=== PATIENT | male | born 1930 | race Caucasian/White ===

== ENCOUNTER 2016-10-02 02:34 | Inpatient (IN) | payer MEDICARE, MEDICAID ==
[2016-10-02] MEDS ORDERED: IPRATROPIUM/ALBUTEROL 0.5-2.5 MG/3 ML AMPUL NEB ONE ×2 (03:10→03:12)
[2016-10-02] MEDS ORDERED: ONDANSETRON HCL INJ/PF 4 MG/2 ML SDV IV ONE (03:10)
--- NOTE | 2016-10-02 03:17 | ER Document Report ---
ED General - General Chief Complaint: Shortness Of Breath Stated Complaint: ABDOMINAL PAIN Time seen by provider: 03:13 Notes: Patient is an 86-year-old male that comes by EMS from [facility] for chief complaint of shortness of breath and coughing up sputum with blood in it. Patient reports that he "threw up" 4 times and had "globs with some red blood in it" but [facility] report states the patient coughed up sputum and the blood. Patient received an initial DuoNeb from EMS after he was found to be 78% on 2 L nasal cannula on arrival, patient does state he is improved, patient states has been coughing for several days, no fever reported. Past medical history of COPD, CAD, hypertension, type II diabetes, DVT, on aspirin. TRAVEL OUTSIDE OF THE [place] IN LAST 30 DAYS: No - Related Data Allergies/Adverse Reactions: cortisone [Cortisone] Allergy (Intermediate, Verified 09/29/15 11:53) Abnormal behavior Past Medical History - General Information source: Patient, Emergency Med Personnel - Social History Smoking Status: Former Smoker Frequency of alcohol use: None Drug Abuse: None Lives with: Custodial Family History: Reviewed & Not Pertinent - Past Medical History Cardiac Medical History: Reports: Hx Hypercholesterolemia, Hx Hypertension Pulmonary Medical History: Reports: Hx Asthma, Hx Bronchitis, Hx COPD, Hx Pneumonia Denies: Hx Tuberculosis Endocrine Medical History: Reports: Hx Diabetes Mellitus Type 1, Hx Diabetes Mellitus Type 2 Renal/ Medical History: Reports: Hx Kidney Stones Musculoskeltal Medical History: Reports Hx Arthritis Skin Medical History: Reports Hx MRSA Psychiatric Medical History: Reports: Hx Anxiety, Hx Depression Past Surgical History: Reports: Hx Tonsillectomy, Hx Urinary Tract Surgery - Immunizations Hx Diphtheria, Pertussis, Tetanus Vaccination: No Hx Pneumococcal Vaccination: 09/22/12 Review of Systems - Review of Systems Constitutional: No symptoms reported EENT: No symptoms reported Cardiovascular: See HPI Respiratory: See HPI Gastrointestinal: No symptoms reported Genitourinary: No symptoms reported Male Genitourinary: No symptoms reported Musculoskeletal: No symptoms reported Skin: No symptoms reported Hematologic/Lymphatic: No symptoms reported Neurological/Psychological: No symptoms reported Physical Exam - Vital signs Vitals: Resp Pulse Ox 16 97 10/02/16 02:46 10/02/16 02:46 Interpretation: Normal - General General appearance: Anxious In distress: Mild - HEENT Head: Normocephalic, Atraumatic Eyes: Normal Pupils: PERRL - Respiratory Respiratory status: Tachypnea Chest status: Nontender Breath sounds: Decreased air movement, Rhonchi, Wheezing Chest palpation: Normal - Cardiovascular Rhythm: Regular, Tachycardia Heart sounds: Normal auscultation, S1 appreciated, S2 appreciated Murmur: No - Abdominal Inspection: Normal Distension: No distension Bowel sounds: Normal Tenderness: Nontender Organomegaly: No organomegaly - Back Back: Normal, Nontender - Extremities General upper extremity: Normal inspection, Nontender, Normal color, Normal ROM , Normal temperature General lower extremity: Normal inspection, Nontender, Normal color, Normal ROM , Normal temperature, Normal weight bearing. No: Navdeep's sign - Neurological Neuro grossly intact: Yes Cognition: Normal Orientation: AAOx4 [place] Coma Scale Eye Opening: Spontaneous [place] Coma Scale Verbal: Oriented [place] Coma Scale Motor: Obeys Commands [place] Coma Scale Total: 15 Speech: Normal Motor strength normal: LUE, RUE, LLE, RLE Sensory: Normal - Psychological Associated symptoms: Normal affect, Normal mood - Skin Skin Temperature: Warm Skin Moisture: Dry Skin Color: Normal Course - Re-evaluation Re-evalutation: Initially stool tested for blood because patient states he vomited blood, this was negative, additional history shows the patient coughed up blood and did not vomit. Patient initially with wheezing, rhonchi, tachypnea, mild distress, will monitor closely, improving already on DuoNeb treatments. Patient is not hypoxic. Leukocytosis at 17.8 with elevated neutrophils. Suspect patient has pneumonia with COPD exacerbation. After treatment with DuoNeb's, magnesium, patient's tachypnea resolved, lungs significantly improved, patient smiling and states he feels much better. Tachycardia almost resolved. Patient becomes hypotensive when he sleeps, patient given IV fluid bolus and this improved, again noted to be somewhat hypotensive, will give additional fluids. CT of the chest shows new area of aneurysm in the descending aspect of the aorta , already present in the ascending aspect, no bleeding vessel noted, no malignancy noted, bronchiectasis with likely pneumonia noted. Patient already treated with Levaquin and cefepime. Discussed with Dr. Bull. Patient discussed with hospitalist Dr. Bond, patient will be admitted to [facility]. 10/02/16 07:46 Troponin repeated and significantly elevated from 0.02 to 0.385. Patient denies any chest pain, denies ever having any chest pain. Patient was not given aspirin because of reported coughing up blood and lack of chest pain. Discussed with patient that he has lab suggesting is having a heart attack, discussed transfer to tertiary care facility for intervention and treatment of this, patient states he does not want to be transferred, patient also states that he does not want in the event of a code to be placed on a vent or to have chest compressions/resuscitation. Patient currently does not have DNR/DNI paperwork. Discussed again with Dr. Bond and he states he see the patient for admission. - Vital Signs Vital signs: Temp Pulse Resp BP Pulse Ox 97.5 F 21 H 92/60 L 99 10/02/16 02:59 10/02/16 07:01 10/02/16 07:01 10/02/16 07:01 - Laboratory Result Diagrams: 10/02/16 02:51 10/02/16 02:51 Laboratory results interpreted by me: 10/02/16 10/02/16 10/02/16 02:51 02:51 02:51 WBC 17.8 H Hgb 11.9 L Hct 36.3 L MCH 26.3 L RDW 17.4 H Seg Neutrophils % 80.8 H Lymphocytes % 10.9 L Absolute Neutrophils 14.4 H VBG pH 7.29 L Sodium 132.4 L Potassium 5.1 H Chloride 96 L BUN 22 H Est GFR (Non-Af Amer) 56 L Glucose 228 H ALT 19 L Creatine Kinase 23 L Albumin 3.1 L Discharge - Discharge Clinical Impression: Shortness of breath, COPD exacerbation Bronchiectasis Qualifiers: Bronchiectasis type: with acute exacerbation Qualified Code(s): J47.1 - Bronchiectasis with (acute) exacerbation Pneumonia Qualifiers: Pneumonia type: due to unspecified organism Laterality: unspecified laterality Lung location: unspecified part of lung Qualified Code(s): J18.9 - Pneumonia, unspecified organism Condition: Serious Disposition: ADMITTED INPATIENT Admitting Provider: Hospitalist - Dr. Bond Unit Admitted: [facility]
[2016-10-02 03:18] LABS: VENOUS BLOOD BASE EXCESS -0.9 mmol/L; VENOUS BLOOD HCO3 26.9 mmol/L (20-32); VENOUS BLOOD PCO2 57.5 mmHg (35-63); VENOUS BLOOD PH 7.29 (7.30-7.42)
[2016-10-02] MEDS ORDERED: NORMAL SALINE 1000 ML 1,000 ML IV ONE (03:19)
[2016-10-02 03:20] LABS: ABSOLUTE BASOPHILS # (AUTO) 0.1 10^3/uL (0.0-0.2); ABSOLUTE EOSINOPHILS # (AUTO) 0.3 10^3/uL (0.0-0.6); ABSOLUTE LYMPHOCYTES (AUTO) 1.9 10^3/uL (0.5-4.7); ABSOLUTE MONOCYTES (AUTO) 1.1 10^3/uL (0.1-1.4); ABSOLUTE NEUT (AUTO) 14.4 10^3/uL (1.7-8.2); BASOPHILS % (AUTO) 0.4 % (0-2); EOSINOPHILS % (AUTO) 1.6 % (0-6); HEMATOCRIT 36.3 % (37.9-51.0); HEMOGLOBIN 11.9 g/dL (13.5-17.0); HGB HCT DIFFERENCE -0.6; LYMPHOCYTES % (AUTO) 10.9 % (13-45); MEAN CORPUSCULAR HEMOGLOBIN 26.3 pg (27.0-33.4); MEAN CORPUSCULAR HGB CONC 32.7 g/dL (32.0-36.0); MEAN CORPUSCULAR VOLUME 81 fl (80-97); MONOCYTES % (AUTO) 6.3 % (3-13); RED BLOOD COUNT 4.51 10^6/uL (4.35-5.55); RED CELL DISTRIBUTION WIDTH 17.4 % (11.5-14.0); SEGMENTED NEUTROPHILS % (AUTO) 80.8 % (42-78); WHITE BLOOD COUNT 17.8 10^3/uL (4.0-10.5)
[2016-10-02 03:23] LABS: PROTHROMBIN TIME 13.2 SEC (11.4-15.4)
[2016-10-02 03:24] LABS: PARTIAL THROMBOPLASTIN TIME 35.5 SEC (23.5-35.8)
[2016-10-02 03:25] LABS: ALANINE AMINOTRANSFERASE 19 U/L (21-72); ALBUMIN 3.1 g/dL (3.5-5.0); ALKALINE PHOSPHATASE 105 U/L (38-126); ANION GAP 8 (5-19); ASPARTATE AMINO TRANSFERASE 30 U/L (17-59); BILIRUBIN,TOTAL 0.4 mg/dL (0.2-1.3); BLOOD UREA NITROGEN 22 mg/dL (7-20); CARBON DIOXIDE 28 mmol/L (22-30); CHLORIDE 96 mmol/L (98-107); CREATINE KINASE 23 U/L (55-170); CREATININE RESULT 1.23 mg/dL (0.52-1.25); GLUCOSE 228 mg/dL (75-110); POTASSIUM 5.1 mmol/L (3.6-5.0); SODIUM 132.4 mmol/L (137-145); TOTAL PROTEIN 7.4 g/dL (6.3-8.2)
[2016-10-02 03:37] LABS: CREATINE KINASE MB 1.25 ng/mL (<4.55); TROPONIN I 0.021 ng/mL
[2016-10-02] MEDS: MAGNESIUM SULFATE/D5W 100 ML IV SCH (03:40)
[2016-10-02] MEDS ORDERED: LEVOFLOXACIN 750 MG/D5W RTU 150 ML IV ONE (04:32)
[2016-10-02] MEDS ORDERED: CEFEPIME 2 GM/D5W RTU 50 ML IV ONE (05:12)
[2016-10-02] MEDS ORDERED: NORMAL SALINE 1000 ML 500 ML IV ONE (06:47)
[2016-10-02] MEDS ORDERED: CEFEPIME 2 GM/D5W RTU 2 GM/50 ML RTUPB IV ONE ×2 (07:03→22:09)
[2016-10-02] MEDS ORDERED: ACETAMINOPHEN 325 MG TABLET PO PRN (08:37)
--- NOTE | 2016-10-02 08:49 | EKG REPORT ---
SEVERITY:- ABNORMAL ECG - SINUS TACHYCARDIA RBBB AND LAFB : Confirmed by: Pedrito Jefferson MD 02-Oct-2016 08:48:14
[2016-10-02] MEDS ORDERED: DEXTROSE 40% GEL 15 GM TUBE PO PRN ×2 (08:55)
[2016-10-02] MEDS ORDERED: DEXTROSE 50%-WATER 25 GM/50 ML DISP.SYRIN IV PRN ×2 (08:55)
[2016-10-02] MEDS ORDERED: GLUCAGON,HUMAN RECOMB 1 MG INJ IM PRN (08:55)
--- NOTE | 2016-10-02 09:23 | PDOC H&P ---
History of Present Illness Admission Date/PCP: 10/02/16 08:20 Patient complains of: Shortness of breath and hemoptysis History of Present Illness: ZEFERINO URBINA is a 86 year old male, with history of chronic hypoxemic respiratory failure, COPD, bronchiectasis presents to the hospital because of shortness of breath with associated hemoptysis and cough of about 1 day duration. The patient has chronic sinus congestion intermittently. No sore throat or chills or fever associated. The patient started to develop coughing last night with hemoptysis. This was followed by shortness of breath and wheezing. Denies any chest pain at all. No palpitation or dizziness. No nausea or vomiting associated. Because of the hemoptysis the patient was sent to the emergency room for evaluation. CT of the chest revealed possible infiltrate or infection and right upper lobe. Patient was given bronchodilators and antibiotic. Patient was continued on his supplemental oxygen. His shortness of breath significantly improved. He was then referred for admission. 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 Past Medical History Past Medical History: Medication reconciliation pending completion and verification from the patient' s pharmacist. Cardiac Medical History: Reports: Hyperlipidema, Hypertension, Other - Thoracic aortic aneurysm Pulmonary Medical History: Reports: Asthma, Bronchitis, Chronic Obstructive Pulmonary Disease (COPD), Pneumonia Denies: Tuberculosis Endocrine Medical History: Reports: Diabetes Mellitus Type 1, Diabetes Mellitus Type 2 Renal/ Medical History: Reports: Other - BPH Musculoskeltal Medical History: Reports: Arthritis Psychiatric Medical History: Reports: Depression Past Surgical History Past Surgical History: Reports: Tonsillectomy Social History Information Source: Patient Lives with: Prison Smoking Status: Former Smoker Frequency of Alcohol Use: None Hx Recreational Drug Use: No Drugs: None Hx Prescription Drug Abuse: No Family History Family History: DM, Malignancy Parental Family History Reviewed: Yes Children Family History Reviewed: Yes Sibling(s) Family History Reviewed.: Yes Medication/Allergy Allergies/Adverse Reactions: cortisone [Cortisone] Allergy (Intermediate, Verified 09/29/15 11:53) Abnormal behavior Review of Systems Constitutional: PRESENT: weakness - Generalized. ABSENT: chills, fever(s), headache(s), weight gain, weight loss Eyes: ABSENT: visual disturbances Ears: ABSENT: hearing changes Nose, Mouth, and Throat: ABSENT: mouth pain, sore throat Cardiovascular: PRESENT: dyspnea on exertion - Chronic. ABSENT: chest pain, edema, orthropnea, palpitations Respiratory: PRESENT: cough, dyspnea, hemoptysis, sputum Gastrointestinal: PRESENT: constipation. ABSENT: abdominal pain, diarrhea, hematemesis, hematochezia, nausea, vomiting Genitourinary: ABSENT: dysuria, hematuria Musculoskeletal: ABSENT: joint swelling Integumentary: ABSENT: rash, wounds Neurological: ABSENT: abnormal gait, abnormal speech, confusion, dizziness, focal weakness, syncope Psychiatric: ABSENT: anxiety, depression, homidical ideation, suicidal ideation Endocrine: ABSENT: cold intolerance, heat intolerance, polydipsia, polyuria Hematologic/Lymphatic: ABSENT: easy bleeding, easy bruising Physical Exam Vital Signs: Temp Pulse Resp BP Pulse Ox 97.5 F 21 H 92/60 L 99 10/02/16 02:59 10/02/16 07:01 10/02/16 07:01 10/02/16 07:01 General appearance: PRESENT: cooperative, mild distress Head exam: PRESENT: atraumatic, normocephalic Eye exam: PRESENT: conjunctiva pink, EOMI, PERRLA - Sluggish. ABSENT: scleral icterus Ear exam: PRESENT: normal external ear exam. ABSENT: drainage Mouth exam: PRESENT: dry mucosa, neck supple, tongue midline Throat exam: ABSENT: post pharyngeal erythema Neck exam: ABSENT: carotid bruit, JVD, lymphadenopathy, thyromegaly Respiratory exam: PRESENT: rales - Crepitant dry rales posteriorly bilateral, rhonchi - Scattered bilateral, wheezes - Minimal bilateral Cardiovascular exam: PRESENT: RRR, +S1, +S2. ABSENT: diastolic murmur, gallop, rubs, systolic murmur Pulses: PRESENT: normal dorsalis pedis pul Vascular exam: PRESENT: normal capillary refill GI/Abdominal exam: PRESENT: distended - Mildly, normal bowel sounds, soft, other - Slightly tympanitic. ABSENT: guarding, mass, organolmegaly, rebound, tenderness Rectal exam: PRESENT: deferred Extremities exam: PRESENT: full ROM. ABSENT: calf tenderness, clubbing, pedal edema Neurological exam: PRESENT: alert, awake, oriented to situation Psychiatric exam: PRESENT: appropriate affect, normal mood. ABSENT: homicidal ideation, suicidal ideation Skin exam: PRESENT: dry, intact, warm. ABSENT: cyanosis, rash Results Impressions: Acute Abdomen Series 10/02/16 03:09 IMPRESSION: NO RADIOGRAPHIC EVIDENCE FOR ACUTE ABDOMINAL DISEASE. MODERATE FECAL RETENTION MOST NOTABLY WITHIN THE RECTAL VAULT. CORRELATE WITH PHYSICAL EXAM FOR EVIDENCE OF FECAL IMPACTION. Chest/Abdomen CTA 10/02/16 05:21 IMPRESSION: 1. No acute pulmonary embolus identified. 2. There is aneurysmal dilatation of the ascending and descending thoracic aorta as above. No dilated bronchial artery is identified to suggest bronchial artery hemorrhage. 3. There is bronchiectatic changes noted throughout the lungs, similar to prior studies most prominent in both lower lobes. There is scarring seen throughout the the lungs most notably in the dependent portions. There is some tree-in- bud and ground-glass opacities seen in the right upper lobe which could represent an area of infection/ inflammation. There is extensive centrilobular emphysematous disease noted throughout. 4. Mediastinal adenopathy with the largest lymph nodes measuring approximate 1.2 cm in AP dimension these could represent reactive adenopathy versus metastatic lymph nodes, reactive adenopathy is favored as there is no evidence of malignancy on this study. Assessment & Plan - Diagnosis (1) Pneumonia Qualifiers: Pneumonia type: due to unspecified organism Laterality: right Lung location: upper lobe of lung Qualified Code(s): J18.1 - Lobar pneumonia, unspecified organism Is this a current diagnosis for this admission?: Yes (2) Chronic hypoxemic respiratory failure Is this a current diagnosis for this admission?: Yes (3) Bronchiectasis Qualifiers: Bronchiectasis type: with acute exacerbation Qualified Code(s): J47.1 - Bronchiectasis with (acute) exacerbation Is this a current diagnosis for this admission?: Yes (4) COPD exacerbation Is this a current diagnosis for this admission?: Yes (5) Hyperkalemia Is this a current diagnosis for this admission?: Yes (6) Hyponatremia Is this a current diagnosis for this admission?: Yes (7) Elevated troponin Is this a current diagnosis for this admission?: Yes (8) Constipation Qualifiers: Constipation type: unspecified constipation type Qualified Code(s): K59.00 - Constipation, unspecified Is this a current diagnosis for this admission?: Yes (9) Thoracic aortic aneurysm Qualifiers: Presence of rupture: without rupture Qualified Code(s): I71.2 - Thoracic aortic aneurysm, without rupture Is this a current diagnosis for this admission?: Yes (10) Hypertension Qualifiers: Hypertension type: essential hypertension Qualified Code(s): I10 - Essential (primary) hypertension Is this a current diagnosis for this admission?: Yes (11) Coronary artery disease Qualifiers: Coronary Disease-Associated Artery/Lesion type: [place] artery [place] vs. transplanted heart: [place] heart Associated angina: without angina Qualified Code(s): I25.10 - Atherosclerotic heart disease of [place] coronary artery without angina pectoris Is this a current diagnosis for this admission?: Yes (12) Type 2 diabetes mellitus with hyperglycemia Qualifiers: Diabetes mellitus penitentiary insulin use: with technician terminal and repeater use Qualified Code(s): E11.65 - Type 2 diabetes mellitus with hyperglycemia; Z79.4 - technician terminal and repeater (current) use of insulin Is this a current diagnosis for this admission?: Yes (13) BPH (benign prostatic hyperplasia) Qualifiers: Prostatic enlargement morphology: unspecified morphology Lower urinary tract symptom presence: presence of symptoms unspecified Qualified Code(s ): N40.0 - Benign prostatic hyperplasia without lower urinary tract symptoms Is this a current diagnosis for this admission?: Yes (14) Chronic back pain Qualifiers: Back pain location: back pain in unspecified location Back pain laterality: unspecified Qualified Code(s): M54.9 - Dorsalgia, unspecified ; G89.29 - Other chronic pain Is this a current diagnosis for this admission?: Yes - Time Time Spent: 50 to 70 Minutes - Inpatient Certification Based on my medical assessment, after consideration of the patient's comorbidities, presenting symptoms, or acuity I expect that the services needed warrant INPATIENT care.: Yes I certify that my determination is in accordance with my understanding of Medicare's requirements for reasonable and necessary INPATIENT services [42 CFR 412.3e].: Yes Medical Necessity: Significant Comorbidiites Make Outpatient Treatment Too Risky , Need For IV Fluids, Need for Nebulizer Therapy and Monitoring of Response, Need for IV Antibiotics, Risk of Complication if Not Cared For in Hospital Post Hospital Care: D/C Assistant Teaching Professor Documentation - Plan Summary Plan Summary: The patient will be admitted to [facility]. The patient does not want to be transferred to a tertiary facility for any aggressive procedures. Patient is aware of the elevated troponin. Patient does not want to be resuscitated in the event of cardiorespiratory arrest as well. Patient will be made DO NOT RESUSCITATE then. In the meantime I will put the patient on broad-spectrum antibiotic with Levaquin and cefepime. We will give bronchodilators. Xopenex and Atrovent. I will continue the patient's Advair. We will culture blood and sputum. DVT prophylaxis with Lovenox will be placed. Patient will be on aspirin and Plavix. I will hold full anticoagulation due to hemoptysis. We will monitor electrolytes. Hopefully with hydration the patient's sodium will improve and potassium likewise normalized. I will hold the patient's Cozaar. We will give stool softeners and MiraLAX for constipation. We will serially obtain cardiac enzymes and consult cardiology service for further input. I will obtain an echocardiogram. A follow-up EKG will be done in the morning. He will be on sliding scale insulin. I will increase his basal insulin. Further testing depends on the initial evaluation as outlined above.
[2016-10-02] MEDS: CLOPIDOGREL BISULFATE 75 MG TABLET PO SCH (10:13)
[2016-10-02] MEDS: ASPIRIN 81 MG TABLET, CHEWABLE PO SCH (10:13)
[2016-10-02] MEDS: FLUOXETINE HCL 20 MG CAPSULE PO SCH (10:13)
[2016-10-02] MEDS: DOCUSATE SODIUM 100 MG CAPSULE PO SCH ×2 (10:13→17:59)
[2016-10-02] MEDS: FINASTERIDE 5 MG TABLET PO SCH (10:13)
[2016-10-02] MEDS: NORMAL SALINE 1000 ML 1,000 ML IV PRN ×2 (10:14→20:02)
[2016-10-02] MEDS: INSULIN REG, HUMAN 100 UNIT/ML 3 ML VIAL (PYX) SUBCUT PRN (10:14)
[2016-10-02] MEDS ORDERED: LANSOPRAZOLE 30 MG TAB.RAP.DR PO ONE (11:00)
[2016-10-02] MEDS ORDERED: POLYETHYLENE GLYCOL 3350 POWDER 17 GM/1 PACKET PO ONE (11:30)
[2016-10-02] MEDS ORDERED: ENOXAPARIN SODIUM INJ 40 MG/0.4 ML DISP.SYRIN SUBCUT ONE (11:30)
[2016-10-02 12:44] LABS: CREATINE KINASE MB 3.63 ng/mL (<4.55)
[2016-10-02] MEDS: IPRATROPIUM BROMIDE 0.02% NEB 0.5 MG/2.5 ML AMPUL NEB SCH ×3 (12:51→20:15)
[2016-10-02] MEDS: LEVALBUTEROL HCL NEB 1.25 MG/3 ML AMPUL NEB SCH ×3 (12:51→20:15)
[2016-10-02 12:52] LABS: TROPONIN I 0.443 ng/mL
--- NOTE | 2016-10-02 12:59 | PDOC CONSULTATION ---
Consultation Consult Date: 10/02/16 Attending physician:: JOLIE BOND Consult reason:: Abnormal troponin I elevation History of Present Illness Admission Date/PCP: 10/02/16 08:37 Patient complains of: Shortness of breath History of Present Illness: ZEFERINO URBINA is a 86 year old male, with history of chronic hypoxemic respiratory failure, COPD, bronchiectasis presents to the hospital because of shortness of breath with associated hemoptysis and cough of about 1 day duration. The patient has chronic sinus congestion intermittently. No sore throat or chills or fever associated. The patient started to develop coughing last night with hemoptysis. This was followed by shortness of breath and wheezing. Denies any chest pain at all. No palpitation or dizziness. No nausea or vomiting associated. Because of the hemoptysis the patient was sent to the emergency room for evaluation. CT of the chest revealed possible infiltrate or infection and right upper lobe. Patient was given bronchodilators and antibiotic. Patient was continued on his supplemental oxygen. His shortness of breath significantly improved. He was then referred for admission. 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 On repeated questioning patient denied any chest pain. Patient denied any sustained palpitations, syncope, near syncope. Patient has noted some intermittent pedal edema. Patient claims to have low- grade fever but denied any chills. Past Medical History Cardiac Medical History: Reports: Hyperlipidema, Hypertension, Other - Thoracic aortic aneurysm Pulmonary Medical History: Reports: Asthma, Bronchitis, Chronic Obstructive Pulmonary Disease (COPD), Pneumonia Denies: Tuberculosis Endocrine Medical History: Reports: Diabetes Mellitus Type 1, Diabetes Mellitus Type 2 Renal/ Medical History: Reports: Other - BPH Musculoskeltal Medical History: Reports: Arthritis Psychiatric Medical History: Reports: Depression Past Surgical History Past Surgical History: Reports: Tonsillectomy Social History Information Source: Patient Lives with: [facility] Smoking Status: Former Smoker Frequency of Alcohol Use: None Hx Recreational Drug Use: No Drugs: None Hx Prescription Drug Abuse: No - Advance Directive Resuscitation Status: Do Not Resuscitate Family History Family History: Reviewed & Not Pertinent, DM, Malignancy Parental Family History Reviewed: Yes Children Family History Reviewed: Yes Sibling(s) Family History Reviewed.: Yes - Negative for premature coronary artery disease or sudden cardiac in the family amongst first degree relatives. Medication/Allergy Home Medications: Acetaminophen [Tylenol 325 mg Tablet] 650 mg PO Q6HP PRN 10/02/16 Aspirin [Lo-Dose Aspirin EC] 81 mg PO DAILY 10/02/16 Bisacodyl [Dulcolax 10 mg Supp.rect] 10 mg CA DAILYP PRN 10/02/16 Finasteride [Proscar 5 mg Tablet] 5 mg PO DAILY 10/02/16 Fluoxetine HCl [Prozac 20 mg Capsule] 20 mg PO DAILY 10/02/16 Fluticasone/Salmeterol [Advair 250-50 Diskus 14 Dose/Diskus] 1 puff IH Q12 10/02 Guaifenesin [Mucinex Sr 600 mg Tablet.sa] 600 mg PO BID 10/02/16 Ibuprofen [Motrin 800 mg Tablet] 800 mg PO BIDP PRN 10/02/16 Insulin Aspart [Novolog Insulin (Aspart) 100 unit/mL] See Protocol SQ ACHS 10/02 Insulin Glargine,Hum.rec.anlog [Lantus] 10 units SQ QHS 10/02/16 Ipratropium/Albuterol Sulfate [Iprat-Albut 0.5-3(2.5) mg/3 ml] 3 ml NEB Q6HP PRN 10/02/16 Losartan Potassium [Cozaar 25 mg Tablet] 25 mg PO DAILY 10/02/16 Melatonin 10 mg PO HSP PRN 10/02/16 Metformin HCl [Glucophage] 500 mg PO BIDPCBS 10/02/16 Mirtazapine [Remeron 15 mg Tablet] 7.5 mg PO QHS 10/02/16 Multivitamin [Daily Multiple Vitamin] 1 each PO DAILY 10/02/16 Polyethylene Glycol 3350 [Miralax Powder 17 gm/Packet] 17 gm PO DAILYP PRN 10/02 Umeclidinium [place] [Incruse Ellipta] 1 puff IH DAILY 10/02/16 Allergies/Adverse Reactions: cortisone [Cortisone] Allergy (Intermediate, Verified 09/29/15 11:53) Abnormal behavior Review of Systems Review of Systems: Please see history of present illness and past medical history as wall. Constitutional: Low-grade fever but no chills reported. Head : No recent chronic headaches, recent head injury. Eyes: No recent eye pain, diplopia, redness, discharge, acute visual changes. Ears: No recent chronic ear pain, acute hearing loss, ear discharge. Oral cavity: No recent ulcerations, bleeding, oral cavity discomfort. Neck: No recent acute neck pain reported. Hematologic: No recent easy bruising or bleeding or hematologic malignancy reported. Lymphatic: No recent lymphatic malignancy, chronic lymphadenopathy reported yet Cardiovascular system review: See history of present illness. Respiratory system review: Recent cough with hemoptysis but no blood clots in the lungs reported. Mild Shortness of breath on exertion Gastrointestinal system review: Negative for any recent acute or chronic abdominal pain, hematemesis, melena, recent change in bowel habits. Genitourinary system review: No recent acute or chronic hematuria, flank pain, UTI etc. reported. Skin system review: Negative for any recent abnormal bruising, no rash, no pruritus reported. Neurologic: No prior history of strokes, mini strokes, seizure disorder. Psychologic: No history of major psychosis or depression reported. Musculoskeletal: Minor aches and pains reported. No acute joint swelling reported. Endocrine: No recent polyuria, polydipsia, recent heat or cold intolerance. Physical Exam Vital Signs: Temp Pulse Resp BP Pulse Ox 97.9 F 101 H 22 H 105/66 97 10/02/16 12:45 10/02/16 12:45 10/02/16 12:45 10/02/16 12:45 10/02/16 12:45 Intake & Output 10/01/16 10/02/16 10/03/16 06:59 06:59 06:59 Weight 61.8 kg Exam: GENERAL: well-nourished and in no acute distress. Alert and oriented x3 HEAD: Atraumatic, normocephalic. EYES: Pupils equal round and reactive to light, extraocular movements intact, sclera anicteric, conjunctiva are normal. ENT: TMs normal, nares patent, oropharynx clear without exudates. Moist mucous membranes. No oral ulcerations or bleeding gums noted NECK: supple without lymphadenopathy. Trachea is central. No cervical or axillary lymphadenopathy noted. Carotids are 2+, JVD WNL LUNGS: Respiration seems mildly, no significant accessory muscle action noted. Bilateral mild crackles as well as wheezes rales or rhonchi noted. No significant dullness noted on percussion. CHEST: Palpation of the chest wall shows no significant chest wall tenderness or abnormalities. HEART: [place] GAS TENDER, No PSH, 1/6 [place] aortic area, 1/6 [place] systolic murmur mitral area, no rubs, no gallops. ABDOMEN: Soft, no significant tenderness appreciated, normoactive bowel sounds. No guarding, no rebound. No rigidity noted . No masses appreciated. EXTREMITIES: Pedal pulses are 1-2+, no calf tenderness noted. No clubbing or cyanosis.trace to 1+ pedal edema noted NEUROLOGICAL: Focused neurological exam showed no significant neurologic deficit. Normal speech, no focal weakness appreciated. PSYCH: Normal mood, normal affect. Judgment and insight within normal limits. SKIN: No significant ecchymosis, rash, ulcerations or signs of pruritus noted. MUSCULOSKELETAL EXAM: No significant joint swelling noted. Results Laboratory Results: 10/02/16 11:59 Creatine Kinase 30 L EKG Comments: Sinus tachycardia with right bundle branch block changes. No acute ST-T wave changes noted Impressions: Acute Abdomen Series 10/02/16 03:09 IMPRESSION: NO RADIOGRAPHIC EVIDENCE FOR ACUTE ABDOMINAL DISEASE. MODERATE FECAL RETENTION MOST NOTABLY WITHIN THE RECTAL VAULT. CORRELATE WITH PHYSICAL EXAM FOR EVIDENCE OF FECAL IMPACTION. Chest/Abdomen CTA 10/02/16 05:21 IMPRESSION: 1. No acute pulmonary embolus identified. 2. There is aneurysmal dilatation of the ascending and descending thoracic aorta as above. No dilated bronchial artery is identified to suggest bronchial artery hemorrhage. 3. There is bronchiectatic changes noted throughout the lungs, similar to prior studies most prominent in both lower lobes. There is scarring seen throughout the the lungs most notably in the dependent portions. There is some tree-in- bud and ground-glass opacities seen in the right upper lobe which could represent an area of infection/ inflammation. There is extensive centrilobular emphysematous disease noted throughout. 4. Mediastinal adenopathy with the largest lymph nodes measuring approximate 1.2 cm in AP dimension these could represent reactive adenopathy versus metastatic lymph nodes, reactive adenopathy is favored as there is no evidence of malignancy on this study. Assessment & Plan - Diagnosis (1) Elevated troponin Is this a current diagnosis for this admission?: Yes (2) Bronchiectasis Qualifiers: Bronchiectasis type: with acute lower respiratory infection Qualified Code(s): J47.0 - Bronchiectasis with acute lower respiratory infection Is this a current diagnosis for this admission?: Yes (3) COPD exacerbation Is this a current diagnosis for this admission?: Yes (4) Thoracic aortic aneurysm Qualifiers: Presence of rupture: without rupture Qualified Code(s): I71.2 - Thoracic aortic aneurysm, without rupture Is this a current diagnosis for this admission?: Yes (5) Pneumonia Qualifiers: Laterality: right Lung location: upper lobe of lung Is this a current diagnosis for this admission?: Yes (6) Non-STEMI (non-ST elevated myocardial infarction) Is this a current diagnosis for this admission?: Yes (7) Respiratory failure Qualifiers: Chronicity: acute on chronic Respiratory failure complication: hypoxia Qualified Code(s): J96.21 - Acute and chronic respiratory failure with hypoxia Is this a current diagnosis for this admission?: Yes - Notes Notes: Elevated troponin I: Patient has been noted to have elevated troponin I. This is felt to be in the significant range. Most likely related to type II myocardial infarction and non-STEMI related to supply demand mismatch. This could be from hypoxemia, possible sepsis, tachycardia related etc. at this point would recommend 2-D echocardiogram which has already been ordered. We'll recommend aspirin therapy, statin therapy, if EF WNL then would recommend starting Cardizem. If EF is low would recommend selective beta-1 blockers. Do not feel full dose anticoagulation is indicated in view of recent hemoptysis. Non-STEMI: Related to supply demand mismatch. Cannot rule out acute coronary syndrome in an elderly patient. Will repeat an EKG. Will add Ranexa. Bronchiectasis: Continue with antibiotic therapy. COPD exacerbation: Maintain oxygenation and ventilation. Currently patient just in mild respiratory distress. Continue bronchodilator therapy. Respiratory failure: Acute on chronic predominantly hypoxemic but cannot rule out both hypoxemic and hypercapnic. The ABG was ordered to evaluate this further. Thoracic artery aneurysm: Currently is small in size. Observe. Recommend good control of blood pressure. Pneumonia: Right upper lobe noted on CT scan. Continue antibiotic therapy. - Time Time Spent: 50 to 70 Minutes - CODE STATUS : was discussed, patient remains DO NOT RESUSCITATE. Surrogate decision-maker patient's children. Multiple medical problems were addressed.More than 50% of the time spent coordinating care, discussing management plans with involved caregivers. Management plans discussed with involved personnels. Medical decision making was of high complexity. Discussed with Dr. Dr. Bond. 2-D echo was reviewed which shows depressed LVEF. Twelve-lead EKG reviewed showed nonspecific T-wave inversion which are noted to be new. BNP level became back elevated.
--- NOTE | 2016-10-02 13:59 | XCELERA REPORT ---
[address] [address] Transthoracic Echocardiogram Report Name: ZEFERINO URBINA Age: 86 yrs Gender: Male : 1930 Patient Status: Inpatient Patient Location: [id number] Study Date: 10/02/2016 12:39 PM Height: 72 in Weight: 160 lb BSA: 1.9 m2 Procedure: A complete two-dimensional transthoracic echocardiogram was performed (2D, M-mode, spectral and color flow Doppler). The study was technically difficult with many images being suboptimal in quality. Reason For Study: abnormal troponin Ordering Physician: JOLIE EMMANUEL Performed By: Donya Montanez Interpretation Summary The study was technically difficult with many images being suboptimal in quality. The Ejection Fraction estimate is 35-40% Left ventricular systolic function is moderately reduced. There is normal left ventricular wall thickness. The left ventricle is grossly normal size. Doppler measurements suggest pseudonormalized left ventricular relaxation, which is associated with grade II/IV or mild to moderate diastolic dysfunction There is moderate global hypokinesis of the left ventricle. The right ventricle is mild to moderately dilated. The right ventricle appears to be hypertrophied The right ventricular systolic function is mildly reduced. The right atrium is mildly dilated. The left atrial size is normal. There is no mitral valve stenosis. There is no aortic valve stenosis There is a trace amount of aortic regurgitation There is a trace to mild amount of tricuspid regurgitation There is mild to moderate pulmonary hypertension by echo Right ventricular systolic pressure is estimated to be elevated at 40- 50mmHg. There is no pericardial effusion. MMode/2D Measurements \T\ Calculations RVDd: 2.6 cm LVIDd: 4.5 cm FS: 18.2 % Ao root diam: 4.4 cm IVSd: 0.84 cm LVIDs: 3.7 cm EDV(Teich): 93.7 ml LVPWd: 0.77 cm ESV(Teich): 58.2 ml Ao root area: 15.0 cm2 EF(Teich): 37.9 % LA dimension: 2.6 cm Doppler Measurements \T\ Calculations MV E max art: MV P1/2t max art: Ao V2 max: LV V1 max P.1 cm/sec 73.5 cm/sec 67.1 cm/sec 1.5 mmHg MV A max art: MV P1/2t: 43.6 msec Ao max PG: LV V1 max: 108.6 cm/sec 1.8 mmHg 61.7 cm/sec MV E/A: 0.67 MVA(P1/2t): 5.0 cm2 MV dec slope: 494.0 cm/sec2 MV dec time: 0.15 sec PA V2 max: TR max art: 61.7 cm/sec 294.8 cm/sec PA max P.5 mmHg TR max P.8 mmHg Left Ventricle The left ventricle is grossly normal size. There is normal left ventricular wall thickness. The Ejection Fraction estimate is 35-40%. Left ventricular systolic function is moderately reduced. Doppler measurements suggest pseudonormalized left ventricular relaxation, which is associated with grade II/IV or mild to moderate diastolic dysfunction. There is moderate global hypokinesis of the left ventricle. Right Ventricle The right ventricle is mild to moderately dilated. The right ventricle appears to be hypertrophied. The right ventricular systolic function is mildly reduced. Atria The right atrium is mildly dilated. The left atrial size is normal. Interarterial septum not well visualized and not well dopplered. Cannot comment on ASD/PFO presence. Mitral Valve There is mild mitral leaflet calcification. There is mild mitral annular calcification. There is no mitral valve stenosis. There is a trace amount of mitral regurgitation. Aortic Valve The aortic valve is mildly calcified. There is no aortic valve stenosis. There is a trace amount of aortic regurgitation. Tricuspid Valve The tricuspid valve is not well visualized secondary to technical limitations. There is no tricuspid stenosis. There is a trace to mild amount of tricuspid regurgitation. There is mild to moderate pulmonary hypertension by echo. Right ventricular systolic pressure is estimated to be elevated at 40-50mmHg. Pulmonic Valve The pulmonic valve is not well visualized. Great Vessels The aortic root is not well visualized. The inferior vena cava appeared normal and decreased > 50% with respiration (RAP 5-10 mmHg). Effusions There is no pericardial effusion. : JOLIE EMMANUEL > Archana Mathew
[2016-10-02 15:14] LABS: ARTERIAL BLOOD BASE EXCESS -5.3 mmol/L; ARTERIAL BLOOD O2 SATURATION 96.4 % (94-98)
[2016-10-02 17:19] LABS: CREATINE KINASE MB 3.41 ng/mL (<4.55); TROPONIN I 0.369 ng/mL
[2016-10-02] MEDS: FLUTICASONE/SALMETEROL DISKUS 250-50 MCG/DOSE IH SCH (17:58)
--- NOTE | 2016-10-02 19:39 | EKG REPORT ---
SEVERITY:- ABNORMAL ECG - SINUS RHYTHM ATRIAL PREMATURE COMPLEX RIGHT BUNDLE BRANCH BLOCK AND LAFB : Confirmed by: Pedrito Jefferson MD 02-Oct-2016 19:39:05
[2016-10-02] MEDS ORDERED: NORMAL SALINE 1000 ML 250 ML IV ONE (19:54)
[2016-10-02 21:00] LABS: CREATINE KINASE MB 3.25 ng/mL (<4.55); TROPONIN I 0.302 ng/mL
[2016-10-02] MEDS ORDERED: CEFEPIME 2 GM/D5W RTU 2 GM/50 ML RTUPB IV SCH (22:00)
[2016-10-02] MEDS: RANOLAZINE 500 MG TAB.SR.12H PO SCH (22:16)
[2016-10-02] MEDS: MIRTAZAPINE 15 MG TABLET PO SCH (22:17)
[2016-10-02] MEDS: INSULIN GLARGINE,HUM.REC.ANLOG 300 UNIT/3 ML INSULN.PEN SUBCUT SCH (22:18)
[2016-10-03] MEDS: IPRATROPIUM BROMIDE 0.02% NEB 0.5 MG/2.5 ML AMPUL NEB SCH ×6 (00:15→20:43)
[2016-10-03] MEDS: LEVALBUTEROL HCL NEB 1.25 MG/3 ML AMPUL NEB SCH ×6 (00:15→20:43)
[2016-10-03 02:43] LABS: ABSOLUTE BASOPHILS # (AUTO) 0.1 10^3/uL (0.0-0.2); ABSOLUTE EOSINOPHILS # (AUTO) 0.1 10^3/uL (0.0-0.6); ABSOLUTE LYMPHOCYTES (AUTO) 0.9 10^3/uL (0.5-4.7); ABSOLUTE MONOCYTES (AUTO) 0.8 10^3/uL (0.1-1.4); BASOPHILS % (AUTO) 0.6 % (0-2); EOSINOPHILS % (AUTO) 1.4 % (0-6); HEMATOCRIT 32.6 % (37.9-51.0); HEMOGLOBIN 10.2 g/dL (13.5-17.0); LYMPHOCYTES % (AUTO) 10.4 % (13-45); MEAN CORPUSCULAR HEMOGLOBIN 25.2 pg (27.0-33.4); MEAN CORPUSCULAR HGB CONC 31.2 g/dL (32.0-36.0); MEAN CORPUSCULAR VOLUME 81 fl (80-97); MONOCYTES % (AUTO) 8.7 % (3-13); RED BLOOD COUNT 4.04 10^6/uL (4.35-5.55); RED CELL DISTRIBUTION WIDTH 17.4 % (11.5-14.0); SEGMENTED NEUTROPHILS % (AUTO) 78.9 % (42-78); WHITE BLOOD COUNT 8.9 10^3/uL (4.0-10.5)
[2016-10-03 03:06] LABS: ANION GAP 8 (5-19); BLOOD UREA NITROGEN 21 mg/dL (7-20); CALCIUM 8.2 mg/dL (8.4-10.2); CARBON DIOXIDE 23 mmol/L (22-30); CHLORIDE 103 mmol/L (98-107); CREATININE RESULT 1.25 mg/dL (0.52-1.25); GLUCOSE 132 mg/dL (75-110); POTASSIUM 4.8 mmol/L (3.6-5.0)
[2016-10-03] MEDS: FLUTICASONE/SALMETEROL DISKUS 250-50 MCG/DOSE IH SCH ×2 (05:55→18:23)
[2016-10-03] MEDS: LANSOPRAZOLE 30 MG TAB.RAP.DR PO SCH (05:55)
[2016-10-03] MEDS ORDERED: ENOXAPARIN SODIUM INJ 40 MG/0.4 ML DISP.SYRIN SUBCUT SCH (08:00)
[2016-10-03] MEDS: POLYETHYLENE GLYCOL 3350 POWDER 17 GM/1 PACKET PO SCH (09:00)
--- NOTE | 2016-10-03 09:00 | PDOC PROGRESS REPORT ---
Subjective Progress Note for:: 10/03/16 Subjective:: Patient is feeling a lot better. Coughing is less. No hemoptysis. Wheezing much better. No paroxysmal nocturnal dyspnea nor orthopnea. No increasing edema. No chest pain at all. Physical Exam Vital Signs: Temp Pulse Resp BP Pulse Ox 97.6 F 92 18 92/53 L 98 10/03/16 07:23 10/03/16 07:23 10/03/16 07:23 10/03/16 07:23 10/03/16 07:23 Intake & Output 10/02/16 10/03/16 10/04/16 06:59 06:59 06:59 Intake Total 2030 Balance 2030 Weight 68.5 kg General appearance: PRESENT: no acute distress, cooperative, thin Head exam: PRESENT: normocephalic Eye exam: PRESENT: EOMI Mouth exam: PRESENT: moist, neck supple Neck exam: ABSENT: JVD Respiratory exam: PRESENT: decreased breath sounds - Bilateral, rhonchi - Minimal bilateral, unlabored Cardiovascular exam: PRESENT: RRR. ABSENT: gallop GI/Abdominal exam: PRESENT: normal bowel sounds, soft. ABSENT: distended, tenderness Extremities exam: ABSENT: pedal edema Neurological exam: PRESENT: alert, awake, oriented to situation Skin exam: PRESENT: dry, warm. ABSENT: cyanosis Results Laboratory Results: 10/03/16 02:18 10/03/16 02:18 10/02/16 10/03/16 10/03/16 14:35 02:18 02:18 WBC 8.9 RBC 4.04 L Hgb 10.2 L Hct 32.6 L MCV 81 MCH 25.2 L MCHC 31.2 L RDW 17.4 H Plt Count 330 Seg Neutrophils % 78.9 H Lymphocytes % 10.4 L Monocytes % 8.7 Eosinophils % 1.4 Basophils % 0.6 Absolute Neutrophils 7.0 Absolute Lymphocytes 0.9 Absolute Monocytes 0.8 Absolute Eosinophils 0.1 Absolute Basophils 0.1 Carbonic Acid 1.06 HCO3/H2CO3 Ratio 18:1 ABG pH 7.36 ABG pCO2 35.1 ABG pO2 86.9 ABG HCO3 19.4 L ABG O2 Saturation 96.4 ABG Base Excess -5.3 FiO2 2L Sodium 134.0 L Potassium 4.8 Chloride 103 Carbon Dioxide 23 Anion Gap 8 BUN 21 H Creatinine 1.25 Est GFR ( Amer) > 60 Est GFR (Non-Af Amer) 55 L Glucose 132 H Calcium 8.2 L 10/02/16 10/02/16 10/02/16 11:59 11:59 11:59 Creatine Kinase 30 L CK-MB (CK-2) 3.63 Troponin I 0.443 NT-Pro-B Natriuret Pep 2280 H 10/02/16 10/02/16 10/02/16 16:41 16:41 20:25 Creatine Kinase 38 L 34 L CK-MB (CK-2) 3.41 Troponin I 0.369 NT-Pro-B Natriuret Pep 10/02/16 10/03/16 20:25 02:18 Creatine Kinase CK-MB (CK-2) 3.25 Troponin I 0.302 0.261 NT-Pro-B Natriuret Pep Impressions: Acute Abdomen Series 10/02/16 03:09 IMPRESSION: NO RADIOGRAPHIC EVIDENCE FOR ACUTE ABDOMINAL DISEASE. MODERATE FECAL RETENTION MOST NOTABLY WITHIN THE RECTAL VAULT. CORRELATE WITH PHYSICAL EXAM FOR EVIDENCE OF FECAL IMPACTION. Chest/Abdomen CTA 10/02/16 05:21 IMPRESSION: 1. No acute pulmonary embolus identified. 2. There is aneurysmal dilatation of the ascending and descending thoracic aorta as above. No dilated bronchial artery is identified to suggest bronchial artery hemorrhage. 3. There is bronchiectatic changes noted throughout the lungs, similar to prior studies most prominent in both lower lobes. There is scarring seen throughout the the lungs most notably in the dependent portions. There is some tree-in- bud and ground-glass opacities seen in the right upper lobe which could represent an area of infection/ inflammation. There is extensive centrilobular emphysematous disease noted throughout. 4. Mediastinal adenopathy with the largest lymph nodes measuring approximate 1.2 cm in AP dimension these could represent reactive adenopathy versus metastatic lymph nodes, reactive adenopathy is favored as there is no evidence of malignancy on this study. Assessment & Plan - Diagnosis (1) Pneumonia Qualifiers: Pneumonia type: due to unspecified organism Laterality: right Lung location: upper lobe of lung Qualified Code(s): J18.1 - Lobar pneumonia, unspecified organism Is this a current diagnosis for this admission?: Yes (2) Chronic hypoxemic respiratory failure Is this a current diagnosis for this admission?: Yes (3) Bronchiectasis Qualifiers: Bronchiectasis type: with acute lower respiratory infection Qualified Code(s): J47.0 - Bronchiectasis with acute lower respiratory infection Is this a current diagnosis for this admission?: Yes (4) COPD exacerbation Is this a current diagnosis for this admission?: Yes (5) Hyperkalemia Is this a current diagnosis for this admission?: Yes (6) Hyponatremia Is this a current diagnosis for this admission?: Yes (7) Elevated troponin Is this a current diagnosis for this admission?: Yes (8) Constipation Qualifiers: Constipation type: unspecified constipation type Qualified Code(s): K59.00 - Constipation, unspecified Is this a current diagnosis for this admission?: Yes (9) Thoracic aortic aneurysm Qualifiers: Presence of rupture: without rupture Qualified Code(s): I71.2 - Thoracic aortic aneurysm, without rupture Is this a current diagnosis for this admission?: Yes (10) Hypertension Qualifiers: Hypertension type: essential hypertension Qualified Code(s): I10 - Essential (primary) hypertension Is this a current diagnosis for this admission?: Yes (11) Coronary artery disease Qualifiers: Coronary Disease-Associated Artery/Lesion type: [place] artery [place] vs. transplanted heart: [place] heart Associated angina: without angina Qualified Code(s): I25.10 - Atherosclerotic heart disease of [place] coronary artery without angina pectoris Is this a current diagnosis for this admission?: Yes (12) Type 2 diabetes mellitus with hyperglycemia Qualifiers: Diabetes mellitus mule spinner insulin use: with intermediate use Qualified Code(s): E11.65 - Type 2 diabetes mellitus with hyperglycemia Is this a current diagnosis for this admission?: Yes (13) BPH (benign prostatic hyperplasia) Qualifiers: Prostatic enlargement morphology: unspecified morphology Lower urinary tract symptom presence: presence of symptoms unspecified Qualified Code(s ): N40.0 - Benign prostatic hyperplasia without lower urinary tract symptoms Is this a current diagnosis for this admission?: Yes (14) Chronic back pain Qualifiers: Back pain location: back pain in unspecified location Back pain laterality: unspecified Qualified Code(s): M54.9 - Dorsalgia, unspecified ; G89.29 - Other chronic pain Is this a current diagnosis for this admission?: Yes - Time Time Spent with patient: 25-34 minutes - Plan Summary Plan Summary: Patient had an episode of hypotension last night. Normal saline bolus was given. Blood pressure has improved. We will increase intravenous fluid. Continue to monitor for congestion. Continue other medications at this time. Continue antibiotics and follow cultures. Troponin is trending down. Continue supportive care.
[2016-10-03] MEDS ORDERED: NORMAL SALINE 1000 ML 1,000 ML IV PRN ×2 (09:01→17:13)
[2016-10-03] MEDS: FLUOXETINE HCL 20 MG CAPSULE PO SCH (09:02)
[2016-10-03] MEDS: DOCUSATE SODIUM 100 MG CAPSULE PO SCH ×2 (09:02→18:23)
[2016-10-03] MEDS: FINASTERIDE 5 MG TABLET PO SCH (09:02)
[2016-10-03] MEDS: ASPIRIN 81 MG TABLET, CHEWABLE PO SCH (09:02)
[2016-10-03] MEDS: RANOLAZINE 500 MG TAB.SR.12H PO SCH (09:02)
[2016-10-03] MEDS: CLOPIDOGREL BISULFATE 75 MG TABLET PO SCH (09:02)
[2016-10-03] MEDS: LEVOFLOXACIN 750 MG/D5W RTU 750 MG/150 ML RTUPB IV SCH (09:03)
[2016-10-03] MEDS: CEFEPIME HCL 2 GM in DEXTROSE 5%-WATER 50 ML IV SCH ×2 (10:35→22:47)
--- NOTE | 2016-10-03 11:14 | EKG REPORT ---
SEVERITY:- ABNORMAL ECG - SINUS RHYTHM IVCD RIGHT BUNDLE BRANCH BLOCK DIFFUSE NONSPECIFIC ST-T CHANGES. LOW VOLTAGE EKG : Confirmed by: Pedrito Jefferson MD 03-Oct-2016 11:13:24
--- NOTE | 2016-10-03 15:25 | PDOC PROGRESS REPORT ---
Subjective Progress Note for:: 10/03/16 Subjective:: Patient seems to be doing better with marked improvement. Pt is denying any chest arm or neck discomfort. Patient denying any PND, orthopnea. Patient denied any sustained palpitations, dizziness, syncope, near syncope. Patient denying any fever chills. Patient denying any other significant discomfort. Patient is maintaining sinus rhythm. Review of systems: Rest review of systems negative. Medications: Medications have been reviewed. Physical Exam Vital Signs: Temp Pulse Resp BP Pulse Ox 97.2 F 88 16 90/59 L 95 10/03/16 11:36 10/03/16 11:58 10/03/16 11:58 10/03/16 11:36 10/03/16 11:58 Intake & Output 10/02/16 10/03/16 10/04/16 06:59 06:59 06:59 Intake Total 2030 Balance 2030 Weight 68.5 kg Exam: GENERAL: well-nourished and in no acute distress. Alert and oriented x3 HEAD: Atraumatic, normocephalic. EYES: Pupils equal round and reactive to light, extraocular movements intact, sclera anicteric, conjunctiva are normal. ENT: TMs normal, nares patent, oropharynx clear without exudates. Moist mucous membranes. No oral ulcerations or bleeding gums noted NECK: supple without lymphadenopathy. Trachea is central. No cervical or axillary lymphadenopathy noted. Carotids are 2+, JVD WNL LUNGS: Respiration seems nonlabored, no significant accessory muscle action noted. Bilateral basal fine crackles and few bibasal wheezes rales or rhonchi noted. No significant dullness noted on percussion. CHEST: Palpation of the chest wall shows no significant chest wall tenderness. No other significant abnormalities noted. 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 ABDOMEN: Soft, no significant tenderness appreciated, normoactive bowel sounds. No guarding, no rebound. No rigidity noted . No masses appreciated. EXTREMITIES: Pedal pulses are 1-2+, no calf tenderness noted. No clubbing or cyanosis.trace to 1+ pedal edema noted NEUROLOGICAL: Focused neurological exam showed no significant neurologic deficit. Normal speech, no focal weakness appreciated. PSYCH: Normal mood, normal affect. Judgment and insight within normal limits. SKIN: No significant ecchymosis, rash, ulcerations or signs of pruritus noted. MUSCULOSKELETAL EXAM: No significant joint swelling noted. Results Laboratory Results: 10/03/16 02:18 10/03/16 02:18 10/03/16 10/03/16 02:18 02:18 WBC 8.9 RBC 4.04 L Hgb 10.2 L Hct 32.6 L MCV 81 MCH 25.2 L MCHC 31.2 L RDW 17.4 H Plt Count 330 Seg Neutrophils % 78.9 H Lymphocytes % 10.4 L Monocytes % 8.7 Eosinophils % 1.4 Basophils % 0.6 Absolute Neutrophils 7.0 Absolute Lymphocytes 0.9 Absolute Monocytes 0.8 Absolute Eosinophils 0.1 Absolute Basophils 0.1 Sodium 134.0 L Potassium 4.8 Chloride 103 Carbon Dioxide 23 Anion Gap 8 BUN 21 H Creatinine 1.25 Est GFR ( Amer) > 60 Est GFR (Non-Af Amer) 55 L Glucose 132 H Calcium 8.2 L 10/02/16 10/02/16 10/02/16 11:59 11:59 11:59 Creatine Kinase 30 L CK-MB (CK-2) 3.63 Troponin I 0.443 NT-Pro-B Natriuret Pep 2280 H 10/02/16 10/02/16 10/02/16 16:41 16:41 20:25 Creatine Kinase 38 L 34 L CK-MB (CK-2) 3.41 Troponin I 0.369 NT-Pro-B Natriuret Pep 10/02/16 10/03/16 20:25 02:18 Creatine Kinase CK-MB (CK-2) 3.25 Troponin I 0.302 0.261 NT-Pro-B Natriuret Pep EKG Comments: Sinus rhythm with APCs, right bundle branch block pattern Impressions: Acute Abdomen Series 10/02/16 03:09 IMPRESSION: NO RADIOGRAPHIC EVIDENCE FOR ACUTE ABDOMINAL DISEASE. MODERATE FECAL RETENTION MOST NOTABLY WITHIN THE RECTAL VAULT. CORRELATE WITH PHYSICAL EXAM FOR EVIDENCE OF FECAL IMPACTION. Chest/Abdomen CTA 10/02/16 05:21 IMPRESSION: 1. No acute pulmonary embolus identified. 2. There is aneurysmal dilatation of the ascending and descending thoracic aorta as above. No dilated bronchial artery is identified to suggest bronchial artery hemorrhage. 3. There is bronchiectatic changes noted throughout the lungs, similar to prior studies most prominent in both lower lobes. There is scarring seen throughout the the lungs most notably in the dependent portions. There is some tree-in- bud and ground-glass opacities seen in the right upper lobe which could represent an area of infection/ inflammation. There is extensive centrilobular emphysematous disease noted throughout. 4. Mediastinal adenopathy with the largest lymph nodes measuring approximate 1.2 cm in AP dimension these could represent reactive adenopathy versus metastatic lymph nodes, reactive adenopathy is favored as there is no evidence of malignancy on this study. Assessment & Plan - Diagnosis (1) Elevated troponin Is this a current diagnosis for this admission?: Yes (2) Bronchiectasis Qualifiers: Bronchiectasis type: with acute lower respiratory infection Qualified Code(s): J47.0 - Bronchiectasis with acute lower respiratory infection Is this a current diagnosis for this admission?: Yes (3) COPD exacerbation Is this a current diagnosis for this admission?: Yes (4) Thoracic aortic aneurysm Qualifiers: Presence of rupture: without rupture Qualified Code(s): I71.2 - Thoracic aortic aneurysm, without rupture Is this a current diagnosis for this admission?: Yes (5) Pneumonia Qualifiers: Laterality: right Lung location: upper lobe of lung Is this a current diagnosis for this admission?: Yes (6) Non-STEMI (non-ST elevated myocardial infarction) Is this a current diagnosis for this admission?: Yes (7) Respiratory failure Qualifiers: Chronicity: acute on chronic Respiratory failure complication: hypoxia Qualified Code(s): J96.21 - Acute and chronic respiratory failure with hypoxia Is this a current diagnosis for this admission?: Yes - Notes Notes: Elevated troponin I: Patient has been noted to have elevated troponin I. This is felt to be in the significant range. Most likely related to type II myocardial infarction and non-STEMI related to supply demand mismatch. This could be from hypoxemia, possible sepsis, tachycardia related etc. 2-D echo shows depressed LVEF. Will add very tiny doses of beta cedric, Toprol-XL may be preferred in view of COPD. This will be done once blood pressure is more stable. Non-STEMI: Related to supply demand mismatch. Cannot rule out acute coronary syndrome in an elderly patient. Will repeat an EKG in a.m. Added Ranexa, which patient seems to tolerate well. Bronchiectasis: Continue with antibiotic therapy. COPD exacerbation: Maintain oxygenation and ventilation. Currently patient just in mild respiratory distress. Continue bronchodilator therapy. Respiratory failure: Acute on chronic predominantly hypoxemic but cannot rule out both hypoxemic and hypercapnic. Currently on oxygen therapy continue with it. Thoracic artery aneurysm: Currently is small in size. Observe. Recommend good control of blood pressure. Pneumonia: Right upper lobe noted on CT scan. Continue antibiotic therapy. - Time Time with patient: Greater than 35 minutes - CODE STATUS : was discussed, patient remains DO NOT RESUSCITATE. Surrogate decision-maker unchanged. Multiple medical problems were addressed.More than 50% of the time spent coordinating care, discussing management plans with involved caregivers. Management plans discussed with involved personnels. Medical decision making was of moderate to high complexity.
[2016-10-03] MEDS ORDERED: FUROSEMIDE INJ/PF 20 MG/2 ML SDV IV ONE (17:13)
[2016-10-03] MEDS ORDERED: FUROSEMIDE INJ/PF 40 MG/4 ML SDV ONE (17:55)
[2016-10-03 18:11] LABS: ARTERIAL BLOOD BASE EXCESS -9.4 mmol/L; ARTERIAL BLOOD O2 SATURATION 86.8 % (94-98)
[2016-10-03] MEDS ORDERED: FUROSEMIDE INJ/PF 40 MG/4 ML SDV IV ONE (18:15)
[2016-10-03] MEDS ORDERED: HYDROCODONE BIT/HOMATROPINE SYRUP 5 ML UDCUP PO SCH (22:00)
[2016-10-03] MEDS: INSULIN GLARGINE,HUM.REC.ANLOG 300 UNIT/3 ML INSULN.PEN SUBCUT SCH (22:48)
[2016-10-04] MEDS: IPRATROPIUM BROMIDE 0.02% NEB 0.5 MG/2.5 ML AMPUL NEB SCH ×7 (00:43→23:39)
[2016-10-04] MEDS: LEVALBUTEROL HCL NEB 1.25 MG/3 ML AMPUL NEB SCH ×7 (00:44→23:39)
[2016-10-04] MEDS: MIRTAZAPINE 15 MG TABLET PO SCH ×2 (01:37→21:38)
[2016-10-04] MEDS: RANOLAZINE 500 MG TAB.SR.12H PO SCH ×3 (01:37→21:38)
[2016-10-04 05:01] LABS: HEMATOCRIT 30.4 % (37.9-51.0); HEMOGLOBIN 9.6 g/dL (13.5-17.0); HGB HCT DIFFERENCE -1.6; MEAN CORPUSCULAR HEMOGLOBIN 25.5 pg (27.0-33.4); MEAN CORPUSCULAR HGB CONC 31.5 g/dL (32.0-36.0); MEAN CORPUSCULAR VOLUME 81 fl (80-97); RED BLOOD COUNT 3.75 10^6/uL (4.35-5.55); RED CELL DISTRIBUTION WIDTH 17.2 % (11.5-14.0); WHITE BLOOD COUNT 15.9 10^3/uL (4.0-10.5)
[2016-10-04] MEDS: LANSOPRAZOLE 30 MG TAB.RAP.DR PO SCH (06:27)
[2016-10-04] MEDS: FLUTICASONE/SALMETEROL DISKUS 250-50 MCG/DOSE IH SCH ×2 (06:27→17:32)
--- NOTE | 2016-10-04 08:30 | EKG REPORT ---
SEVERITY:- ABNORMAL ECG - SINUS TACHYCARDIA RIGHT BUNDLE BRANCH BLOCK APCs : Confirmed by: Archana Mathew 04-Oct-2016 08:29:25
--- NOTE | 2016-10-04 09:12 | PDOC PROGRESS REPORT ---
Subjective Progress Note for:: 10/04/16 Subjective:: The patient had significant episode of hemoptysis yesterday. His DVT prophylaxis with Lovenox was discontinued and has to change to SCDs and BEATRIS hose. His oxygen saturation is been good on nasal cannula oxygen however he developed alteration in mental status where ABG showed hypercarbia. He was placed on BiPAP. He is more awake and alert today. No more hemoptysis. Denies any chills or fever. Patient states he feels better in breathes better with the BiPAP. No diarrhea, nausea or vomiting. Physical Exam Vital Signs: Temp Pulse Resp BP Pulse Ox 97.5 F 87 20 91/57 L 100 10/04/16 07:39 10/04/16 07:56 10/04/16 07:56 10/04/16 07:39 10/04/16 07:56 Intake & Output 10/03/16 10/04/16 10/05/16 06:59 06:59 06:59 Intake Total 2030 1940 Balance 2030 1940 Weight 68.5 kg 71.3 kg General appearance: PRESENT: no acute distress, cooperative, other - On BiPAP Head exam: PRESENT: normocephalic Eye exam: PRESENT: EOMI Mouth exam: PRESENT: moist, neck supple Neck exam: ABSENT: JVD Respiratory exam: PRESENT: decreased breath sounds, rhonchi - Minimal bilateral. ABSENT: wheezes Cardiovascular exam: PRESENT: RRR. ABSENT: gallop GI/Abdominal exam: PRESENT: soft. ABSENT: distended, tenderness Extremities exam: ABSENT: pedal edema Neurological exam: PRESENT: alert, awake Skin exam: PRESENT: dry, warm. ABSENT: cyanosis Results Laboratory Results: 10/04/16 04:04 10/03/16 02:18 10/03/16 10/04/16 17:55 04:04 WBC 15.9 H RBC 3.75 L Hgb 9.6 L Hct 30.4 L MCV 81 MCH 25.5 L MCHC 31.5 L RDW 17.2 H Plt Count 358 Carbonic Acid 2.70 H HCO3/H2CO3 Ratio 8:1 ABG pH 7.02 L* ABG pCO2 89.7 H* ABG pO2 76.9 L ABG HCO3 22.6 ABG O2 Saturation 86.8 L ABG Base Excess -9.4 FiO2 4L 10/02/16 15:10 Nasophary (Mrsa Only) MRSA Surveillance Culture - Final NO MRSA RECOVERED 10/02/16 10/02/16 10/02/16 11:59 11:59 11:59 Creatine Kinase 30 L CK-MB (CK-2) 3.63 Troponin I 0.443 NT-Pro-B Natriuret Pep 2280 H 10/02/16 10/02/16 10/02/16 16:41 16:41 20:25 Creatine Kinase 38 L 34 L CK-MB (CK-2) 3.41 Troponin I 0.369 NT-Pro-B Natriuret Pep 10/02/16 10/03/16 20:25 02:18 Creatine Kinase CK-MB (CK-2) 3.25 Troponin I 0.302 0.261 NT-Pro-B Natriuret Pep Impressions: Acute Abdomen Series 10/02/16 03:09 IMPRESSION: NO RADIOGRAPHIC EVIDENCE FOR ACUTE ABDOMINAL DISEASE. MODERATE FECAL RETENTION MOST NOTABLY WITHIN THE RECTAL VAULT. CORRELATE WITH PHYSICAL EXAM FOR EVIDENCE OF FECAL IMPACTION. Chest/Abdomen CTA 10/02/16 05:21 IMPRESSION: 1. No acute pulmonary embolus identified. 2. There is aneurysmal dilatation of the ascending and descending thoracic aorta as above. No dilated bronchial artery is identified to suggest bronchial artery hemorrhage. 3. There is bronchiectatic changes noted throughout the lungs, similar to prior studies most prominent in both lower lobes. There is scarring seen throughout the the lungs most notably in the dependent portions. There is some tree-in- bud and ground-glass opacities seen in the right upper lobe which could represent an area of infection/ inflammation. There is extensive centrilobular emphysematous disease noted throughout. 4. Mediastinal adenopathy with the largest lymph nodes measuring approximate 1.2 cm in AP dimension these could represent reactive adenopathy versus metastatic lymph nodes, reactive adenopathy is favored as there is no evidence of malignancy on this study. Chest X-Ray 10/03/16 00:00 IMPRESSION: Findings suggestive of COPD with chronic interstitial changes, similar to prior studies. There is a new opacity noted in the left retrocardiac region likely representing atelectasis, edema, infiltrate, or aspiration. Atelectasis, edema, or aspiration are more favored given the rapid development of this area compared to prior CT from 10/02/2016. Previously noted opacity in the right lung apex comm well seen on today's study and may have resolved. Assessment & Plan - Diagnosis (2) Pneumonia Qualifiers: Pneumonia type: due to unspecified organism Laterality: right Lung location: upper lobe of lung Qualified Code(s): J18.1 - Lobar pneumonia, unspecified organism Is this a current diagnosis for this admission?: Yes (3) Bronchiectasis Qualifiers: Bronchiectasis type: with acute lower respiratory infection Qualified Code(s): J47.0 - Bronchiectasis with acute lower respiratory infection Is this a current diagnosis for this admission?: Yes (4) COPD exacerbation Is this a current diagnosis for this admission?: Yes (5) Hyponatremia Is this a current diagnosis for this admission?: Yes (6) Hyperkalemia Is this a current diagnosis for this admission?: Yes (7) Elevated troponin Is this a current diagnosis for this admission?: Yes (8) Constipation Qualifiers: Constipation type: unspecified constipation type Qualified Code(s): K59.00 - Constipation, unspecified Is this a current diagnosis for this admission?: Yes (9) Thoracic aortic aneurysm Qualifiers: Presence of rupture: without rupture Qualified Code(s): I71.2 - Thoracic aortic aneurysm, without rupture Is this a current diagnosis for this admission?: Yes (10) Hypertension Qualifiers: Hypertension type: essential hypertension Qualified Code(s): I10 - Essential (primary) hypertension Is this a current diagnosis for this admission?: Yes (11) Coronary artery disease Qualifiers: Coronary Disease-Associated Artery/Lesion type: [place] artery [place] vs. transplanted heart: [place] heart Associated angina: without angina Qualified Code(s): I25.10 - Atherosclerotic heart disease of [place] coronary artery without angina pectoris Is this a current diagnosis for this admission?: Yes (12) Type 2 diabetes mellitus with hyperglycemia Qualifiers: Diabetes mellitus skilled nursing insulin use: with skilled nursing use Qualified Code(s): E11.65 - Type 2 diabetes mellitus with hyperglycemia Is this a current diagnosis for this admission?: Yes (13) BPH (benign prostatic hyperplasia) Qualifiers: Prostatic enlargement morphology: unspecified morphology Lower urinary tract symptom presence: presence of symptoms unspecified Qualified Code(s ): N40.0 - Benign prostatic hyperplasia without lower urinary tract symptoms Is this a current diagnosis for this admission?: Yes (14) Chronic back pain Qualifiers: Back pain location: back pain in unspecified location Back pain laterality: unspecified Qualified Code(s): M54.9 - Dorsalgia, unspecified ; G89.29 - Other chronic pain Is this a current diagnosis for this admission?: Yes - Time Time Spent with patient: 25-34 minutes - Plan Summary Plan Summary: Continue BiPAP for respiratory support. Continue to monitor hematocrit. We will add clindamycin to treatment regimen. Continue steroids and nebulizers. Follow cultures. The patient's result on blood culture likely a contaminant. Continue supportive care.
[2016-10-04] MEDS: POLYETHYLENE GLYCOL 3350 POWDER 17 GM/1 PACKET PO SCH (09:22)
[2016-10-04] MEDS: FLUOXETINE HCL 20 MG CAPSULE PO SCH (09:22)
[2016-10-04] MEDS: LEVOFLOXACIN 750 MG/D5W RTU 750 MG/150 ML RTUPB IV SCH (09:23)
[2016-10-04] MEDS: DOCUSATE SODIUM 100 MG CAPSULE PO SCH ×2 (09:23→17:31)
[2016-10-04] MEDS: FINASTERIDE 5 MG TABLET PO SCH (09:23)
[2016-10-04] MEDS: CEFEPIME HCL 2 GM in DEXTROSE 5%-WATER 50 ML IV SCH ×2 (09:24→21:39)
[2016-10-04] MEDS ORDERED: HYDROCODONE BIT/HOMATROPINE 5-1.5 MG TABLET PO ONE (11:15)
[2016-10-04] MEDS: CLINDAMYCIN 600 MG/D5W RTU 50 ML IV SCH ×2 (13:25→22:35)
[2016-10-04] MEDS: INSULIN REG, HUMAN 100 UNIT/ML 3 ML VIAL (PYX) SUBCUT PRN (17:36)
--- NOTE | 2016-10-04 18:56 | PDOC PROGRESS REPORT ---
Subjective Progress Note for:: 10/04/16 Subjective:: Patient seems to be doing overall better but had a setback last night with hemoptysis. Patient was on bilevel therapy last night and this morning. Pt is denying any chest arm or neck discomfort. Patient denying any PND, orthopnea. Patient denied any sustained palpitations, dizziness, syncope, near syncope. Patient denying any fever chills. Patient denying any other significant discomfort. Patient is maintaining sinus rhythm. Review of systems: Rest review of systems negative. Medications: Medications have been reviewed. Physical Exam Vital Signs: Temp Pulse Resp BP Pulse Ox 97.2 F 63 18 91/56 L 100 10/04/16 15:18 10/04/16 15:56 10/04/16 15:56 10/04/16 15:18 10/04/16 15:56 Intake & Output 10/03/16 10/04/16 10/05/16 06:59 06:59 06:59 Intake Total 2030 1940 1243 Output Total 400 Balance 2030 1940 843 Weight 68.5 kg 71.3 kg Exam: GENERAL: well-nourished and in no acute distress. Alert and oriented x3 HEAD: Atraumatic, normocephalic. EYES: Pupils equal round and reactive to light, extraocular movements intact, sclera anicteric, conjunctiva are normal. ENT: TMs normal, nares patent, oropharynx clear without exudates. Moist mucous membranes. No oral ulcerations or bleeding gums noted NECK: supple without lymphadenopathy. Trachea is central. No cervical or axillary lymphadenopathy noted. Carotids are 2+, JVD WNL LUNGS: Respiration seems nonlabored, no significant accessory muscle action noted. Bilateral coarse crackles noted both bases with few bilateral wheezing. No dullness noted CHEST: Palpation of the chest wall shows no significant chest wall tenderness. No other significant abnormalities noted. 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 ABDOMEN: Soft, no significant tenderness appreciated, normoactive bowel sounds. No guarding, no rebound. No rigidity noted . No masses appreciated. EXTREMITIES: Pedal pulses are 1-2+, no calf tenderness noted. No clubbing or cyanosis.trace to 1+ pedal edema noted NEUROLOGICAL: Focused neurological exam showed no significant neurologic deficit. Normal speech, no focal weakness appreciated. PSYCH: Normal mood, normal affect. Judgment and insight within normal limits. SKIN: No significant ecchymosis, rash, ulcerations or signs of pruritus noted. MUSCULOSKELETAL EXAM: No significant joint swelling noted. Results Laboratory Results: 10/04/16 04:04 10/03/16 02:18 10/04/16 04:04 WBC 15.9 H RBC 3.75 L Hgb 9.6 L Hct 30.4 L MCV 81 MCH 25.5 L MCHC 31.5 L RDW 17.2 H Plt Count 358 10/02/16 15:10 Nasophary (Mrsa Only) MRSA Surveillance Culture - Final NO MRSA RECOVERED 10/02/16 10/02/16 10/02/16 11:59 11:59 11:59 Creatine Kinase 30 L CK-MB (CK-2) 3.63 Troponin I 0.443 NT-Pro-B Natriuret Pep 2280 H 10/02/16 10/02/16 10/02/16 16:41 16:41 20:25 Creatine Kinase 38 L 34 L CK-MB (CK-2) 3.41 Troponin I 0.369 NT-Pro-B Natriuret Pep 10/02/16 10/03/16 20:25 02:18 Creatine Kinase CK-MB (CK-2) 3.25 Troponin I 0.302 0.261 NT-Pro-B Natriuret Pep Impressions: Acute Abdomen Series 10/02/16 03:09 IMPRESSION: NO RADIOGRAPHIC EVIDENCE FOR ACUTE ABDOMINAL DISEASE. MODERATE FECAL RETENTION MOST NOTABLY WITHIN THE RECTAL VAULT. CORRELATE WITH PHYSICAL EXAM FOR EVIDENCE OF FECAL IMPACTION. Chest/Abdomen CTA 10/02/16 05:21 IMPRESSION: 1. No acute pulmonary embolus identified. 2. There is aneurysmal dilatation of the ascending and descending thoracic aorta as above. No dilated bronchial artery is identified to suggest bronchial artery hemorrhage. 3. There is bronchiectatic changes noted throughout the lungs, similar to prior studies most prominent in both lower lobes. There is scarring seen throughout the the lungs most notably in the dependent portions. There is some tree-in- bud and ground-glass opacities seen in the right upper lobe which could represent an area of infection/ inflammation. There is extensive centrilobular emphysematous disease noted throughout. 4. Mediastinal adenopathy with the largest lymph nodes measuring approximate 1.2 cm in AP dimension these could represent reactive adenopathy versus metastatic lymph nodes, reactive adenopathy is favored as there is no evidence of malignancy on this study. Chest X-Ray 10/03/16 00:00 IMPRESSION: Findings suggestive of COPD with chronic interstitial changes, similar to prior studies. There is a new opacity noted in the left retrocardiac region likely representing atelectasis, edema, infiltrate, or aspiration. Atelectasis, edema, or aspiration are more favored given the rapid development of this area compared to prior CT from 10/02/2016. Previously noted opacity in the right lung apex comm well seen on today's study and may have resolved. Assessment & Plan - Diagnosis (1) Elevated troponin Is this a current diagnosis for this admission?: Yes (2) Bronchiectasis Qualifiers: Bronchiectasis type: with acute lower respiratory infection Qualified Code(s): J47.0 - Bronchiectasis with acute lower respiratory infection Is this a current diagnosis for this admission?: Yes (3) COPD exacerbation Is this a current diagnosis for this admission?: Yes (4) Thoracic aortic aneurysm Qualifiers: Presence of rupture: without rupture Qualified Code(s): I71.2 - Thoracic aortic aneurysm, without rupture Is this a current diagnosis for this admission?: Yes (5) Pneumonia Qualifiers: Laterality: right Lung location: upper lobe of lung Is this a current diagnosis for this admission?: Yes (6) Non-STEMI (non-ST elevated myocardial infarction) Is this a current diagnosis for this admission?: Yes (7) Respiratory failure Qualifiers: Chronicity: acute on chronic Respiratory failure complication: hypoxia Qualified Code(s): J96.21 - Acute and chronic respiratory failure with hypoxia Is this a current diagnosis for this admission?: Yes - Notes Notes: Elevated troponin I: Patient has been noted to have elevated troponin I. This is felt to be in the significant range. Most likely related to type II myocardial infarction and non-STEMI related to supply demand mismatch. This could be from hypoxemia, possible sepsis, tachycardia related etc. 2-D echo shows depressed LVEF. Will add very tiny doses of beta cedric, Toprol-XL may be preferred in view of COPD. This will be done once blood pressure is more stable. Non-STEMI: Related to supply demand mismatch. Cannot rule out acute coronary syndrome in an elderly patient. Will repeat an EKG in a.m. Added Ranexa, which patient seems to tolerate well. We'll repeat an EKG in the morning to look for any evolving changes. Bronchiectasis: Continue with antibiotic therapy. COPD exacerbation: Maintain oxygenation and ventilation. Currently patient no respiratory distress. Continue bronchodilator therapy. Respiratory failure: Acute on chronic predominantly hypoxemic but cannot rule out both hypoxemic and hypercapnic. Currently on oxygen therapy continue with it. Thoracic artery aneurysm: Currently is small in size. Observe. Recommend good control of blood pressure. Pneumonia: Right upper lobe noted on CT scan. Continue antibiotic therapy. Hemoptysis: Most likely related to pneumonia and or bronchiectasis. - Time Time with patient: 15-25 minutes - CODE STATUS : was discussed, patient remains DO NOT RESUSCITATE. Surrogate decision-maker unchanged. Multiple medical problems were addressed.More than 50% of the time spent coordinating care, discussing management plans with involved caregivers. Management plans discussed with involved personnels. Medical decision making was of moderate complexity.
[2016-10-04] MEDS: HYDROCODONE BIT/HOMATROPINE 5-1.5 MG TABLET PO SCH (21:38)
[2016-10-04] MEDS: INSULIN GLARGINE,HUM.REC.ANLOG 300 UNIT/3 ML INSULN.PEN SUBCUT SCH (21:40)
[2016-10-05] MEDS: LEVALBUTEROL HCL NEB 1.25 MG/3 ML AMPUL NEB SCH ×6 (04:37→23:34)
[2016-10-05] MEDS: IPRATROPIUM BROMIDE 0.02% NEB 0.5 MG/2.5 ML AMPUL NEB SCH ×6 (04:37→23:35)
[2016-10-05] MEDS: LANSOPRAZOLE 30 MG TAB.RAP.DR PO SCH (06:01)
[2016-10-05] MEDS: CLINDAMYCIN 600 MG/D5W RTU 50 ML IV SCH ×3 (06:01→23:38)
[2016-10-05] MEDS: FLUTICASONE/SALMETEROL DISKUS 250-50 MCG/DOSE IH SCH ×2 (06:01→17:12)
--- NOTE | 2016-10-05 09:07 | PDOC PROGRESS REPORT ---
Subjective Progress Note for:: 10/05/16 Subjective:: More awake and alert today. Off the BiPAP. Patient engaging in conversation. States he feels a lot better this morning. There is no nausea or vomiting. Denies any diarrhea. He developed hypoglycemia however. No temperature spikes reported. No more hemoptysis. Physical Exam Vital Signs: Temp Pulse Resp BP Pulse Ox 97.2 F 87 18 90/56 L 100 10/05/16 07:20 10/05/16 08:21 10/05/16 08:21 10/05/16 07:20 10/05/16 08:21 Intake & Output 10/04/16 10/05/16 10/06/16 06:59 06:59 06:59 Intake Total 1940 1982 Output Total 775 Balance 1940 1208 Weight 71.3 kg 72.3 kg General appearance: PRESENT: no acute distress, cooperative, thin, other - On nasal cannula oxygen Head exam: PRESENT: normocephalic Eye exam: PRESENT: EOMI Mouth exam: PRESENT: moist, neck supple Neck exam: ABSENT: JVD Respiratory exam: PRESENT: decreased breath sounds. ABSENT: rhonchi, wheezes Cardiovascular exam: PRESENT: RRR. ABSENT: gallop GI/Abdominal exam: PRESENT: normal bowel sounds, soft. ABSENT: distended, tenderness Extremities exam: ABSENT: pedal edema Neurological exam: PRESENT: alert, awake, oriented to situation Skin exam: PRESENT: dry, warm. ABSENT: cyanosis Results Laboratory Results: 10/04/16 04:04 10/03/16 02:18 10/02/16 15:10 Nasophary ([facility] Only) MRSA Surveillance Culture - Final NO MRSA RECOVERED 10/02/16 10/02/16 10/02/16 11:59 11:59 11:59 Creatine Kinase 30 L CK-MB (CK-2) 3.63 Troponin I 0.443 NT-Pro-B Natriuret Pep 2280 H 10/02/16 10/02/16 10/02/16 16:41 16:41 20:25 Creatine Kinase 38 L 34 L CK-MB (CK-2) 3.41 Troponin I 0.369 NT-Pro-B Natriuret Pep 10/02/16 10/03/16 20:25 02:18 Creatine Kinase CK-MB (CK-2) 3.25 Troponin I 0.302 0.261 NT-Pro-B Natriuret Pep Impressions: Acute Abdomen Series 10/02/16 03:09 IMPRESSION: NO RADIOGRAPHIC EVIDENCE FOR ACUTE ABDOMINAL DISEASE. MODERATE FECAL RETENTION MOST NOTABLY WITHIN THE RECTAL VAULT. CORRELATE WITH PHYSICAL EXAM FOR EVIDENCE OF FECAL IMPACTION. Chest/Abdomen CTA 10/02/16 05:21 IMPRESSION: 1. No acute pulmonary embolus identified. 2. There is aneurysmal dilatation of the ascending and descending thoracic aorta as above. No dilated bronchial artery is identified to suggest bronchial artery hemorrhage. 3. There is bronchiectatic changes noted throughout the lungs, similar to prior studies most prominent in both lower lobes. There is scarring seen throughout the the lungs most notably in the dependent portions. There is some tree-in- bud and ground-glass opacities seen in the right upper lobe which could represent an area of infection/ inflammation. There is extensive centrilobular emphysematous disease noted throughout. 4. Mediastinal adenopathy with the largest lymph nodes measuring approximate 1.2 cm in AP dimension these could represent reactive adenopathy versus metastatic lymph nodes, reactive adenopathy is favored as there is no evidence of malignancy on this study. Chest X-Ray 10/03/16 00:00 IMPRESSION: Findings suggestive of COPD with chronic interstitial changes, similar to prior studies. There is a new opacity noted in the left retrocardiac region likely representing atelectasis, edema, infiltrate, or aspiration. Atelectasis, edema, or aspiration are more favored given the rapid development of this area compared to prior CT from 10/02/2016. Previously noted opacity in the right lung apex comm well seen on today's study and may have resolved. Assessment & Plan - Diagnosis (2) Pneumonia Qualifiers: Pneumonia type: due to unspecified organism Laterality: right Lung location: upper lobe of lung Qualified Code(s): J18.1 - Lobar pneumonia, unspecified organism Is this a current diagnosis for this admission?: Yes (3) Bronchiectasis Qualifiers: Bronchiectasis type: with acute lower respiratory infection Qualified Code(s): J47.0 - Bronchiectasis with acute lower respiratory infection Is this a current diagnosis for this admission?: Yes (4) Aspiration into airway Qualifiers: Encounter type: initial encounter Qualified Code(s): T17.908A - Unspecified foreign body in respiratory tract, part unspecified causing other injury, initial encounter Is this a current diagnosis for this admission?: Yes (5) COPD exacerbation Is this a current diagnosis for this admission?: Yes (6) Hyponatremia Is this a current diagnosis for this admission?: Yes (7) Hyperkalemia Is this a current diagnosis for this admission?: Yes (8) Elevated troponin Is this a current diagnosis for this admission?: Yes (9) Constipation Qualifiers: Constipation type: unspecified constipation type Qualified Code(s): K59.00 - Constipation, unspecified Is this a current diagnosis for this admission?: Yes (10) Thoracic aortic aneurysm Qualifiers: Presence of rupture: without rupture Qualified Code(s): I71.2 - Thoracic aortic aneurysm, without rupture Is this a current diagnosis for this admission?: Yes (11) Hypertension Qualifiers: Hypertension type: essential hypertension Qualified Code(s): I10 - Essential (primary) hypertension Is this a current diagnosis for this admission?: Yes (12) Coronary artery disease Qualifiers: Coronary Disease-Associated Artery/Lesion type: [place] artery [place] vs. transplanted heart: [place] heart Associated angina: without angina Qualified Code(s): I25.10 - Atherosclerotic heart disease of [place] coronary artery without angina pectoris Is this a current diagnosis for this admission?: Yes (13) Type 2 diabetes mellitus with hyperglycemia Qualifiers: Diabetes mellitus superintendent container terminal insulin use: with superintendent container terminal use Qualified Code(s): E11.65 - Type 2 diabetes mellitus with hyperglycemia Is this a current diagnosis for this admission?: Yes (14) BPH (benign prostatic hyperplasia) Qualifiers: Prostatic enlargement morphology: unspecified morphology Lower urinary tract symptom presence: presence of symptoms unspecified Qualified Code(s ): N40.0 - Benign prostatic hyperplasia without lower urinary tract symptoms Is this a current diagnosis for this admission?: Yes (15) Chronic back pain Qualifiers: Back pain location: back pain in unspecified location Back pain laterality: unspecified Qualified Code(s): M54.9 - Dorsalgia, unspecified ; G89.29 - Other chronic pain Is this a current diagnosis for this admission?: Yes - Time Time Spent with patient: 25-34 minutes - Plan Summary Plan Summary: Continue steroids and current antibiotics for now. Follow cultures. Discontinue the patient's insulin and just put him on sliding scale. Continue supportive care for now. Monitor WBC, hematocrit, and creatinine.
[2016-10-05] MEDS: POLYETHYLENE GLYCOL 3350 POWDER 17 GM/1 PACKET PO SCH (10:10)
[2016-10-05] MEDS: CEFEPIME HCL 2 GM in DEXTROSE 5%-WATER 50 ML IV SCH ×2 (10:10→22:21)
[2016-10-05] MEDS: LEVOFLOXACIN 750 MG/D5W RTU 750 MG/150 ML RTUPB IV SCH (10:11)
[2016-10-05] MEDS: DOCUSATE SODIUM 100 MG CAPSULE PO SCH ×2 (10:12→17:12)
[2016-10-05] MEDS: FLUOXETINE HCL 20 MG CAPSULE PO SCH (10:12)
[2016-10-05] MEDS: FINASTERIDE 5 MG TABLET PO SCH (10:12)
[2016-10-05] MEDS: HYDROCODONE BIT/HOMATROPINE 5-1.5 MG TABLET PO SCH ×2 (10:12→22:21)
[2016-10-05] MEDS: RANOLAZINE 500 MG TAB.SR.12H PO SCH ×2 (10:13→22:21)
[2016-10-05] MEDS: MIRTAZAPINE 15 MG TABLET PO SCH (22:21)
--- NOTE | 2016-10-05 22:29 | PDOC PROGRESS REPORT ---
Subjective Progress Note for:: 10/05/16 Subjective:: Patient seems to be doing overall better but had a setback last night with hemoptysis. Patient was on bilevel therapy last night and this morning. Pt is denying any chest arm or neck discomfort. Patient denying any PND, orthopnea. Patient denied any sustained palpitations, dizziness, syncope, near syncope. Patient denying any fever chills. Patient denying any other significant discomfort. Patient is maintaining sinus rhythm. Twelve-lead EKG shows sinus rhythm with right bundle branch block pattern and APCs. Review of systems: Rest review of systems negative. Medications: Medications have been reviewed. Physical Exam Vital Signs: Temp Pulse Resp BP Pulse Ox 97.4 F 94 20 98/61 L 100 10/05/16 16:49 10/05/16 16:49 10/05/16 16:49 10/05/16 16:49 10/05/16 16:49 Intake & Output 10/04/16 10/05/16 10/06/16 06:59 06:59 06:59 Intake Total 1940 1983 1176 Output Total 775 600 Balance 1940 1208 576 Weight 71.3 kg 72.3 kg Exam: GENERAL: well-nourished and in no acute distress. Alert and oriented x3 HEAD: Atraumatic, normocephalic. EYES: Pupils equal round and reactive to light, extraocular movements intact, sclera anicteric, conjunctiva are normal. ENT: TMs normal, nares patent, oropharynx clear without exudates. Moist mucous membranes. No oral ulcerations or bleeding gums noted NECK: supple without lymphadenopathy. Trachea is central. No cervical or axillary lymphadenopathy noted. Carotids are 2+, JVD WNL LUNGS: Respiration seems nonlabored, no significant accessory muscle action noted. Breath sounds clear to auscultation bilaterally and equal noted. No wheezes rales or rhonchi noted. No significant dullness noted on percussion. CHEST: Palpation of the chest wall shows no significant chest wall tenderness. No other significant abnormalities noted. HEART: [place] SUPERVISOR MULTIFOCAL LENS, No PSH, 1/6 [place] aortic area, 1/6 [place] systolic murmur mitral area, no rubs, no gallops. ABDOMEN: Soft, no significant tenderness appreciated, normoactive bowel sounds. No guarding, no rebound. No rigidity noted . No masses appreciated. EXTREMITIES: Pedal pulses are 1-2+, no calf tenderness noted. No clubbing or cyanosis.trace to 1+ pedal edema noted NEUROLOGICAL: Focused neurological exam showed no significant neurologic deficit. Normal speech, no focal weakness appreciated. PSYCH: Normal mood, normal affect. Judgment and insight within normal limits. SKIN: No significant ecchymosis, rash, ulcerations or signs of pruritus noted. MUSCULOSKELETAL EXAM: No significant joint swelling noted. Results Laboratory Results: 10/04/16 04:04 10/03/16 02:18 10/03/16 15:20 Sputum Gram Stain - Final 10/03/16 15:20 Sputum Sputum Culture - Final C.albicans/C.dubliniensis Normal Dottie Absent 10/02/16 10/02/16 10/02/16 11:59 11:59 11:59 Creatine Kinase 30 L CK-MB (CK-2) 3.63 Troponin I 0.443 NT-Pro-B Natriuret Pep 2280 H 10/02/16 10/02/16 10/02/16 16:41 16:41 20:25 Creatine Kinase 38 L 34 L CK-MB (CK-2) 3.41 Troponin I 0.369 NT-Pro-B Natriuret Pep 10/02/16 10/03/16 20:25 02:18 Creatine Kinase CK-MB (CK-2) 3.25 Troponin I 0.302 0.261 NT-Pro-B Natriuret Pep Impressions: Acute Abdomen Series 10/02/16 03:09 IMPRESSION: NO RADIOGRAPHIC EVIDENCE FOR ACUTE ABDOMINAL DISEASE. MODERATE FECAL RETENTION MOST NOTABLY WITHIN THE RECTAL VAULT. CORRELATE WITH PHYSICAL EXAM FOR EVIDENCE OF FECAL IMPACTION. Chest/Abdomen CTA 10/02/16 05:21 IMPRESSION: 1. No acute pulmonary embolus identified. 2. There is aneurysmal dilatation of the ascending and descending thoracic aorta as above. No dilated bronchial artery is identified to suggest bronchial artery hemorrhage. 3. There is bronchiectatic changes noted throughout the lungs, similar to prior studies most prominent in both lower lobes. There is scarring seen throughout the the lungs most notably in the dependent portions. There is some tree-in- bud and ground-glass opacities seen in the right upper lobe which could represent an area of infection/ inflammation. There is extensive centrilobular emphysematous disease noted throughout. 4. Mediastinal adenopathy with the largest lymph nodes measuring approximate 1.2 cm in AP dimension these could represent reactive adenopathy versus metastatic lymph nodes, reactive adenopathy is favored as there is no evidence of malignancy on this study. Chest X-Ray 10/03/16 00:00 IMPRESSION: Findings suggestive of COPD with chronic interstitial changes, similar to prior studies. There is a new opacity noted in the left retrocardiac region likely representing atelectasis, edema, infiltrate, or aspiration. Atelectasis, edema, or aspiration are more favored given the rapid development of this area compared to prior CT from 10/02/2016. Previously noted opacity in the right lung apex comm well seen on today's study and may have resolved. Assessment & Plan - Diagnosis (1) Elevated troponin Is this a current diagnosis for this admission?: Yes (2) Bronchiectasis Qualifiers: Bronchiectasis type: with acute lower respiratory infection Qualified Code(s): J47.0 - Bronchiectasis with acute lower respiratory infection Is this a current diagnosis for this admission?: Yes (3) COPD exacerbation Is this a current diagnosis for this admission?: Yes (4) Thoracic aortic aneurysm Qualifiers: Presence of rupture: without rupture Qualified Code(s): I71.2 - Thoracic aortic aneurysm, without rupture Is this a current diagnosis for this admission?: Yes (5) Pneumonia Qualifiers: Laterality: right Lung location: upper lobe of lung Is this a current diagnosis for this admission?: Yes (6) Non-STEMI (non-ST elevated myocardial infarction) Is this a current diagnosis for this admission?: Yes (7) Respiratory failure Qualifiers: Chronicity: acute on chronic Respiratory failure complication: hypoxia Qualified Code(s): J96.21 - Acute and chronic respiratory failure with hypoxia Is this a current diagnosis for this admission?: Yes - Notes Notes: Elevated troponin I: Patient has been noted to have elevated troponin I. This is felt to be in the significant range. Most likely related to type II myocardial infarction and non-STEMI related to supply demand mismatch. Ranexa, which patient seems to tolerate well. Patient generally was stable. No need for ischemia workup as decision has been made for medical management. Patient has been stable from cardiac standpoint on current regimen. Bronchiectasis: Continue with antibiotic therapy. COPD exacerbation: Maintain oxygenation and ventilation. Currently patient no respiratory distress. Continue bronchodilator therapy. Respiratory failure: Acute on chronic predominantly hypoxemic but cannot rule out both hypoxemic and hypercapnic. Currently on oxygen therapy continue with it. Thoracic artery aneurysm: Currently is small in size. Observe. Recommend good control of blood pressure. Pneumonia: Right upper lobe noted on CT scan. Continue antibiotic therapy. Hemoptysis: Most likely related to pneumonia and or bronchiectasis. This was resolved. Continue antibiotic therapy. At this point patient has been stable from cardiac standpoint for last several days. Will therefore sign off. - Time Time with patient: 15-25 minutes - CODE STATUS : was discussed, patient remains DO NOT RESUSCITATE. Surrogate decision-maker unchanged. Multiple medical problems were addressed.More than 50% of the time spent coordinating care, discussing management plans with involved caregivers. Management plans discussed with involved personnels. Medical decision making was of moderate complexity. Medications reviewed and adjusted accordingly: Yes
--- NOTE | 2016-10-06 00:06 | EKG REPORT ---
SEVERITY:- ABNORMAL ECG - SINUS ARRHYTHMIA, RATE [id number] RIGHT BUNDLE BRANCH BLOCK : Confirmed by: Archana Mathew 06-Oct-2016 00:05:25
[2016-10-06] MEDS: LEVALBUTEROL HCL NEB 1.25 MG/3 ML AMPUL NEB SCH ×5 (04:45→19:52)
[2016-10-06] MEDS: IPRATROPIUM BROMIDE 0.02% NEB 0.5 MG/2.5 ML AMPUL NEB SCH ×5 (04:45→19:51)
[2016-10-06] MEDS: LANSOPRAZOLE 30 MG TAB.RAP.DR PO SCH (05:15)
[2016-10-06] MEDS: CLINDAMYCIN 600 MG/D5W RTU 50 ML IV SCH (05:15)
[2016-10-06] MEDS: FLUTICASONE/SALMETEROL DISKUS 250-50 MCG/DOSE IH SCH ×2 (05:16→18:39)
[2016-10-06 05:20] LABS: HEMATOCRIT 28.1 % (37.9-51.0); HEMOGLOBIN 9.1 g/dL (13.5-17.0); HGB HCT DIFFERENCE -0.8; MEAN CORPUSCULAR HEMOGLOBIN 25.7 pg (27.0-33.4); MEAN CORPUSCULAR HGB CONC 32.3 g/dL (32.0-36.0); MEAN CORPUSCULAR VOLUME 80 fl (80-97); RED BLOOD COUNT 3.53 10^6/uL (4.35-5.55); RED CELL DISTRIBUTION WIDTH 17.4 % (11.5-14.0); WHITE BLOOD COUNT 10.1 10^3/uL (4.0-10.5)
[2016-10-06 05:39] LABS: ANION GAP 9 (5-19); BLOOD UREA NITROGEN 24 mg/dL (7-20); CALCIUM 8.2 mg/dL (8.4-10.2); CARBON DIOXIDE 21 mmol/L (22-30); CHLORIDE 101 mmol/L (98-107); GLUCOSE 179 mg/dL (75-110); SODIUM 131.2 mmol/L (137-145)
--- NOTE | 2016-10-06 09:44 | PDOC PROGRESS REPORT ---
Subjective Progress Note for:: 10/06/16 Subjective:: Patient reports did not sleep well last night. Patient reportedly desaturated and oxygen increased to 4 L. Patient reports hallucinations as well. He also complains of not eating well due to food without a taste. Otherwise, no hemoptysis this time, no increasing shortness of breath, no chills or fever or diarrhea. Patient has not ambulated for years. Physical Exam Vital Signs: Temp Pulse Resp BP Pulse Ox 97.4 F 101 H 18 96/58 L 90 L 10/06/16 07:46 10/06/16 08:10 10/06/16 08:10 10/06/16 07:46 10/06/16 08:10 Intake & Output 10/05/16 10/06/16 10/07/16 06:59 06:59 06:59 Intake Total 1982 2105 Output Total 775 1900 Balance 1208 206 Weight 72.3 kg 77.3 kg General appearance: PRESENT: no acute distress, cooperative, other - Mildly somnolent Head exam: PRESENT: normocephalic Eye exam: PRESENT: EOMI Mouth exam: PRESENT: moist, neck supple Neck exam: ABSENT: JVD Respiratory exam: PRESENT: rhonchi - Scattered bilateral. ABSENT: wheezes Cardiovascular exam: PRESENT: RRR. ABSENT: gallop GI/Abdominal exam: PRESENT: hypoactive bowel sounds, soft, other - Slight tympany to percussion. ABSENT: tenderness Extremities exam: ABSENT: pedal edema Neurological exam: PRESENT: alert, awake Skin exam: PRESENT: dry, warm. ABSENT: cyanosis Results Laboratory Results: 10/06/16 04:09 10/06/16 04:09 10/06/16 10/06/16 04:09 04:09 WBC 10.1 RBC 3.53 L Hgb 9.1 L Hct 28.1 L MCV 80 MCH 25.7 L MCHC 32.3 RDW 17.4 H Plt Count 312 Sodium 131.2 L Potassium 4.0 Chloride 101 Carbon Dioxide 21 L Anion Gap 9 BUN 24 H Creatinine 1.20 Est GFR ( Amer) > 60 Est GFR (Non-Af Amer) 58 L Glucose 179 H Calcium 8.2 L 10/03/16 15:20 Sputum Gram Stain - Final 10/03/16 15:20 Sputum Sputum Culture - Final C.albicans/C.dubliniensis Normal Dottie Absent 10/02/16 10/02/16 10/02/16 11:59 11:59 11:59 Creatine Kinase 30 L CK-MB (CK-2) 3.63 Troponin I 0.443 NT-Pro-B Natriuret Pep 2280 H 10/02/16 10/02/16 10/02/16 16:41 16:41 20:25 Creatine Kinase 38 L 34 L CK-MB (CK-2) 3.41 Troponin I 0.369 NT-Pro-B Natriuret Pep 10/02/16 10/03/16 20:25 02:18 Creatine Kinase CK-MB (CK-2) 3.25 Troponin I 0.302 0.261 NT-Pro-B Natriuret Pep Impressions: Acute Abdomen Series 10/02/16 03:09 IMPRESSION: NO RADIOGRAPHIC EVIDENCE FOR ACUTE ABDOMINAL DISEASE. MODERATE FECAL RETENTION MOST NOTABLY WITHIN THE RECTAL VAULT. CORRELATE WITH PHYSICAL EXAM FOR EVIDENCE OF FECAL IMPACTION. Chest/Abdomen CTA 10/02/16 05:21 IMPRESSION: 1. No acute pulmonary embolus identified. 2. There is aneurysmal dilatation of the ascending and descending thoracic aorta as above. No dilated bronchial artery is identified to suggest bronchial artery hemorrhage. 3. There is bronchiectatic changes noted throughout the lungs, similar to prior studies most prominent in both lower lobes. There is scarring seen throughout the the lungs most notably in the dependent portions. There is some tree-in- bud and ground-glass opacities seen in the right upper lobe which could represent an area of infection/ inflammation. There is extensive centrilobular emphysematous disease noted throughout. 4. Mediastinal adenopathy with the largest lymph nodes measuring approximate 1.2 cm in AP dimension these could represent reactive adenopathy versus metastatic lymph nodes, reactive adenopathy is favored as there is no evidence of malignancy on this study. Chest X-Ray 10/03/16 00:00 IMPRESSION: Findings suggestive of COPD with chronic interstitial changes, similar to prior studies. There is a new opacity noted in the left retrocardiac region likely representing atelectasis, edema, infiltrate, or aspiration. Atelectasis, edema, or aspiration are more favored given the rapid development of this area compared to prior CT from 10/02/2016. Previously noted opacity in the right lung apex comm well seen on today's study and may have resolved. Assessment & Plan - Diagnosis (2) Pneumonia Qualifiers: Pneumonia type: due to unspecified organism Laterality: right Lung location: upper lobe of lung Qualified Code(s): J18.1 - Lobar pneumonia, unspecified organism Is this a current diagnosis for this admission?: Yes (3) Bronchiectasis Qualifiers: Bronchiectasis type: with acute lower respiratory infection Qualified Code(s): J47.0 - Bronchiectasis with acute lower respiratory infection Is this a current diagnosis for this admission?: Yes (4) Aspiration into airway Qualifiers: Encounter type: initial encounter Qualified Code(s): T17.908A - Unspecified foreign body in respiratory tract, part unspecified causing other injury, initial encounter Is this a current diagnosis for this admission?: Yes (5) COPD exacerbation Is this a current diagnosis for this admission?: Yes (6) Hyponatremia Is this a current diagnosis for this admission?: Yes (7) Hyperkalemia Is this a current diagnosis for this admission?: Yes (8) Elevated troponin Is this a current diagnosis for this admission?: Yes (9) Constipation Qualifiers: Constipation type: unspecified constipation type Qualified Code(s): K59.00 - Constipation, unspecified Is this a current diagnosis for this admission?: Yes (10) Thoracic aortic aneurysm Qualifiers: Presence of rupture: without rupture Qualified Code(s): I71.2 - Thoracic aortic aneurysm, without rupture Is this a current diagnosis for this admission?: Yes (11) Hypertension Qualifiers: Hypertension type: essential hypertension Qualified Code(s): I10 - Essential (primary) hypertension Is this a current diagnosis for this admission?: Yes (12) Coronary artery disease Qualifiers: Coronary Disease-Associated Artery/Lesion type: [place] artery [place] vs. 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 insulin use: with nursing home use Qualified Code(s): E11.65 - Type 2 diabetes mellitus with hyperglycemia Is this a current diagnosis for this admission?: Yes (14) BPH (benign prostatic hyperplasia) Qualifiers: Prostatic enlargement morphology: unspecified morphology Lower urinary tract symptom presence: presence of symptoms unspecified Qualified Code(s ): N40.0 - Benign prostatic hyperplasia without lower urinary tract symptoms Is this a current diagnosis for this admission?: Yes (15) Chronic back pain Qualifiers: Back pain location: back pain in unspecified location Back pain laterality: unspecified Qualified Code(s): M54.9 - Dorsalgia, unspecified ; G89.29 - Other chronic pain Is this a current diagnosis for this admission?: Yes - Time Time Spent with patient: 25-34 minutes - Plan Summary Plan Summary: We are going to keep the oxygen at 2 L nasal cannula. No reported distress with an oxygen saturation was low. We will keep it at 2 L due to CO2 retention. The meantime we will discontinue intravenous antibiotics and shifted to oral. Continue bronchodilators. We will change his diet to regular. The patient continues to improve, he may be able to be discharged back to the group home in the next 48 hours. Discontinue Bains catheter. Patient oxygen dependent and on 2 L nasal cannula in the group home.
[2016-10-06] MEDS: CLINDAMYCIN HCL 150 MG CAPSULE PO SCH ×4 (10:11→22:18)
[2016-10-06] MEDS: LEVOFLOXACIN 750 MG TABLET PO SCH (10:11)
[2016-10-06] MEDS: FLUOXETINE HCL 20 MG CAPSULE PO SCH (10:12)
[2016-10-06] MEDS: FINASTERIDE 5 MG TABLET PO SCH (10:12)
[2016-10-06] MEDS: HYDROCODONE BIT/HOMATROPINE 5-1.5 MG TABLET PO SCH ×2 (10:12→22:18)
[2016-10-06] MEDS: ASPIRIN 81 MG TABLET, CHEWABLE PO SCH (10:12)
[2016-10-06] MEDS: POLYETHYLENE GLYCOL 3350 POWDER 17 GM/1 PACKET PO SCH (10:13)
[2016-10-06] MEDS: DOCUSATE SODIUM 100 MG CAPSULE PO SCH ×2 (10:18→18:38)
[2016-10-06] MEDS: RANOLAZINE 500 MG TAB.SR.12H PO SCH ×2 (10:18→22:19)
[2016-10-06] MEDS: INSULIN REG, HUMAN 100 UNIT/ML 3 ML VIAL (PYX) SUBCUT PRN (16:58)
[2016-10-06] MEDS: MIRTAZAPINE 15 MG TABLET PO SCH (22:18)
[2016-10-07] MEDS: LEVALBUTEROL HCL NEB 1.25 MG/3 ML AMPUL NEB SCH ×6 (00:51→19:33)
[2016-10-07] MEDS: IPRATROPIUM BROMIDE 0.02% NEB 0.5 MG/2.5 ML AMPUL NEB SCH ×6 (00:51→19:33)
[2016-10-07] MEDS ORDERED: NORMAL SALINE 1000 ML 500 ML IV ONE (03:30)
[2016-10-07] MEDS: FLUTICASONE/SALMETEROL DISKUS 250-50 MCG/DOSE IH SCH ×2 (05:23→17:54)
[2016-10-07] MEDS: LANSOPRAZOLE 30 MG TAB.RAP.DR PO SCH (05:23)
[2016-10-07] MEDS ORDERED: (PENDING PHARMACY ID) (Melatonin [Melatonin] 10 MG) PO PRN (07:32)
[2016-10-07] MEDS ORDERED: BISACODYL 10 MG SUPP.RECT PR PRN (07:32)
[2016-10-07 08:30] LABS: ABSOLUTE EOSINOPHILS # (AUTO) 0.2 10^3/uL (0.0-0.6); ABSOLUTE LYMPHOCYTES (AUTO) 0.7 10^3/uL (0.5-4.7); ABSOLUTE MONOCYTES (AUTO) 0.9 10^3/uL (0.1-1.4); BASOPHILS % (AUTO) 0.2 % (0-2); EOSINOPHILS % (AUTO) 2.7 % (0-6); HEMATOCRIT 28.2 % (37.9-51.0); HEMOGLOBIN 9.2 g/dL (13.5-17.0); HGB HCT DIFFERENCE -0.6; LYMPHOCYTES % (AUTO) 7.9 % (13-45); MEAN CORPUSCULAR HEMOGLOBIN 25.9 pg (27.0-33.4); MEAN CORPUSCULAR HGB CONC 32.7 g/dL (32.0-36.0); MEAN CORPUSCULAR VOLUME 79 fl (80-97); MONOCYTES % (AUTO) 9.7 % (3-13); RED BLOOD COUNT 3.55 10^6/uL (4.35-5.55); RED CELL DISTRIBUTION WIDTH 17.7 % (11.5-14.0); SEGMENTED NEUTROPHILS % (AUTO) 79.5 % (42-78); WHITE BLOOD COUNT 8.8 10^3/uL (4.0-10.5)
[2016-10-07 08:41] LABS: ANION GAP 8 (5-19); BLOOD UREA NITROGEN 22 mg/dL (7-20); CALCIUM 8.4 mg/dL (8.4-10.2); CARBON DIOXIDE 24 mmol/L (22-30); CHLORIDE 101 mmol/L (98-107); CREATININE RESULT 1.24 mg/dL (0.52-1.25); GLUCOSE 127 mg/dL (75-110); POTASSIUM 4.1 mmol/L (3.6-5.0); SODIUM 133.1 mmol/L (137-145)
[2016-10-07] MEDS ORDERED: (PENDING PHARMACY ID) (Umeclidinium Bromide [Incruse Ellipta] 1 PUFF) IH SCH (10:00)
[2016-10-07] MEDS: HYDROCODONE BIT/HOMATROPINE 5-1.5 MG TABLET PO SCH ×2 (10:34→22:18)
[2016-10-07] MEDS: FINASTERIDE 5 MG TABLET PO SCH (10:35)
[2016-10-07] MEDS: CLINDAMYCIN HCL 150 MG CAPSULE PO SCH ×4 (10:35→22:18)
[2016-10-07] MEDS: FLUOXETINE HCL 20 MG CAPSULE PO SCH (10:35)
[2016-10-07] MEDS: LEVOFLOXACIN 750 MG TABLET PO SCH (10:35)
[2016-10-07] MEDS: DOCUSATE SODIUM 100 MG CAPSULE PO SCH ×2 (10:36→17:56)
[2016-10-07] MEDS: ASPIRIN 81 MG TABLET, CHEWABLE PO SCH (10:36)
[2016-10-07] MEDS: RANOLAZINE 500 MG TAB.SR.12H PO SCH ×2 (10:37→22:20)
[2016-10-07] MEDS: POLYETHYLENE GLYCOL 3350 POWDER 17 GM/1 PACKET PO SCH (10:58)
[2016-10-07] MEDS: INSULIN REG, HUMAN 100 UNIT/ML 3 ML VIAL (PYX) SUBCUT PRN (12:11)
[2016-10-07] MEDS: TAMSULOSIN HCL 0.4 MG CAP.SR.24H PO SCH (17:56)
[2016-10-07] MEDS: MIRTAZAPINE 15 MG TABLET PO SCH (22:17)
[2016-10-08] MEDS: LEVALBUTEROL HCL NEB 1.25 MG/3 ML AMPUL NEB SCH ×5 (00:02→20:11)
[2016-10-08] MEDS: IPRATROPIUM BROMIDE 0.02% NEB 0.5 MG/2.5 ML AMPUL NEB SCH ×5 (00:02→20:11)
--- NOTE | 2016-10-08 00:08 | PDOC PROGRESS REPORT ---
Subjective Progress Note for:: 10/07/16 Subjective:: Patient reports he's feeling significantly better today. Patient did have relief of his constipation. Patient required placement of Bains catheter overnight for urinary retention. Patient continues to have episodes of gross hemoptysis. None more than 1 cup. Patient denies chest pain,abdominal pain, nausea, vomiting, fevers, chills, diarrhea, constipation, headache, new onset weakness. Physical Exam Vital Signs: Temp Pulse Resp BP Pulse Ox 97.8 F 94 13 144/96 H 97 10/07/16 04:50 10/07/16 04:50 10/07/16 04:50 10/07/16 04:50 10/07/16 04:50 Intake & Output 10/06/16 10/07/16 10/08/16 06:59 06:59 06:59 Intake Total 2106 2308 Output Total 1900 1300 Balance 206 1008 Weight 77.3 kg 77.3 kg Exam: General: Awake alert and orientedx3, no acute respiratory distress HEENT: AT/NC, PERRL, EOMI, oropharynx is moist, pink, no scleral icterus, no conjunctival injection Neck: No JVD, trachea midline Chest: Occasional scattered rhonchi, prolonged expiratory phase CV: Regular rate and rhythm, normal S1 and S2, no rub, or gallop Abdomen: Soft, nontender to palpation, nondistended, active bowel sounds; no rebound, rigidity, or guarding Extremities: No cyanosis, clubbing or edema Neuro: Cranial nerves II through XII are grossly intact without focal deficits; awake alert and oriented x3 Psych: Normal mood and affect Results Laboratory Results: 10/06/16 04:09 10/06/16 04:09 10/02/16 10/02/16 10/02/16 11:59 11:59 11:59 Creatine Kinase 30 L CK-MB (CK-2) 3.63 Troponin I 0.443 NT-Pro-B Natriuret Pep 2280 H 10/02/16 10/02/16 10/02/16 16:41 16:41 20:25 Creatine Kinase 38 L 34 L CK-MB (CK-2) 3.41 Troponin I 0.369 NT-Pro-B Natriuret Pep 10/02/16 10/03/16 20:25 02:18 Creatine Kinase CK-MB (CK-2) 3.25 Troponin I 0.302 0.261 NT-Pro-B Natriuret Pep Impressions: Acute Abdomen Series 10/02/16 03:09 IMPRESSION: NO RADIOGRAPHIC EVIDENCE FOR ACUTE ABDOMINAL DISEASE. MODERATE FECAL RETENTION MOST NOTABLY WITHIN THE RECTAL VAULT. CORRELATE WITH PHYSICAL EXAM FOR EVIDENCE OF FECAL IMPACTION. Chest/Abdomen CTA 10/02/16 05:21 IMPRESSION: 1. No acute pulmonary embolus identified. 2. There is aneurysmal dilatation of the ascending and descending thoracic aorta as above. No dilated bronchial artery is identified to suggest bronchial artery hemorrhage. 3. There is bronchiectatic changes noted throughout the lungs, similar to prior studies most prominent in both lower lobes. There is scarring seen throughout the the lungs most notably in the dependent portions. There is some tree-in- bud and ground-glass opacities seen in the right upper lobe which could represent an area of infection/ inflammation. There is extensive centrilobular emphysematous disease noted throughout. 4. Mediastinal adenopathy with the largest lymph nodes measuring approximate 1.2 cm in AP dimension these could represent reactive adenopathy versus metastatic lymph nodes, reactive adenopathy is favored as there is no evidence of malignancy on this study. Chest X-Ray 10/03/16 00:00 IMPRESSION: Findings suggestive of COPD with chronic interstitial changes, similar to prior studies. There is a new opacity noted in the left retrocardiac region likely representing atelectasis, edema, infiltrate, or aspiration. Atelectasis, edema, or aspiration are more favored given the rapid development of this area compared to prior CT from 10/02/2016. Previously noted opacity in the right lung apex comm well seen on today's study and may have resolved. Assessment & Plan - Diagnosis (1) Acute hypercapnic respiratory failure Is this a current diagnosis for this admission?: YesPlan: Patient appears to improve significantly on BiPAP. Continue to use this at night. (2) Aspiration into airway Qualifiers: Encounter type: initial encounter Qualified Code(s): T17.908A - Unspecified foreign body in respiratory tract, part unspecified causing other injury, initial encounter Is this a current diagnosis for this admission?: YesPlan: Patient reports some aspiration. Concerned that patient's thoracic aortic aneurysm is causing recurrent laryngeal nerve dysfunction. Have consulted speech therapy. (3) BPH (benign prostatic hyperplasia) Qualifiers: Prostatic enlargement morphology: unspecified morphology Lower urinary tract symptom presence: presence of symptoms unspecified Qualified Code(s ): N40.0 - Benign prostatic hyperplasia without lower urinary tract symptoms Is this a current diagnosis for this admission?: YesPlan: Have also place patient on Flomax. Continue finasteride. Will give this 24 hours and attempt to remove Bains again in a.m. Patient may require in and out catheterization. (4) Bronchiectasis Qualifiers: Bronchiectasis type: with acute lower respiratory infection Qualified Code(s): J47.0 - Bronchiectasis with acute lower respiratory infection Is this a current diagnosis for this admission?: YesPlan: Patient has significant COPD and bronchiectasis. Concern for abnormal pathogens. This also is likely the source of patient's hemoptysis. Will repeat chest x-ray in a.m. (5) COPD exacerbation Is this a current diagnosis for this admission?: YesPlan: At this time, patient reports an allergy to cortisone and reports that steroids make him crazy. Patient is having no bronchospastic component at this time, and will continue with antibiotic therapy for his aspiration pneumonia with clindamycin and Levaquin. (6) Chronic back pain Qualifiers: Back pain location: back pain in unspecified location Back pain laterality: unspecified Qualified Code(s): M54.9 - Dorsalgia, unspecified ; G89.29 - Other chronic pain Is this a current diagnosis for this admission?: YesPlan: Consider addition of tramadol for pain. (7) Constipation Qualifiers: Constipation type: unspecified constipation type Qualified Code(s): K59.00 - Constipation, unspecified Is this a current diagnosis for this admission?: YesPlan: Has resolved. Continue cathartics (8) Coronary artery disease Qualifiers: Coronary Disease-Associated Artery/Lesion type: [place] artery [place] vs. transplanted heart: [place] heart Associated angina: without angina Qualified Code(s): I25.10 - Atherosclerotic heart disease of [place] coronary artery without angina pectoris Is this a current diagnosis for this admission?: Yes (9) Elevated troponin Is this a current diagnosis for this admission?: Yes (10) Hyponatremia Is this a current diagnosis for this admission?: Yes (11) Non-STEMI (non-ST elevated myocardial infarction) Is this a current diagnosis for this admission?: YesPlan: Patient with type II non-STEMI likely secondary to sepsis and renal failure. Appreciate cardiology input. Continue Ranexa. Patient currently on aspirin, and Ranexa. No Sher/ARB at this time due to presenting renal failure. Very hesitant to add a beta cedric to this patient given his severe COPD. Will judiciously add this. (12) Pneumonia Qualifiers: Pneumonia type: due to unspecified organism Laterality: right Lung location: upper lobe of lung Qualified Code(s): J18.1 - Lobar pneumonia, unspecified organism Is this a current diagnosis for this admission?: YesPlan: Continue Levaquin and clindamycin. Continue nebulized treatments. (13) Thoracic aortic aneurysm Qualifiers: Presence of rupture: without rupture Qualified Code(s): I71.2 - Thoracic aortic aneurysm, without rupture Is this a current diagnosis for this admission?: Yes (14) Type 2 diabetes mellitus with hyperglycemia Qualifiers: Diabetes mellitus superintendent terminal insulin use: with superintendent terminal use Qualified Code(s): E11.65 - Type 2 diabetes mellitus with hyperglycemia Is this a current diagnosis for this admission?: YesPlan: Patient has a hemoglobin A1c of 6.1. He is very tightly controlled. Concern for hypoglycemia in the elderly. Continue sliding scale insulin. Her blood sugars are within acceptable range. - Time Time Spent with patient: 35 or more minutes Medications reviewed and adjusted accordingly: Yes
[2016-10-08] MEDS: FLUTICASONE/SALMETEROL DISKUS 250-50 MCG/DOSE IH SCH ×2 (06:32→17:37)
[2016-10-08] MEDS: LANSOPRAZOLE 30 MG TAB.RAP.DR PO SCH (06:32)
[2016-10-08 07:01] LABS: ABSOLUTE EOSINOPHILS # (AUTO) 0.2 10^3/uL (0.0-0.6); ABSOLUTE LYMPHOCYTES (AUTO) 0.7 10^3/uL (0.5-4.7); ABSOLUTE MONOCYTES (AUTO) 0.8 10^3/uL (0.1-1.4); BASOPHILS % (AUTO) 0.3 % (0-2); EOSINOPHILS % (AUTO) 2.3 % (0-6); HEMATOCRIT 28.4 % (37.9-51.0); HEMOGLOBIN 9.2 g/dL (13.5-17.0); HGB HCT DIFFERENCE -0.8; LYMPHOCYTES % (AUTO) 7.6 % (13-45); MEAN CORPUSCULAR HEMOGLOBIN 25.9 pg (27.0-33.4); MEAN CORPUSCULAR HGB CONC 32.5 g/dL (32.0-36.0); MEAN CORPUSCULAR VOLUME 80 fl (80-97); MONOCYTES % (AUTO) 9.6 % (3-13); RED BLOOD COUNT 3.57 10^6/uL (4.35-5.55); RED CELL DISTRIBUTION WIDTH 17.9 % (11.5-14.0); SEGMENTED NEUTROPHILS % (AUTO) 80.2 % (42-78); WHITE BLOOD COUNT 8.7 10^3/uL (4.0-10.5)
[2016-10-08 07:03] LABS: PROTHROMBIN TIME 14.7 SEC (11.4-15.4)
[2016-10-08 07:04] LABS: PARTIAL THROMBOPLASTIN TIME 45.6 SEC (23.5-35.8)
[2016-10-08 07:18] LABS: ALANINE AMINOTRANSFERASE 26 U/L (21-72); ALKALINE PHOSPHATASE 68 U/L (38-126); ANION GAP 11 (5-19); ASPARTATE AMINO TRANSFERASE 16 U/L (17-59); BILIRUBIN,TOTAL 0.5 mg/dL (0.2-1.3); BLOOD UREA NITROGEN 20 mg/dL (7-20); CALCIUM 8.7 mg/dL (8.4-10.2); CARBON DIOXIDE 23 mmol/L (22-30); CHLORIDE 101 mmol/L (98-107); CREATININE RESULT 1.33 mg/dL (0.52-1.25); GLUCOSE 111 mg/dL (75-110); MAGNESIUM 1.9 mg/dL (1.6-2.3); SODIUM 134.6 mmol/L (137-145); TOTAL PROTEIN 6.3 g/dL (6.3-8.2)
[2016-10-08 07:26] LABS: PREALBUMIN 8.9 mg/dL (17.6-36.0)
[2016-10-08] MEDS: CLINDAMYCIN HCL 150 MG CAPSULE PO SCH ×2 (10:29→14:34)
[2016-10-08] MEDS: DOCUSATE SODIUM 100 MG CAPSULE PO SCH ×2 (10:29→17:36)
[2016-10-08] MEDS: FINASTERIDE 5 MG TABLET PO SCH (10:29)
[2016-10-08] MEDS: FLUOXETINE HCL 20 MG CAPSULE PO SCH (10:29)
[2016-10-08] MEDS: LEVOFLOXACIN 750 MG TABLET PO SCH (10:29)
[2016-10-08] MEDS: ASPIRIN 81 MG TABLET, CHEWABLE PO SCH (10:29)
[2016-10-08] MEDS: POLYETHYLENE GLYCOL 3350 POWDER 17 GM/1 PACKET PO SCH (10:30)
[2016-10-08] MEDS: RANOLAZINE 500 MG TAB.SR.12H PO SCH ×2 (10:30→21:42)
[2016-10-08] MEDS: HYDROCODONE BIT/HOMATROPINE 5-1.5 MG TABLET PO SCH ×2 (10:30→21:38)
[2016-10-08] MEDS ORDERED: SIMETHICONE 80 MG TAB.CHEW PO PRN (10:34)
--- NOTE | 2016-10-08 16:50 | PDOC PROGRESS REPORT ---
Subjective Progress Note for:: 10/08/16 Subjective:: Patient again had episode of hemoptysis overnight. Patient reports that his abdomen is slightly tender after taking cathartics. Patient reports being shaky and feeling unable to eat after having breathing treatments. Patient denies chest pain, shortness of breath, nausea, vomiting, fevers, chills , diarrhea, constipation, headache, new onset weakness. Physical Exam Vital Signs: Temp Pulse Resp BP Pulse Ox 97.3 F 93 18 105/64 94 10/08/16 04:12 10/08/16 04:15 10/08/16 04:15 10/08/16 04:12 10/08/16 04:15 Intake & Output 10/07/16 10/08/16 10/09/16 06:59 06:59 06:59 Intake Total 2308 1108 Output Total 1300 1525 Balance 1008 -417 Weight 77.3 kg 75.5 kg Exam: General: Awake alert and orientedx3, no acute respiratory distress HEENT: AT/NC, PERRL, EOMI, oropharynx is moist, pink, no scleral icterus, no conjunctival injection Neck: No JVD, trachea midline Chest: Clear to auscultation bilaterally, prolonged expiratory phase CV: Regular rate and rhythm, normal S1 and S2, no rub, or gallop Abdomen: Soft, nontender to palpation, nondistended, active bowel sounds; no rebound, rigidity, or guarding Extremities: No cyanosis, clubbing or edema Neuro: Cranial nerves II through XII are grossly intact without focal deficits; awake alert and oriented x3 Psych: Normal mood and affect Results Laboratory Results: 10/08/16 06:07 10/08/16 06:07 10/07/16 10/07/16 10/08/16 07:52 07:52 06:07 WBC 8.8 8.7 RBC 3.55 L 3.57 L Hgb 9.2 L 9.2 L Hct 28.2 L 28.4 L MCV 79 L 80 MCH 25.9 L 25.9 L MCHC 32.7 32.5 RDW 17.7 H 17.9 H Plt Count 333 365 Seg Neutrophils % 79.5 H 80.2 H Lymphocytes % 7.9 L 7.6 L Monocytes % 9.7 9.6 Eosinophils % 2.7 2.3 Basophils % 0.2 0.3 Absolute Neutrophils 7.0 7.0 Absolute Lymphocytes 0.7 0.7 Absolute Monocytes 0.9 0.8 Absolute Eosinophils 0.2 0.2 Absolute Basophils 0.0 0.0 Sodium 133.1 L Potassium 4.1 Chloride 101 Carbon Dioxide 24 Anion Gap 8 BUN 22 H Creatinine 1.24 Est GFR ( Amer) > 60 Est GFR (Non-Af Amer) 55 L Glucose 127 H Calcium 8.4 Magnesium Total Bilirubin AST ALT Alkaline Phosphatase Total Protein Albumin Prealbumin 10/08/16 06:07 WBC RBC Hgb Hct MCV MCH MCHC RDW Plt Count Seg Neutrophils % Lymphocytes % Monocytes % Eosinophils % Basophils % Absolute Neutrophils Absolute Lymphocytes Absolute Monocytes Absolute Eosinophils Absolute Basophils Sodium 134.6 L Potassium 4.0 Chloride 101 Carbon Dioxide 23 Anion Gap 11 BUN 20 Creatinine 1.33 H Est GFR ( Amer) > 60 Est GFR (Non-Af Amer) 51 L Glucose 111 H Calcium 8.7 Magnesium 1.9 Total Bilirubin 0.5 AST 16 L ALT 26 Alkaline Phosphatase 68 Total Protein 6.3 Albumin 3.0 L Prealbumin 8.9 L 10/02/16 10/02/16 10/02/16 11:59 11:59 11:59 Creatine Kinase 30 L CK-MB (CK-2) 3.63 Troponin I 0.443 NT-Pro-B Natriuret Pep 2280 H 10/02/16 10/02/16 10/02/16 16:41 16:41 20:25 Creatine Kinase 38 L 34 L CK-MB (CK-2) 3.41 Troponin I 0.369 NT-Pro-B Natriuret Pep 10/02/16 10/03/16 20:25 02:18 Creatine Kinase CK-MB (CK-2) 3.25 Troponin I 0.302 0.261 NT-Pro-B Natriuret Pep Impressions: Acute Abdomen Series 10/02/16 03:09 IMPRESSION: NO RADIOGRAPHIC EVIDENCE FOR ACUTE ABDOMINAL DISEASE. MODERATE FECAL RETENTION MOST NOTABLY WITHIN THE RECTAL VAULT. CORRELATE WITH PHYSICAL EXAM FOR EVIDENCE OF FECAL IMPACTION. Chest/Abdomen CTA 10/02/16 05:21 IMPRESSION: 1. No acute pulmonary embolus identified. 2. There is aneurysmal dilatation of the ascending and descending thoracic aorta as above. No dilated bronchial artery is identified to suggest bronchial artery hemorrhage. 3. There is bronchiectatic changes noted throughout the lungs, similar to prior studies most prominent in both lower lobes. There is scarring seen throughout the the lungs most notably in the dependent portions. There is some tree-in- bud and ground-glass opacities seen in the right upper lobe which could represent an area of infection/ inflammation. There is extensive centrilobular emphysematous disease noted throughout. 4. Mediastinal adenopathy with the largest lymph nodes measuring approximate 1.2 cm in AP dimension these could represent reactive adenopathy versus metastatic lymph nodes, reactive adenopathy is favored as there is no evidence of malignancy on this study. Chest X-Ray 10/03/16 00:00 IMPRESSION: Findings suggestive of COPD with chronic interstitial changes, similar to prior studies. There is a new opacity noted in the left retrocardiac region likely representing atelectasis, edema, infiltrate, or aspiration. Atelectasis, edema, or aspiration are more favored given the rapid development of this area compared to prior CT from 10/02/2016. Previously noted opacity in the right lung apex comm well seen on today's study and may have resolved. Assessment & Plan - Diagnosis (1) Acute hypercapnic respiratory failure Is this a current diagnosis for this admission?: YesPlan: Patient appears to improve significantly on BiPAP. Continue to use this at night. (2) Aspiration into airway Qualifiers: Encounter type: initial encounter Qualified Code(s): T17.908A - Unspecified foreign body in respiratory tract, part unspecified causing other injury, initial encounter Is this a current diagnosis for this admission?: YesPlan: Patient reports some aspiration. Concerned that patient's thoracic aortic aneurysm is causing recurrent laryngeal nerve dysfunction. Have consulted speech therapy. Patient given speech therapy notes and modified diet. (3) BPH (benign prostatic hyperplasia) Qualifiers: Prostatic enlargement morphology: unspecified morphology Lower urinary tract symptom presence: presence of symptoms unspecified Qualified Code(s ): N40.0 - Benign prostatic hyperplasia without lower urinary tract symptoms Is this a current diagnosis for this admission?: YesPlan: Have also place patient on Flomax. Continue finasteride. Will attempt to remove Bains again. Patient may require in and out catheterization. (4) Bronchiectasis Qualifiers: Bronchiectasis type: with acute lower respiratory infection Qualified Code(s): J47.0 - Bronchiectasis with acute lower respiratory infection Is this a current diagnosis for this admission?: YesPlan: Patient has significant COPD and bronchiectasis. Concern for abnormal pathogens. This also is likely the source of patient's hemoptysis. (5) COPD exacerbation Is this a current diagnosis for this admission?: Yes (6) Chronic back pain Qualifiers: Back pain location: back pain in unspecified location Back pain laterality: unspecified Qualified Code(s): M54.9 - Dorsalgia, unspecified ; G89.29 - Other chronic pain Is this a current diagnosis for this admission?: Yes (7) Constipation Qualifiers: Constipation type: unspecified constipation type Qualified Code(s): K59.00 - Constipation, unspecified Is this a current diagnosis for this admission?: YesPlan: Has resolved. (8) Coronary artery disease Qualifiers: Coronary Disease-Associated Artery/Lesion type: [place] artery [place] vs. transplanted heart: [place] heart Associated angina: without angina Qualified Code(s): I25.10 - Atherosclerotic heart disease of [place] coronary artery without angina pectoris Is this a current diagnosis for this admission?: Yes (9) Elevated troponin Is this a current diagnosis for this admission?: Yes (10) Hyponatremia Is this a current diagnosis for this admission?: Yes (11) Non-STEMI (non-ST elevated myocardial infarction) Is this a current diagnosis for this admission?: YesPlan: Patient with type II non-STEMI likely secondary to sepsis and renal failure. Appreciate cardiology input. Continue Ranexa. Patient currently on aspirin, and Ranexa. No Sher/ARB at this time due to presenting renal failure. Very hesitant to add a beta cedric to this patient given his severe COPD. Will judiciously add this. (12) Pneumonia Qualifiers: Pneumonia type: due to unspecified organism Laterality: right Lung location: upper lobe of lung Qualified Code(s): J18.1 - Lobar pneumonia, unspecified organism Is this a current diagnosis for this admission?: YesPlan: Continue Levaquin and discontinue clindamycin. Continue nebulized treatments. (13) Thoracic aortic aneurysm Qualifiers: Presence of rupture: without rupture Qualified Code(s): I71.2 - Thoracic aortic aneurysm, without rupture Is this a current diagnosis for this admission?: Yes (14) Type 2 diabetes mellitus with hyperglycemia Qualifiers: Diabetes mellitus assistant terminal manager insulin use: with correction use Qualified Code(s): E11.65 - Type 2 diabetes mellitus with hyperglycemia Is this a current diagnosis for this admission?: YesPlan: Patient has a hemoglobin A1c of 6.1. He is very tightly controlled. Concern for hypoglycemia in the elderly. Continue sliding scale insulin. Her blood sugars are within acceptable range. - Time Time Spent with patient: 25-34 minutes Medications reviewed and adjusted accordingly: Yes Within: when bed available - Return to residential on Tuesday.
[2016-10-08] MEDS: TAMSULOSIN HCL 0.4 MG CAP.SR.24H PO SCH (17:36)
[2016-10-08] MEDS: MIRTAZAPINE 15 MG TABLET PO SCH (21:38)
[2016-10-09] MEDS: LEVALBUTEROL HCL NEB 1.25 MG/3 ML AMPUL NEB PRN (00:05)
[2016-10-09] MEDS: FLUTICASONE/SALMETEROL DISKUS 250-50 MCG/DOSE IH SCH ×2 (06:15→17:40)
[2016-10-09] MEDS: LANSOPRAZOLE 30 MG TAB.RAP.DR PO SCH (06:15)
[2016-10-09] MEDS: LEVALBUTEROL HCL NEB 1.25 MG/3 ML AMPUL NEB SCH ×3 (07:54→20:01)
[2016-10-09] MEDS: IPRATROPIUM BROMIDE 0.02% NEB 0.5 MG/2.5 ML AMPUL NEB SCH ×3 (07:54→20:01)
[2016-10-09] MEDS: INSULIN REG, HUMAN 100 UNIT/ML 3 ML VIAL (PYX) SUBCUT PRN ×2 (08:21→17:41)
[2016-10-09 09:42] LABS: ANION GAP 9 (5-19); BLOOD UREA NITROGEN 19 mg/dL (7-20); CALCIUM 8.4 mg/dL (8.4-10.2); CARBON DIOXIDE 23 mmol/L (22-30); CHLORIDE 102 mmol/L (98-107); CREATININE RESULT 1.17 mg/dL (0.52-1.25); GLUCOSE 138 mg/dL (75-110); SODIUM 133.6 mmol/L (137-145)
[2016-10-09] MEDS ORDERED: MULTIVITAMIN ORAL LIQUID 60 ML PO SCH (10:00)
[2016-10-09] MEDS: LEVOFLOXACIN 750 MG TABLET PO SCH (10:34)
[2016-10-09] MEDS: HYDROCODONE BIT/HOMATROPINE 5-1.5 MG TABLET PO SCH (10:35)
[2016-10-09] MEDS: ASPIRIN 81 MG TABLET, CHEWABLE PO SCH (10:35)
[2016-10-09] MEDS: FLUOXETINE HCL 20 MG CAPSULE PO SCH (10:36)
[2016-10-09] MEDS: DOCUSATE SODIUM 100 MG CAPSULE PO SCH ×2 (10:36→17:39)
[2016-10-09] MEDS: FINASTERIDE 5 MG TABLET PO SCH (10:36)
[2016-10-09] MEDS: MULTIVITS W-MIN/IRON SOLN 60 ML PO SCH (10:37)
[2016-10-09] MEDS: RANOLAZINE 500 MG TAB.SR.12H PO SCH (10:38)
--- NOTE | 2016-10-09 16:32 | PDOC PROGRESS REPORT ---
Subjective Progress Note for:: 10/09/16 Subjective:: Patient reports that he is tired today. He apparently reported to nursing that he had some hallucinations yesterday but not today.Patient denies chest pain, abdominal pain, nausea, vomiting, fevers, chills, diarrhea, constipation, headache, new onset weakness. Physical Exam Vital Signs: Temp Pulse Resp BP Pulse Ox 97.9 F 97 16 95/56 L 97 10/09/16 11:28 10/09/16 13:10 10/09/16 13:10 10/09/16 11:28 10/09/16 13:10 Intake & Output 10/08/16 10/09/16 10/10/16 06:59 06:59 06:59 Intake Total 1108 332 474 Output Total 1525 775 50 Balance -417 -443 424 Weight 75.5 kg 72.6 kg Exam: General: Awake alert and orientedx3, no acute respiratory distress HEENT: AT/NC, PERRL, EOMI, oropharynx is moist, pink, no scleral icterus, no conjunctival injection Neck: No JVD, trachea midline Chest: Rhonchi bilaterally, prolonged expiratory phase CV: Regular rate and rhythm, normal S1 and S2, no rub, or gallop Abdomen: Soft, nontender to palpation, nondistended, active bowel sounds; no rebound, rigidity, or guarding Extremities: No cyanosis, clubbing or edema Neuro: Cranial nerves II through XII are grossly intact without focal deficits; awake alert and oriented x3 Psych: Normal mood and affect Results Laboratory Results: 10/08/16 06:07 10/09/16 08:31 10/09/16 08:31 Sodium 133.6 L Potassium 4.0 Chloride 102 Carbon Dioxide 23 Anion Gap 9 BUN 19 Creatinine 1.17 Est GFR ( Amer) > 60 Est GFR (Non-Af Amer) 59 L Glucose 138 H Calcium 8.4 10/02/16 10/02/16 10/02/16 11:59 11:59 11:59 Creatine Kinase 30 L CK-MB (CK-2) 3.63 Troponin I 0.443 NT-Pro-B Natriuret Pep 2280 H 10/02/16 10/02/16 10/02/16 16:41 16:41 20:25 Creatine Kinase 38 L 34 L CK-MB (CK-2) 3.41 Troponin I 0.369 NT-Pro-B Natriuret Pep 10/02/16 10/03/16 20:25 02:18 Creatine Kinase CK-MB (CK-2) 3.25 Troponin I 0.302 0.261 NT-Pro-B Natriuret Pep Impressions: Acute Abdomen Series 10/02/16 03:09 IMPRESSION: NO RADIOGRAPHIC EVIDENCE FOR ACUTE ABDOMINAL DISEASE. MODERATE FECAL RETENTION MOST NOTABLY WITHIN THE RECTAL VAULT. CORRELATE WITH PHYSICAL EXAM FOR EVIDENCE OF FECAL IMPACTION. Chest/Abdomen CTA 10/02/16 05:21 IMPRESSION: 1. No acute pulmonary embolus identified. 2. There is aneurysmal dilatation of the ascending and descending thoracic aorta as above. No dilated bronchial artery is identified to suggest bronchial artery hemorrhage. 3. There is bronchiectatic changes noted throughout the lungs, similar to prior studies most prominent in both lower lobes. There is scarring seen throughout the the lungs most notably in the dependent portions. There is some tree-in- bud and ground-glass opacities seen in the right upper lobe which could represent an area of infection/ inflammation. There is extensive centrilobular emphysematous disease noted throughout. 4. Mediastinal adenopathy with the largest lymph nodes measuring approximate 1.2 cm in AP dimension these could represent reactive adenopathy versus metastatic lymph nodes, reactive adenopathy is favored as there is no evidence of malignancy on this study. Chest X-Ray 10/08/16 06:00 IMPRESSION: COPD. Small left pleural effusion Assessment & Plan - Diagnosis (1) Acute hypercapnic respiratory failure Is this a current diagnosis for this admission?: YesPlan: We'll replace patient on BiPAP at this time. Patient has had inconsistent usage at night. Continue to use this at night. (2) Aspiration into airway Qualifiers: Encounter type: initial encounter Qualified Code(s): T17.908A - Unspecified foreign body in respiratory tract, part unspecified causing other injury, initial encounter Is this a current diagnosis for this admission?: YesPlan: Patient reports some aspiration. Concerned that patient's thoracic aortic aneurysm is causing recurrent laryngeal nerve dysfunction. Have consulted speech therapy. Patient given speech therapy notes and modified diet. (3) BPH (benign prostatic hyperplasia) Qualifiers: Prostatic enlargement morphology: unspecified morphology Lower urinary tract symptom presence: presence of symptoms unspecified Qualified Code(s ): N40.0 - Benign prostatic hyperplasia without lower urinary tract symptoms Is this a current diagnosis for this admission?: YesPlan: Have also place patient on Flomax. Continue finasteride. Patient was able to tolerate Bains removal. He will likely need to be discharged with this and follow-up with urology as an outpatient. (4) Bronchiectasis Qualifiers: Bronchiectasis type: with acute lower respiratory infection Qualified Code(s): J47.0 - Bronchiectasis with acute lower respiratory infection Is this a current diagnosis for this admission?: Yes (5) COPD exacerbation Is this a current diagnosis for this admission?: Yes (6) Chronic back pain Qualifiers: Back pain location: back pain in unspecified location Back pain laterality: unspecified Qualified Code(s): M54.9 - Dorsalgia, unspecified ; G89.29 - Other chronic pain Is this a current diagnosis for this admission?: Yes (7) Constipation Qualifiers: Constipation type: unspecified constipation type Qualified Code(s): K59.00 - Constipation, unspecified Is this a current diagnosis for this admission?: YesPlan: Has resolved. (8) Coronary artery disease Qualifiers: Coronary Disease-Associated Artery/Lesion type: [place] artery [place] vs. transplanted heart: [place] heart Associated angina: without angina Qualified Code(s): I25.10 - Atherosclerotic heart disease of [place] coronary artery without angina pectoris Is this a current diagnosis for this admission?: Yes (9) Elevated troponin Is this a current diagnosis for this admission?: Yes (10) Hyponatremia Is this a current diagnosis for this admission?: Yes (11) Non-STEMI (non-ST elevated myocardial infarction) Is this a current diagnosis for this admission?: YesPlan: Patient with type II non-STEMI likely secondary to sepsis and renal failure. Appreciate cardiology input. Continue Ranexa. Patient currently on aspirin, and Ranexa. No Sher/ARB at this time due to presenting renal failure. Very hesitant to add a beta cedric to this patient given his severe COPD. Will judiciously add this. (12) Pneumonia Qualifiers: Pneumonia type: due to unspecified organism Laterality: right Lung location: upper lobe of lung Qualified Code(s): J18.1 - Lobar pneumonia, unspecified organism Is this a current diagnosis for this admission?: YesPlan: Continue Levaquin. Continue nebulized treatments. (13) Thoracic aortic aneurysm Qualifiers: Presence of rupture: without rupture Qualified Code(s): I71.2 - Thoracic aortic aneurysm, without rupture Is this a current diagnosis for this admission?: Yes (14) Type 2 diabetes mellitus with hyperglycemia Qualifiers: Diabetes mellitus shelter insulin use: with termite renewal inspector use Qualified Code(s): E11.65 - Type 2 diabetes mellitus with hyperglycemia Is this a current diagnosis for this admission?: Yes - Time Time Spent with patient: 25-34 minutes Medications reviewed and adjusted accordingly: Yes
[2016-10-09] MEDS ORDERED: FUROSEMIDE INJ/PF 20 MG/2 ML SDV IV ONE (17:30)
[2016-10-09] MEDS: TAMSULOSIN HCL 0.4 MG CAP.SR.24H PO SCH (17:39)
[2016-10-10] MEDS: LEVALBUTEROL HCL NEB 1.25 MG/3 ML AMPUL NEB PRN (02:01)
[2016-10-10] MEDS: RANOLAZINE 500 MG TAB.SR.12H PO SCH ×3 (05:03→21:13)
[2016-10-10] MEDS: LANSOPRAZOLE 30 MG TAB.RAP.DR PO SCH (05:39)
[2016-10-10] MEDS: FLUTICASONE/SALMETEROL DISKUS 250-50 MCG/DOSE IH SCH ×2 (05:39→17:30)
[2016-10-10] MEDS: BENZONATATE 100 MG CAPSULE PO PRN ×2 (05:41→15:08)
[2016-10-10] MEDS: IPRATROPIUM BROMIDE 0.02% NEB 0.5 MG/2.5 ML AMPUL NEB SCH ×3 (08:11→19:40)
[2016-10-10] MEDS: LEVALBUTEROL HCL NEB 1.25 MG/3 ML AMPUL NEB SCH ×3 (08:11→19:40)
[2016-10-10 08:30] LABS: ABSOLUTE EOSINOPHILS # (AUTO) 0.2 10^3/uL (0.0-0.6); ABSOLUTE LYMPHOCYTES (AUTO) 0.7 10^3/uL (0.5-4.7); ABSOLUTE NEUT (AUTO) 9.4 10^3/uL (1.7-8.2); BASOPHILS % (AUTO) 0.2 % (0-2); EOSINOPHILS % (AUTO) 1.4 % (0-6); HEMATOCRIT 27.6 % (37.9-51.0); HEMOGLOBIN 8.8 g/dL (13.5-17.0); HGB HCT DIFFERENCE -1.2; LYMPHOCYTES % (AUTO) 6.4 % (13-45); MEAN CORPUSCULAR HEMOGLOBIN 25.3 pg (27.0-33.4); MEAN CORPUSCULAR HGB CONC 31.7 g/dL (32.0-36.0); MEAN CORPUSCULAR VOLUME 80 fl (80-97); MONOCYTES % (AUTO) 8.6 % (3-13); RED BLOOD COUNT 3.46 10^6/uL (4.35-5.55); RED CELL DISTRIBUTION WIDTH 18.5 % (11.5-14.0); SEGMENTED NEUTROPHILS % (AUTO) 83.4 % (42-78); WHITE BLOOD COUNT 11.2 10^3/uL (4.0-10.5)
[2016-10-10 08:49] LABS: ANION GAP 9 (5-19); BLOOD UREA NITROGEN 23 mg/dL (7-20); CALCIUM 8.8 mg/dL (8.4-10.2); CARBON DIOXIDE 26 mmol/L (22-30); CHLORIDE 99 mmol/L (98-107); CREATININE RESULT 1.24 mg/dL (0.52-1.25); GLUCOSE 267 mg/dL (75-110); POTASSIUM 3.9 mmol/L (3.6-5.0); SODIUM 134.2 mmol/L (137-145)
[2016-10-10] MEDS: FLUOXETINE HCL 20 MG CAPSULE PO SCH (09:42)
[2016-10-10] MEDS: DOCUSATE SODIUM 100 MG CAPSULE PO SCH ×2 (09:42→17:29)
[2016-10-10] MEDS: ASPIRIN 81 MG TABLET, CHEWABLE PO SCH (09:42)
[2016-10-10] MEDS: LEVOFLOXACIN 750 MG TABLET PO SCH (09:42)
[2016-10-10] MEDS: FINASTERIDE 5 MG TABLET PO SCH (09:43)
[2016-10-10] MEDS: MULTIVITS W-MIN/IRON SOLN 60 ML PO SCH (09:44)
--- NOTE | 2016-10-10 16:21 | PDOC PROGRESS REPORT ---
Subjective Progress Note for:: 10/10/16 Subjective:: Patient reports he's breathing and feeling much better. Patient denies chest pain, shortness of breath, abdominal pain, nausea, vomiting , fevers, chills, diarrhea, constipation, headache, new onset weakness. Physical Exam Vital Signs: Temp Pulse Resp BP Pulse Ox 97.5 F 104 H 20 104/58 L 96 10/10/16 03:41 10/10/16 03:41 10/10/16 03:41 10/10/16 03:41 10/10/16 03:41 Intake & Output 10/09/16 10/10/16 10/11/16 06:59 06:59 06:59 Intake Total 332 1189 Output Total 775 900 Balance -443 289 Weight 72.6 kg 74.9 kg Exam: General: Awake alert and orientedx3, no acute respiratory distress HEENT: AT/NC, PERRL, EOMI, oropharynx is moist, pink, no scleral icterus, no conjunctival injection Neck: No JVD, trachea midline Chest: Clear to auscultation bilaterally, prolonged expiratory phase CV: Regular rate and rhythm, normal S1 and S2, no rub, or gallop Abdomen: Soft, nontender to palpation, nondistended, active bowel sounds; no rebound, rigidity, or guarding Extremities: No cyanosis, clubbing or edema Neuro: Cranial nerves II through XII are grossly intact without focal deficits; awake alert and oriented x3 Psych: Normal mood and affect Results Laboratory Results: 10/08/16 06:07 10/09/16 08:31 10/09/16 08:31 Sodium 133.6 L Potassium 4.0 Chloride 102 Carbon Dioxide 23 Anion Gap 9 BUN 19 Creatinine 1.17 Est GFR ( Amer) > 60 Est GFR (Non-Af Amer) 59 L Glucose 138 H Calcium 8.4 10/02/16 10/02/16 10/02/16 11:59 11:59 11:59 Creatine Kinase 30 L CK-MB (CK-2) 3.63 Troponin I 0.443 NT-Pro-B Natriuret Pep 2280 H 10/02/16 10/02/16 10/02/16 16:41 16:41 20:25 Creatine Kinase 38 L 34 L CK-MB (CK-2) 3.41 Troponin I 0.369 NT-Pro-B Natriuret Pep 10/02/16 10/03/16 20:25 02:18 Creatine Kinase CK-MB (CK-2) 3.25 Troponin I 0.302 0.261 NT-Pro-B Natriuret Pep Impressions: Acute Abdomen Series 10/02/16 03:09 IMPRESSION: NO RADIOGRAPHIC EVIDENCE FOR ACUTE ABDOMINAL DISEASE. MODERATE FECAL RETENTION MOST NOTABLY WITHIN THE RECTAL VAULT. CORRELATE WITH PHYSICAL EXAM FOR EVIDENCE OF FECAL IMPACTION. Chest/Abdomen CTA 10/02/16 05:21 IMPRESSION: 1. No acute pulmonary embolus identified. 2. There is aneurysmal dilatation of the ascending and descending thoracic aorta as above. No dilated bronchial artery is identified to suggest bronchial artery hemorrhage. 3. There is bronchiectatic changes noted throughout the lungs, similar to prior studies most prominent in both lower lobes. There is scarring seen throughout the the lungs most notably in the dependent portions. There is some tree-in- bud and ground-glass opacities seen in the right upper lobe which could represent an area of infection/ inflammation. There is extensive centrilobular emphysematous disease noted throughout. 4. Mediastinal adenopathy with the largest lymph nodes measuring approximate 1.2 cm in AP dimension these could represent reactive adenopathy versus metastatic lymph nodes, reactive adenopathy is favored as there is no evidence of malignancy on this study. Chest X-Ray 10/08/16 06:00 IMPRESSION: COPD. Small left pleural effusion Assessment & Plan - Diagnosis (1) Acute hypercapnic respiratory failure Is this a current diagnosis for this admission?: YesPlan: We'll replace patient on BiPAP at this time. Patient has had inconsistent usage at night. Continue to use this at night. (2) Aspiration into airway Qualifiers: Encounter type: initial encounter Qualified Code(s): T17.908A - Unspecified foreign body in respiratory tract, part unspecified causing other injury, initial encounter Is this a current diagnosis for this admission?: YesPlan: Patient reports some aspiration. Concerned that patient's thoracic aortic aneurysm is causing recurrent laryngeal nerve dysfunction. Have consulted speech therapy. Patient given speech therapy notes and modified diet. (3) BPH (benign prostatic hyperplasia) Qualifiers: Prostatic enlargement morphology: unspecified morphology Lower urinary tract symptom presence: presence of symptoms unspecified Qualified Code(s ): N40.0 - Benign prostatic hyperplasia without lower urinary tract symptoms Is this a current diagnosis for this admission?: YesPlan: Have also place patient on Flomax. Continue finasteride. Patient was unable to tolerate Bains removal. Patient will need to have Bains in for 14 days. He will likely need to be discharged with this and follow-up with urology as an outpatient. (4) Bronchiectasis Qualifiers: Bronchiectasis type: with acute lower respiratory infection Qualified Code(s): J47.0 - Bronchiectasis with acute lower respiratory infection Is this a current diagnosis for this admission?: Yes (5) COPD exacerbation Is this a current diagnosis for this admission?: Yes (6) Chronic back pain Qualifiers: Back pain location: back pain in unspecified location Back pain laterality: unspecified Qualified Code(s): M54.9 - Dorsalgia, unspecified ; G89.29 - Other chronic pain Is this a current diagnosis for this admission?: Yes (7) Constipation Qualifiers: Constipation type: unspecified constipation type Qualified Code(s): K59.00 - Constipation, unspecified Is this a current diagnosis for this admission?: Yes (8) Coronary artery disease Qualifiers: Coronary Disease-Associated Artery/Lesion type: [place] artery [place] vs. transplanted heart: [place] heart Associated angina: without angina Qualified Code(s): I25.10 - Atherosclerotic heart disease of [place] coronary artery without angina pectoris Is this a current diagnosis for this admission?: Yes (9) Elevated troponin Is this a current diagnosis for this admission?: Yes (10) Hyponatremia Is this a current diagnosis for this admission?: Yes (11) Non-STEMI (non-ST elevated myocardial infarction) Is this a current diagnosis for this admission?: YesPlan: Patient with type II non-STEMI likely secondary to sepsis and renal failure. Appreciate cardiology input. Continue Ranexa. Patient currently on aspirin, and Ranexa. No Sher/ARB at this time due to presenting renal failure. Very hesitant to add a beta cedric to this patient given his severe COPD. Will judiciously add this. (12) Pneumonia Qualifiers: Pneumonia type: due to unspecified organism Laterality: right Lung location: upper lobe of lung Qualified Code(s): J18.1 - Lobar pneumonia, unspecified organism Is this a current diagnosis for this admission?: YesPlan: Continue Levaquin. Continue nebulized treatments. (13) Thoracic aortic aneurysm Qualifiers: Presence of rupture: without rupture Qualified Code(s): I71.2 - Thoracic aortic aneurysm, without rupture Is this a current diagnosis for this admission?: Yes (14) Type 2 diabetes mellitus with hyperglycemia Qualifiers: Diabetes mellitus nursing home insulin use: with nursing home use Qualified Code(s): E11.65 - Type 2 diabetes mellitus with hyperglycemia Is this a current diagnosis for this admission?: YesPlan: Patient has a hemoglobin A1c of 6.1. He is very tightly controlled. Concern for hypoglycemia in the elderly. Continue sliding scale insulin. Her blood sugars are within acceptable range. - Time Time Spent with patient: 25-34 minutes Medications reviewed and adjusted accordingly: Yes
[2016-10-10] MEDS: INSULIN REG, HUMAN 100 UNIT/ML 3 ML VIAL (PYX) SUBCUT PRN (17:29)
[2016-10-10] MEDS: TAMSULOSIN HCL 0.4 MG CAP.SR.24H PO SCH (17:29)
[2016-10-11] MEDS: LANSOPRAZOLE 30 MG TAB.RAP.DR PO SCH (05:29)
[2016-10-11] MEDS ORDERED: FLUTICASONE/SALMETEROL DISKUS 250-50 MCG/DOSE IH ONE (05:31)
[2016-10-11] MEDS: FLUTICASONE/SALMETEROL DISKUS 250-50 MCG/DOSE IH SCH ×2 (06:21→18:04)
[2016-10-11] MEDS: LEVALBUTEROL HCL NEB 1.25 MG/3 ML AMPUL NEB SCH ×3 (07:45→19:35)
[2016-10-11] MEDS: IPRATROPIUM BROMIDE 0.02% NEB 0.5 MG/2.5 ML AMPUL NEB SCH ×3 (07:45→19:35)
[2016-10-11] MEDS: DOCUSATE SODIUM 100 MG CAPSULE PO SCH ×2 (09:26→18:00)
[2016-10-11] MEDS: FINASTERIDE 5 MG TABLET PO SCH (09:26)
[2016-10-11] MEDS: FLUOXETINE HCL 20 MG CAPSULE PO SCH (09:26)
[2016-10-11] MEDS: MULTIVITS W-MIN/IRON SOLN 60 ML PO SCH (09:27)
[2016-10-11] MEDS: LEVOFLOXACIN 750 MG TABLET PO SCH (09:27)
[2016-10-11] MEDS: RANOLAZINE 500 MG TAB.SR.12H PO SCH ×2 (09:27→21:01)
[2016-10-11] MEDS: ASPIRIN 81 MG TABLET, CHEWABLE PO SCH (09:27)
[2016-10-11] MEDS: INSULIN REG, HUMAN 100 UNIT/ML 3 ML VIAL (PYX) SUBCUT PRN ×2 (18:00→23:37)
[2016-10-11] MEDS: TAMSULOSIN HCL 0.4 MG CAP.SR.24H PO SCH (18:03)
--- NOTE | 2016-10-11 21:13 | PDOC TRANSFER SUMMARY ---
General - Admit/Disc Date/PCP Admission Date/Primary Care Provider: 10/02/16 08:37 Discharge Date: 10/11/16 - Discharge Diagnosis (1) Acute hypercapnic respiratory failure Is this a current diagnosis for this admission?: Yes (2) Aspiration into airway Is this a current diagnosis for this admission?: Yes (3) Acute on chronic combined systolic (congestive) and diastolic (congestive) heart failure Is this a current diagnosis for this admission?: Yes (4) Non-STEMI (non-ST elevated myocardial infarction) Is this a current diagnosis for this admission?: Yes (5) BPH (benign prostatic hyperplasia) Is this a current diagnosis for this admission?: Yes (6) Bronchiectasis Is this a current diagnosis for this admission?: Yes (7) COPD exacerbation Is this a current diagnosis for this admission?: Yes (8) Chronic back pain Is this a current diagnosis for this admission?: Yes (9) Constipation Is this a current diagnosis for this admission?: Yes (10) Coronary artery disease Is this a current diagnosis for this admission?: Yes (11) Elevated troponin Is this a current diagnosis for this admission?: Yes (12) Hyponatremia Is this a current diagnosis for this admission?: Yes (13) Pneumonia Is this a current diagnosis for this admission?: Yes (14) Thoracic aortic aneurysm Is this a current diagnosis for this admission?: Yes (15) Type 2 diabetes mellitus with hyperglycemia Is this a current diagnosis for this admission?: Yes (16) Chronic respiratory failure with hypoxia Is this a current diagnosis for this admission?: Yes - Additional Information Resuscitation Status: Do Not Resuscitate Discharge Diet: Regular, Other (Comments) - mechanical ground, thin liquids, strict aspiration precautions Discharge Activity: Activity As Tolerated Home Medications: Acetaminophen [Tylenol 325 mg Tablet] 650 mg PO Q6HP PRN 10/02/16 Aspirin [Lo-Dose Aspirin EC] 81 mg PO DAILY 10/02/16 Bisacodyl [Dulcolax 10 mg Supp.rect] 10 mg RI DAILYP PRN 10/02/16 Finasteride [Proscar 5 mg Tablet] 5 mg PO DAILY 10/02/16 Fluoxetine HCl [Prozac 20 mg Capsule] 20 mg PO DAILY 10/02/16 Fluticasone/Salmeterol [Advair 250-50 Diskus 14 Dose/Diskus] 1 puff IH Q12 10/02 Guaifenesin [Mucinex Sr 600 mg Tablet.sa] 600 mg PO BID 10/02/16 Insulin Aspart [Novolog Insulin (Aspart) 100 unit/mL] See Protocol SQ ACHS 10/02 Insulin Glargine,Hum.rec.anlog [Lantus] 10 units SQ QHS 10/02/16 Ipratropium/Albuterol Sulfate [Iprat-Albut 0.5-3(2.5) mg/3 ml] 3 ml NEB Q6HP PRN 10/02/16 Melatonin 10 mg PO HSP PRN 10/02/16 Multivitamin [Daily Multiple Vitamin] 1 each PO DAILY 10/02/16 Polyethylene Glycol 3350 [Miralax Powder 17 gm/Packet] 17 gm PO DAILYP PRN 10/02 Umeclidinium [place] [Incruse Ellipta] 1 puff IH DAILY 10/02/16 Docusate Sodium [Colace 100 mg Capsule] 100 mg PO BID capsule 10/11/16 Ipratropium [place] [Atrovent 0.02% Neb 0.5 mg/2.5 ml Ampul] 0.5 mg NEB [id number] vial.neb 10/11/16 Lansoprazole [Prevacid 30 mg Odt Tablet] 30 mg PO Q6AM tab.rap.dr 10/11/16 Levofloxacin [Levaquin 750 mg Tablet] 750 mg PO DAILY #1 tablet 10/11/16 Multivits W-Min/Ferrous Gluc [Certavite Multivit/Minerals/Iron Soln] 5 ml PO DAILY ml 10/11/16 Ranolazine [Ranexa 500 mg Tab.sr] 500 mg PO Q12 tab.sr.12h 10/11/16 Simethicone [Mylicon 80 mg Chewable Tablet] 120 mg PO QIDP PRN tab.chew Tamsulosin HCl [Flomax 0.4 mg Cap.sr] 0.4 mg PO PCSUPPER cap.sr.24h 10/11/16 History of Present Illness Admission Date/PCP: 10/02/16 08:37 History of Present Illness: ZEFERINO URBINA is a 86 year old male, with history of chronic hypoxemic respiratory failure, COPD, bronchiectasis presents to the hospital because of shortness of breath with associated hemoptysis and cough of about 1 day duration. The patient has chronic sinus congestion intermittently. No sore throat or chills or fever associated. The patient started to develop coughing last night with hemoptysis. This was followed by shortness of breath and wheezing. Denies any chest pain at all. No palpitation or dizziness. No nausea or vomiting associated. Because of the hemoptysis the patient was sent to the emergency room for evaluation. CT of the chest revealed possible infiltrate or infection and right upper lobe. Patient was given bronchodilators and antibiotic. Patient was continued on his supplemental oxygen. His shortness of breath significantly improved. He was then referred for admission. 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 Hospital Course Hospital Course: Due to patient's CTA which revealed bronchiectasis, patient was deemed to be at high risk for Pseudomonas and initially started on cefepime and Levaquin. Patient did admit to some choking and was gradually transitioned to Levaquin and clindamycin. Clindamycin was stopped and patient was continued on Levaquin alone. Patient was evaluated by speech therapy and transition to a mechanical ground diet with thin liquids. Patient was also found on CTA to have a thoracic aortic aneurysm with some extension into the pulmonary artery. 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 Patient did have an elevation of his troponin to 0.443 and this was felt to be secondary to a type II non-STEMI due to supply demand mismatch. Ranexa was added by cardiology. Patient was evaluated by cardiology and underwent an echocardiogram on 10/02/2016 which revealed an EF of 35-40% and grade 2 diastolic dysfunction with moderate global hypokinesis of the left ventricle, mild to moderate pulmonary hypertension. Patient was started on Ranexa, aspirin , and metoprolol. Patient was found to have acute on chronic systolic and diastolic congestive heart failure. Patient responded well to Lasix but did not require this often. Patient had several episodes of hemoptysis none greater than 1 cup. These were felt to be secondary to patient's underlying bronchiectasis. 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 Overall patient did quite well, and his course was relatively unremarkable; however, on day of anticipated discharge patient was eating lunch and had small episode of choking and subsequent wheezing. He didn't feel ready for discharge at this time and this was delayed to the following day. Physical Exam Vital Signs: Temp Pulse Resp BP Pulse Ox 97.9 F 109 H 16 111/66 100 10/11/16 19:59 10/11/16 19:59 10/11/16 19:59 10/11/16 19:59 10/11/16 19:59 Intake & Output 10/10/16 10/11/16 10/12/16 06:59 06:59 06:59 Intake Total 1189 256 674 Output Total 1100 950 225 Balance 89 -694 449 Weight 74.9 kg 73.8 kg Exam: General: Awake alert and orientedx3, no acute respiratory distress HEENT: AT/NC, PERRL, EOMI, oropharynx is moist, pink, no scleral icterus, no conjunctival injection Neck: No JVD, trachea midline Chest: Bilateral end expiratory wheezes, prolonged expiratory phase CV: Regular rate and rhythm, normal S1 and S2, no rub, or gallop Abdomen: Soft, nontender to palpation, nondistended, active bowel sounds; no rebound, rigidity, or guarding Extremities: No cyanosis, clubbing or edema Neuro: Cranial nerves II through XII are grossly intact without focal deficits; awake alert and oriented x3 Psych: Normal mood and affect Results Laboratory Results: 10/10/16 08:08 10/10/16 08:08 10/02/16 10/02/16 10/02/16 11:59 11:59 11:59 Creatine Kinase 30 L CK-MB (CK-2) 3.63 Troponin I 0.443 NT-Pro-B Natriuret Pep 2280 H 10/02/16 10/02/16 10/02/16 16:41 16:41 20:25 Creatine Kinase 38 L 34 L CK-MB (CK-2) 3.41 Troponin I 0.369 NT-Pro-B Natriuret Pep 10/02/16 10/03/16 20:25 02:18 Creatine Kinase CK-MB (CK-2) 3.25 Troponin I 0.302 0.261 NT-Pro-B Natriuret Pep Impressions: Acute Abdomen Series 10/02/16 03:09 IMPRESSION: NO RADIOGRAPHIC EVIDENCE FOR ACUTE ABDOMINAL DISEASE. MODERATE FECAL RETENTION MOST NOTABLY WITHIN THE RECTAL VAULT. CORRELATE WITH PHYSICAL EXAM FOR EVIDENCE OF FECAL IMPACTION. Chest/Abdomen CTA 10/02/16 05:21 IMPRESSION: 1. No acute pulmonary embolus identified. 2. There is aneurysmal dilatation of the ascending and descending thoracic aorta as above. No dilated bronchial artery is identified to suggest bronchial artery hemorrhage. 3. There is bronchiectatic changes noted throughout the lungs, similar to prior studies most prominent in both lower lobes. There is scarring seen throughout the the lungs most notably in the dependent portions. There is some tree-in- bud and ground-glass opacities seen in the right upper lobe which could represent an area of infection/ inflammation. There is extensive centrilobular emphysematous disease noted throughout. 4. Mediastinal adenopathy with the largest lymph nodes measuring approximate 1.2 cm in AP dimension these could represent reactive adenopathy versus metastatic lymph nodes, reactive adenopathy is favored as there is no evidence of malignancy on this study. Chest X-Ray 10/08/16 06:00 IMPRESSION: COPD. Small left pleural effusion Status: Imported from PACS Transfer Plan - Time Spent with Patient Time spent with patient: Greater than 30 Minutes Qualifiers PATEINT BEING DISCHARGED WITH ANY OF THE FOLLOWING DIAGNOSIS?: Heart Failure [place] Pt being discharged on Aspirin therapy?: Yes MN Pt being discharged on Statins?: Yes MN Pt discharged ACEI/ARBS?: Yes HF Pt being discharged on ACEI for LVEF less than 40%?: Yes HF Pt being discharged on ARBS for LVEF less than 40%?: No Reason(s) for not prescribing ARBS:: Not indicated - On Sher HF Pt with Afib discharged with Warfarin?: No Reason(s) for not prescribing Warfarin:: Not indicated - No fibular HF Pt discharged on evidence-based Beta Claude?: Yes Plan Time Spent: Greater than 30 Minutes
[2016-10-12 04:38] LABS: ABSOLUTE EOSINOPHILS # (AUTO) 0.2 10^3/uL (0.0-0.6); ABSOLUTE LYMPHOCYTES (AUTO) 0.7 10^3/uL (0.5-4.7); ABSOLUTE NEUT (AUTO) 9.4 10^3/uL (1.7-8.2); BASOPHILS % (AUTO) 0.1 % (0-2); EOSINOPHILS % (AUTO) 1.6 % (0-6); HEMATOCRIT 25.8 % (37.9-51.0); HEMOGLOBIN 8.4 g/dL (13.5-17.0); HGB HCT DIFFERENCE -0.6; MEAN CORPUSCULAR HEMOGLOBIN 25.9 pg (27.0-33.4); MEAN CORPUSCULAR HGB CONC 32.5 g/dL (32.0-36.0); MEAN CORPUSCULAR VOLUME 80 fl (80-97); MONOCYTES % (AUTO) 9.2 % (3-13); RED BLOOD COUNT 3.24 10^6/uL (4.35-5.55); RED CELL DISTRIBUTION WIDTH 18.2 % (11.5-14.0); SEGMENTED NEUTROPHILS % (AUTO) 83.1 % (42-78); WHITE BLOOD COUNT 11.4 10^3/uL (4.0-10.5)
[2016-10-12 05:10] LABS: ANION GAP 6 (5-19); BLOOD UREA NITROGEN 29 mg/dL (7-20); CALCIUM 8.5 mg/dL (8.4-10.2); CARBON DIOXIDE 29 mmol/L (22-30); CHLORIDE 97 mmol/L (98-107); CREATININE RESULT 1.04 mg/dL (0.52-1.25); GLUCOSE 224 mg/dL (75-110); POTASSIUM 4.3 mmol/L (3.6-5.0)
[2016-10-12] MEDS: LANSOPRAZOLE 30 MG TAB.RAP.DR PO SCH (05:25)
[2016-10-12] MEDS: FLUTICASONE/SALMETEROL DISKUS 250-50 MCG/DOSE IH SCH ×2 (05:25→18:50)
[2016-10-12] MEDS: LEVALBUTEROL HCL NEB 1.25 MG/3 ML AMPUL NEB SCH ×3 (08:23→19:45)
[2016-10-12] MEDS: IPRATROPIUM BROMIDE 0.02% NEB 0.5 MG/2.5 ML AMPUL NEB SCH ×3 (08:23→19:45)
[2016-10-12] MEDS: METOPROLOL TARTRATE 25 MG TABLET PO SCH ×3 (08:28→22:08)
[2016-10-12] MEDS: ATORVASTATIN CALCIUM 10 MG TABLET PO SCH ×2 (08:28→22:08)
[2016-10-12] MEDS: INSULIN REG, HUMAN 100 UNIT/ML 3 ML VIAL (PYX) SUBCUT PRN (08:36)
[2016-10-12] MEDS ORDERED: TEMAZEPAM 7.5 MG CAPSULE PO PRN (09:14)
--- NOTE | 2016-10-12 09:21 | PDOC PROGRESS REPORT ---
Subjective Progress Note for:: 10/12/16 Subjective:: Patient complains of continued cough and would like a medication for this. He also complains of insomnia. He has chronic shortness of breath. Patient denies fever, chills, headache, new focal weakness, chest pain, abdominal pain, nausea , vomiting, diarrhea, constipation. Physical Exam Vital Signs: Temp Pulse Resp BP Pulse Ox 97.3 F 102 H 16 109/60 98 10/12/16 07:28 10/12/16 07:28 10/12/16 07:28 10/12/16 07:28 10/12/16 07:28 Intake & Output 10/11/16 10/12/16 10/13/16 06:59 06:59 06:59 Intake Total 256 874 Output Total 950 625 Balance -694 249 Weight 73.8 kg 74.9 kg GENERAL: No acute distress HEENT: Conjunctiva clear, nonicteric, moist mucous membranes, no JVD, midline trachea RESPIRATORY: Bilateral rhonchi CARDIAC: Regular rate and rhythm, no murmurs/gallops/rubs ABDOMEN: Soft, nondistended, nontender, positive bowel sounds, no rebound, no guarding EXTREMETIES: No edema, cyanosis, clubbing NEUROLOGIC: Alert, oriented to person/place/time, CN's grossly intact, no focal deficits SKIN: No rash, wounds PSYCH: Normal mood, normal affect Results Laboratory Results: 10/12/16 03:58 10/12/16 03:58 10/12/16 10/12/16 03:58 03:58 WBC 11.4 H RBC 3.24 L Hgb 8.4 L Hct 25.8 L MCV 80 MCH 25.9 L MCHC 32.5 RDW 18.2 H Plt Count 314 Seg Neutrophils % 83.1 H Lymphocytes % 6.0 L Monocytes % 9.2 Eosinophils % 1.6 Basophils % 0.1 Absolute Neutrophils 9.4 H Absolute Lymphocytes 0.7 Absolute Monocytes 1.0 Absolute Eosinophils 0.2 Absolute Basophils 0.0 Sodium 132.0 L Potassium 4.3 Chloride 97 L Carbon Dioxide 29 Anion Gap 6 BUN 29 H Creatinine 1.04 Est GFR ( Amer) > 60 Est GFR (Non-Af Amer) > 60 Glucose 224 H Calcium 8.5 10/02/16 10/02/16 10/02/16 11:59 11:59 11:59 Creatine Kinase 30 L CK-MB (CK-2) 3.63 Troponin I 0.443 NT-Pro-B Natriuret Pep 2280 H 10/02/16 10/02/16 10/02/16 16:41 16:41 20:25 Creatine Kinase 38 L 34 L CK-MB (CK-2) 3.41 Troponin I 0.369 NT-Pro-B Natriuret Pep 10/02/16 10/03/16 20:25 02:18 Creatine Kinase CK-MB (CK-2) 3.25 Troponin I 0.302 0.261 NT-Pro-B Natriuret Pep Impressions: Acute Abdomen Series 10/02/16 03:09 IMPRESSION: NO RADIOGRAPHIC EVIDENCE FOR ACUTE ABDOMINAL DISEASE. MODERATE FECAL RETENTION MOST NOTABLY WITHIN THE RECTAL VAULT. CORRELATE WITH PHYSICAL EXAM FOR EVIDENCE OF FECAL IMPACTION. Chest/Abdomen CTA 10/02/16 05:21 IMPRESSION: 1. No acute pulmonary embolus identified. 2. There is aneurysmal dilatation of the ascending and descending thoracic aorta as above. No dilated bronchial artery is identified to suggest bronchial artery hemorrhage. 3. There is bronchiectatic changes noted throughout the lungs, similar to prior studies most prominent in both lower lobes. There is scarring seen throughout the the lungs most notably in the dependent portions. There is some tree-in- bud and ground-glass opacities seen in the right upper lobe which could represent an area of infection/ inflammation. There is extensive centrilobular emphysematous disease noted throughout. 4. Mediastinal adenopathy with the largest lymph nodes measuring approximate 1.2 cm in AP dimension these could represent reactive adenopathy versus metastatic lymph nodes, reactive adenopathy is favored as there is no evidence of malignancy on this study. Chest X-Ray 10/12/16 06:00 IMPRESSION: No significant interval change. The previously described small left pleural effusion and associated basilar densities appear essentially unchanged. Other findings as noted above Assessment & Plan - Diagnosis (1) Acute hypercapnic respiratory failure Is this a current diagnosis for this admission?: YesPlan: Patient has chronic oxygen dependent on 2 L nasal cannula. He is currently requiring 3.5 L nasal cannula. (2) Pneumonia Qualifiers: Laterality: right Lung location: upper lobe of lung Is this a current diagnosis for this admission?: YesPlan: Patient has completed IV antibiotic. He is completing course of oral Levaquin. This is likely bacterial. (3) Acute on chronic combined systolic (congestive) and diastolic (congestive) heart failure Is this a current diagnosis for this admission?: YesPlan: Patient sounds clinically volume overloaded at this time. I will give one-time dose of IV Lasix and then start patient on Lasix 20 mg by mouth daily. (4) Aspiration into airway Qualifiers: Encounter type: initial encounter Qualified Code(s): T17.908A - Unspecified foreign body in respiratory tract, part unspecified causing other injury, initial encounter Is this a current diagnosis for this admission?: Yes (5) BPH (benign prostatic hyperplasia) Qualifiers: Prostatic enlargement morphology: unspecified morphology Lower urinary tract symptom presence: presence of symptoms unspecified Qualified Code(s ): N40.0 - Benign prostatic hyperplasia without lower urinary tract symptoms Is this a current diagnosis for this admission?: YesPlan: Continue Flomax (6) Bronchiectasis Qualifiers: Bronchiectasis type: with acute lower respiratory infection Qualified Code(s): J47.0 - Bronchiectasis with acute lower respiratory infection Is this a current diagnosis for this admission?: Yes (7) COPD exacerbation Is this a current diagnosis for this admission?: Yes (8) Chronic back pain Qualifiers: Back pain location: back pain in unspecified location Back pain laterality: unspecified Qualified Code(s): M54.9 - Dorsalgia, unspecified ; G89.29 - Other chronic pain Is this a current diagnosis for this admission?: Yes (9) Coronary artery disease Qualifiers: Coronary Disease-Associated Artery/Lesion type: [place] artery [place] vs. transplanted heart: [place] heart Associated angina: without angina Qualified Code(s): I25.10 - Atherosclerotic heart disease of [place] coronary artery without angina pectoris Is this a current diagnosis for this admission?: Yes (10) Hypertension Qualifiers: Hypertension type: essential hypertension Qualified Code(s): I10 - Essential (primary) hypertension Is this a current diagnosis for this admission?: Yes (11) Non-STEMI (non-ST elevated myocardial infarction) Is this a current diagnosis for this admission?: YesPlan: Continue aspirin, statin (12) Thoracic aortic aneurysm Qualifiers: Presence of rupture: without rupture Qualified Code(s): I71.2 - Thoracic aortic aneurysm, without rupture Is this a current diagnosis for this admission?: Yes (13) Type 2 diabetes mellitus with hyperglycemia Qualifiers: Diabetes mellitus residential insulin use: with intermediate accountant use Qualified Code(s): E11.65 - Type 2 diabetes mellitus with hyperglycemia Is this a current diagnosis for this admission?: YesPlan: Resume Lantus 10 units subcutaneous daily. Discontinue Ensure supplements and start Glucerna (14) Anemia Is this a current diagnosis for this admission?: YesPlan: Check iron studies and Hemoccults stool. I would like to see H&H stabilized [facility] - Time Time Spent with patient: 35 or more minutes Anticipated discharge: SNF Within: within 48 hours
[2016-10-12] MEDS: DOCUSATE SODIUM 100 MG CAPSULE PO SCH ×2 (09:49→18:49)
[2016-10-12] MEDS: FLUOXETINE HCL 20 MG CAPSULE PO SCH (09:50)
[2016-10-12] MEDS: FINASTERIDE 5 MG TABLET PO SCH (09:50)
[2016-10-12] MEDS: GUAIFENESIN 600 MG TABLET.SA PO SCH ×2 (09:51→18:49)
[2016-10-12] MEDS: ASPIRIN 81 MG TABLET, CHEWABLE PO SCH (09:52)
[2016-10-12] MEDS: LEVOFLOXACIN 750 MG TABLET PO SCH (09:53)
[2016-10-12] MEDS: MULTIVITS W-MIN/IRON SOLN 60 ML PO SCH (09:54)
[2016-10-12] MEDS: RANOLAZINE 500 MG TAB.SR.12H PO SCH ×2 (09:54→22:08)
[2016-10-12] MEDS: INSULIN GLARGINE,HUM.REC.ANLOG 300 UNIT/3 ML INSULN.PEN SUBCUT SCH (09:55)
[2016-10-12] MEDS ORDERED: FUROSEMIDE INJ/PF 20 MG/2 ML SDV IV ONE (10:00)
[2016-10-12] MEDS ORDERED: INSULIN GLARGINE,HUM.REC.ANLOG 1,000 UNIT/10 ML UNIT SUBCUT SCH (10:00)
[2016-10-12] MEDS ORDERED: FUROSEMIDE 20 MG TABLET PO SCH (10:00)
[2016-10-12] MEDS ORDERED: LISINOPRIL 5 MG TABLET PO SCH (10:00)
[2016-10-12 11:53] LABS: FOLATE > 20.00 ng/mL (>2.76)
[2016-10-12] MEDS: TAMSULOSIN HCL 0.4 MG CAP.SR.24H PO SCH (18:49)
[2016-10-13 04:29] LABS: ABSOLUTE EOSINOPHILS # (AUTO) 0.2 10^3/uL (0.0-0.6); ABSOLUTE LYMPHOCYTES (AUTO) 0.7 10^3/uL (0.5-4.7); ABSOLUTE NEUT (AUTO) 7.7 10^3/uL (1.7-8.2); BASOPHILS % (AUTO) 0.3 % (0-2); EOSINOPHILS % (AUTO) 2.6 % (0-6); HEMATOCRIT 26.7 % (37.9-51.0); HEMOGLOBIN 8.8 g/dL (13.5-17.0); HGB HCT DIFFERENCE -0.3; LYMPHOCYTES % (AUTO) 7.3 % (13-45); MEAN CORPUSCULAR VOLUME 79 fl (80-97); MONOCYTES % (AUTO) 10.4 % (3-13); RED BLOOD COUNT 3.39 10^6/uL (4.35-5.55); RED CELL DISTRIBUTION WIDTH 18.1 % (11.5-14.0); SEGMENTED NEUTROPHILS % (AUTO) 79.4 % (42-78); WHITE BLOOD COUNT 9.7 10^3/uL (4.0-10.5)
[2016-10-13 04:53] LABS: ANION GAP 7 (5-19); BLOOD UREA NITROGEN 33 mg/dL (7-20); CALCIUM 8.6 mg/dL (8.4-10.2); CARBON DIOXIDE 31 mmol/L (22-30); CHLORIDE 96 mmol/L (98-107); CREATININE RESULT 1.25 mg/dL (0.52-1.25); GLUCOSE 170 mg/dL (75-110); POTASSIUM 4.1 mmol/L (3.6-5.0); SODIUM 133.6 mmol/L (137-145)
[2016-10-13] MEDS: LANSOPRAZOLE 30 MG TAB.RAP.DR PO SCH (05:41)
[2016-10-13] MEDS: FLUTICASONE/SALMETEROL DISKUS 250-50 MCG/DOSE IH SCH (05:42)
[2016-10-13] MEDS: IPRATROPIUM BROMIDE 0.02% NEB 0.5 MG/2.5 ML AMPUL NEB SCH ×2 (08:38→14:04)
[2016-10-13] MEDS: LEVALBUTEROL HCL NEB 1.25 MG/3 ML AMPUL NEB SCH ×2 (08:38→14:04)
--- NOTE | 2016-10-13 09:26 | PDOC DISCHARGE SUMMARY ---
General - Admit/Disc Date/PCP Admission Date/Primary Care Provider: 10/02/16 08:37 Discharge Date: 10/13/16 - Discharge Diagnosis (1) Acute hypercapnic respiratory failure Is this a current diagnosis for this admission?: Yes (2) Pneumonia Is this a current diagnosis for this admission?: Yes (3) Acute on chronic combined systolic (congestive) and diastolic (congestive) heart failure Is this a current diagnosis for this admission?: Yes (4) Aspiration into airway Is this a current diagnosis for this admission?: Yes (5) BPH (benign prostatic hyperplasia) Is this a current diagnosis for this admission?: Yes (6) Bronchiectasis Is this a current diagnosis for this admission?: Yes (7) COPD exacerbation Is this a current diagnosis for this admission?: Yes (8) Chronic back pain Is this a current diagnosis for this admission?: Yes (9) Coronary artery disease Is this a current diagnosis for this admission?: Yes (10) Hypertension Is this a current diagnosis for this admission?: Yes (11) Non-STEMI (non-ST elevated myocardial infarction) Is this a current diagnosis for this admission?: Yes (12) Thoracic aortic aneurysm Is this a current diagnosis for this admission?: Yes (13) Type 2 diabetes mellitus with hyperglycemia Is this a current diagnosis for this admission?: Yes (14) Anemia Is this a current diagnosis for this admission?: Yes (15) Urinary retention Is this a current diagnosis for this admission?: Yes - Additional Information Resuscitation Status: Do Not Resuscitate Discharge Diet: Cardiac, Diabetic, Other (Comments) - mechanical ground, thin liquids, strict aspiration precautions, Glucerna 1 cad twice daily Discharge Activity: Activity As Tolerated Home Medications: Acetaminophen [Tylenol 325 mg Tablet] 650 mg PO Q6HP PRN 10/02/16 Aspirin [Lo-Dose Aspirin EC] 81 mg PO DAILY 10/02/16 Bisacodyl [Dulcolax 10 mg Supp.rect] 10 mg [place] DAILYP PRN 10/02/16 Finasteride [Proscar 5 mg Tablet] 5 mg PO DAILY 10/02/16 Fluoxetine HCl [Prozac 20 mg Capsule] 20 mg PO DAILY 10/02/16 Fluticasone/Salmeterol [Advair 250-50 Diskus 14 Dose/Diskus] 1 puff IH Q12 10/02 Guaifenesin [Mucinex Sr 600 mg Tablet.sa] 600 mg PO BID 10/02/16 Insulin Aspart [Novolog Insulin (Aspart) 100 unit/mL] See Protocol SQ ACHS 10/02 Insulin Glargine,Hum.rec.anlog [Lantus] 10 units SQ QHS 10/02/16 Melatonin 10 mg PO HSP PRN 10/02/16 Multivitamin [Daily Multiple Vitamin] 1 each PO DAILY 10/02/16 Polyethylene Glycol 3350 [Miralax Powder 17 gm/Packet] 17 gm PO DAILYP PRN 10/02 Umeclidinium Toney [Incruse Ellipta] 1 puff IH DAILY 10/02/16 Docusate Sodium [Colace 100 mg Capsule] 100 mg PO BID capsule 10/11/16 Lansoprazole [Prevacid 30 mg Odt Tablet] 30 mg PO Q6AM tab.rap.dr 10/11/16 Ranolazine [Ranexa 500 mg Tab.sr] 500 mg PO Q12 tab.sr.12h 10/11/16 Simethicone [Mylicon 80 mg Chewable Tablet] 120 mg PO QIDP PRN tab.chew Tamsulosin HCl [Flomax 0.4 mg Cap.sr] 0.4 mg PO PCSUPPER cap.sr.24h 10/11/16 Atorvastatin Calcium [Lipitor 10 mg Tablet] 5 mg PO QHS tablet 10/13/16 Carvedilol [Coreg 3.125 mg Tablet] 3.125 mg PO Q12 tablet 10/13/16 Furosemide [Lasix] 10 mg PO DAILY #30 tablet 10/13/16 Levalbuterol HCl [Xopenex Neb 1.25 mg/3 ml Ampul] 1.25 mg NEB RTQ2HP PRN vial.neb 10/13/16 Levalbuterol HCl [Xopenex Neb 1.25 mg/3 ml Ampul] 1.25 mg NEB [id number] vial.neb 10/13/16 Lisinopril [Prinivil 5 mg Tablet] 2.5 mg PO DAILY tablet 10/13/16 Lisinopril [Prinivil 5 mg Tablet] 2.5 mg PO DAILY tablet 10/13/16 Temazepam [Restoril 7.5 mg Capsule] 7.5 mg PO HSP PRN #10 capsule 10/13/16 History of Present Illness Patient complains of: Shortness of breath/hemoptysis History of Present Illness: ZEFERINO URBINA is a 86 year old male, with history of chronic hypoxemic respiratory failure, COPD, bronchiectasis presents to the hospital because of shortness of breath with associated hemoptysis and cough of about 1 day duration. The patient has chronic sinus congestion intermittently. No sore throat or chills or fever associated. The patient started to develop coughing last night with hemoptysis. This was followed by shortness of breath and wheezing. Denies any chest pain at all. No palpitation or dizziness. No nausea or vomiting associated. Because of the hemoptysis the patient was sent to the emergency room for evaluation. CT of the chest revealed possible infiltrate or infection and right upper lobe. Patient was given bronchodilators and antibiotic. Patient was continued on his supplemental oxygen. His shortness of breath significantly improved. He was then referred for admission. 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 Hospital Course Hospital Course: Due to patient's CTA which revealed bronchiectasis, patient was deemed to be at high risk for Pseudomonas and initially started on cefepime and Levaquin. Patient did admit to some choking and was gradually transitioned to Levaquin and clindamycin. Clindamycin was stopped and patient was continued on Levaquin alone. Patient was evaluated by speech therapy and transition to a mechanical ground diet with thin liquids. Patient was also found on CTA to have a thoracic aortic aneurysm with some extension into the pulmonary artery. 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 Patient did have an elevation of his troponin to 0.443 and this was felt to be secondary to a type II non-STEMI due to supply demand mismatch. Ranexa was added by cardiology. Patient was evaluated by cardiology and underwent an echocardiogram on 10/02/2016 which revealed an EF of 35-40% and grade 2 diastolic dysfunction with moderate global hypokinesis of the left ventricle, mild to moderate pulmonary hypertension. Patient was started on Ranexa, aspirin , lisinopril and Coreg. Patient was found to have acute on chronic systolic and diastolic congestive heart failure. Patient responded well to Lasix but did not require this often. He is discharged home on Lasix 10 mg by mouth daily. He is also discharged home on low-dose of Coreg and lisinopril. He will need to follow-up with Dr. Mathew of cardiology. Patient had several episodes of hemoptysis none greater than 1 cup. These were felt to be secondary to patient's underlying bronchiectasis. 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 Overall patient did quite well, and his course was relatively unremarkable; however, on day of anticipated discharge patient was eating lunch and had small episode of choking and subsequent wheezing. He didn't feel ready for discharge at this time and this was delayed to the following day. Patient had urinary retention this admission requiring Bains catheter placement. Anticholinergic medications were discontinued and patient is on Flomax. Bains catheter should be maintained for the next 7 days. If patient continues to have urinary retention after Bains catheter was removed he may require urology evaluation. Physical Exam Vital Signs: Temp Pulse Resp BP Pulse Ox 97.6 F 84 19 112/62 100 10/13/16 07:31 10/13/16 07:31 10/13/16 07:31 10/13/16 09:09 10/13/16 07:31 Intake & Output 10/12/16 10/13/16 10/14/16 06:59 06:59 06:59 Intake Total 874 1196 Output Total 625 2750 Balance 249 -1554 Weight 74.9 kg 74.8 kg GENERAL: No acute distress, frail, elderly HEENT: Conjunctiva clear, nonicteric, moist mucous membranes, no JVD, midline trachea RESPIRATORY: Clear to auscultation bilaterally, no wheezes, no rhonchi CARDIAC: Regular rate and rhythm, no murmurs/gallops/rubs ABDOMEN: Soft, nondistended, nontender, positive bowel sounds, no rebound, no guarding EXTREMETIES: No edema, cyanosis, clubbing NEUROLOGIC: Alert, oriented to person/place/time, CN's grossly intact, no focal deficits SKIN: No rash, wounds PSYCH: Normal mood, normal affect Results Laboratory Results: 10/13/16 04:02 10/13/16 04:02 10/12/16 10/12/16 10/13/16 03:58 03:58 04:02 WBC 9.7 RBC 3.39 L Hgb 8.8 L Hct 26.7 L MCV 79 L MCH 26.0 L MCHC 33.0 RDW 18.1 H Plt Count 309 Seg Neutrophils % 79.4 H Lymphocytes % 7.3 L Monocytes % 10.4 Eosinophils % 2.6 Basophils % 0.3 Absolute Neutrophils 7.7 Absolute Lymphocytes 0.7 Absolute Monocytes 1.0 Absolute Eosinophils 0.2 Absolute Basophils 0.0 Retic Count (auto) 2.84 Absolute Retic 0.095 Sodium Potassium Chloride Carbon Dioxide Anion Gap BUN Creatinine Est GFR ( Amer) Est GFR (Non-Af Amer) Glucose Calcium Iron 25.7 L TIBC 226 L % Saturation 11 Ferritin 80.20 Vitamin B12 571.0 Folate > 20.00 10/13/16 04:02 WBC RBC Hgb Hct MCV MCH MCHC RDW Plt Count Seg Neutrophils % Lymphocytes % Monocytes % Eosinophils % Basophils % Absolute Neutrophils Absolute Lymphocytes Absolute Monocytes Absolute Eosinophils Absolute Basophils Retic Count (auto) Absolute Retic Sodium 133.6 L Potassium 4.1 Chloride 96 L Carbon Dioxide 31 H Anion Gap 7 BUN 33 H Creatinine 1.25 Est GFR ( Amer) > 60 Est GFR (Non-Af Amer) 55 L Glucose 170 H Calcium 8.6 Iron TIBC % Saturation Ferritin Vitamin B12 Folate 10/02/16 10/02/16 10/02/16 11:59 11:59 11:59 Creatine Kinase 30 L CK-MB (CK-2) 3.63 Troponin I 0.443 NT-Pro-B Natriuret Pep 2280 H 10/02/16 10/02/16 10/02/16 16:41 16:41 20:25 Creatine Kinase 38 L 34 L CK-MB (CK-2) 3.41 Troponin I 0.369 NT-Pro-B Natriuret Pep 10/02/16 10/03/16 20:25 02:18 Creatine Kinase CK-MB (CK-2) 3.25 Troponin I 0.302 0.261 NT-Pro-B Natriuret Pep Labs- Last Values WBC 9.7 10^3/uL (4.0-10.5) 10/13/16 04:02 RBC 3.39 10^6/uL (4.35-5.55) L 10/13/16 04:02 Hgb 8.8 g/dL (13.5-17.0) L 10/13/16 04:02 Hct 26.7 % (37.9-51.0) L 10/13/16 04:02 MCV 79 fl (80-97) L 10/13/16 04:02 MCH 26.0 pg (27.0-33.4) L 10/13/16 04:02 MCHC 33.0 g/dL (32.0-36.0) 10/13/16 04:02 RDW 18.1 % (11.5-14.0) H 10/13/16 04:02 Plt Count 309 10^3/uL (150-450) 10/13/16 04:02 Seg Neutrophils % 79.4 % (42-78) H 10/13/16 04:02 Lymphocytes % 7.3 % (13-45) L 10/13/16 04:02 Monocytes % 10.4 % (3-13) 10/13/16 04:02 Eosinophils % 2.6 % (0-6) 10/13/16 04:02 Basophils % 0.3 % (0-2) 10/13/16 04:02 Absolute Neutrophils 7.7 10^3/uL (1.7-8.2) 10/13/16 04:02 Absolute Lymphocytes 0.7 10^3/uL (0.5-4.7) 10/13/16 04:02 Absolute Monocytes 1.0 10^3/uL (0.1-1.4) 10/13/16 04:02 Absolute Eosinophils 0.2 10^3/uL (0.0-0.6) 10/13/16 04:02 Absolute Basophils 0.0 10^3/uL (0.0-0.2) 10/13/16 04:02 Retic Count (auto) 2.84 % (0.66-2.85) 10/12/16 03:58 Absolute Retic 0.095 10^6/uL (0.028-0.122) 10/12/16 03:58 PT 14.7 SEC (11.4-15.4) 10/08/16 06:07 INR 1.11 10/08/16 06:07 APTT 45.6 SEC (23.5-35.8) H 10/08/16 06:07 Carbonic Acid 2.70 mmol/L (1.05-1.35) H 10/03/16 17:55 HCO3/H2CO3 Ratio 8:1 10/03/16 17:55 ABG pH 7.02 (7.35-7.45) L* 10/03/16 17:55 ABG pCO2 89.7 mmHg (35-45) H* 10/03/16 17:55 ABG pO2 76.9 mmHg (80-100) L 10/03/16 17:55 ABG HCO3 22.6 mmol/L (20-26) 10/03/16 17:55 ABG Total CO2 25.4 mmol/L (23-27) 10/03/16 17:55 ABG O2 Saturation 86.8 % (94-98) L 10/03/16 17:55 ABG Base Excess -9.4 mmol/L 10/03/16 17:55 VBG pH 7.29 (7.30-7.42) L 10/02/16 02:51 VBG pCO2 57.5 mmHg (35-63) 10/02/16 02:51 VBG HCO3 26.9 mmol/L (20-32) 10/02/16 02:51 VBG Base Excess -0.9 mmol/L 10/02/16 02:51 FiO2 4L 10/03/16 17:55 Sodium 133.6 mmol/L (137-145) L 10/13/16 04:02 Potassium 4.1 mmol/L (3.6-5.0) 10/13/16 04:02 Chloride 96 mmol/L (98-107) L 10/13/16 04:02 Carbon Dioxide 31 mmol/L (22-30) H 10/13/16 04:02 Anion Gap 7 (5-19) 10/13/16 04:02 BUN 33 mg/dL (7-20) H 10/13/16 04:02 Creatinine 1.25 mg/dL (0.52-1.25) 10/13/16 04:02 Est GFR ( Amer) > 60 (>60) 10/13/16 04:02 Est GFR (Non-Af Amer) 55 (>60) L 10/13/16 04:02 Glucose 170 mg/dL (75-110) H 10/13/16 04:02 POC Glucose 177 mg/dL (70-110) H 10/13/16 05:18 Hemoglobin A1c % 6.1 % (4.7-6.0) H 10/03/16 02:18 Calcium 8.6 mg/dL (8.4-10.2) 10/13/16 04:02 Magnesium 1.9 mg/dL (1.6-2.3) 10/08/16 06:07 Iron 25.7 ug/dL (49-181) L 10/12/16 03:58 TIBC 226 ug/dL (250-450) L 10/12/16 03:58 % Saturation 11 % 10/12/16 03:58 Ferritin 80.20 ng/mL (17.9-464.0) 10/12/16 03:58 Total Bilirubin 0.5 mg/dL (0.2-1.3) 10/08/16 06:07 Direct Bilirubin 0.0 mg/dL (0.0-0.3) 10/08/16 06:07 AST 16 U/L (17-59) L 10/08/16 06:07 ALT 26 U/L (21-72) 10/08/16 06:07 Alkaline Phosphatase 68 U/L (38-126) 10/08/16 06:07 Creatine Kinase 34 U/L (55-170) L 10/02/16 20:25 CK-MB (CK-2) 3.25 ng/mL (<4.55) 10/02/16 20:25 Troponin I 0.261 ng/mL 10/03/16 02:18 NT-Pro-B Natriuret Pep 2280 pg/mL (<450) H 10/02/16 11:59 Total Protein 6.3 g/dL (6.3-8.2) 10/08/16 06:07 Albumin 3.0 g/dL (3.5-5.0) L 10/08/16 06:07 Prealbumin 8.9 mg/dL (17.6-36.0) L 10/08/16 06:07 Vitamin B12 571.0 pg/mL (239-931) 10/12/16 03:58 Folate > 20.00 ng/mL (>2.76) 10/12/16 03:58 Stool Occult Blood NEGATIVE (NEGATIVE) 10/02/16 03:05 Impressions: Acute Abdomen Series 10/02/16 03:09 IMPRESSION: NO RADIOGRAPHIC EVIDENCE FOR ACUTE ABDOMINAL DISEASE. MODERATE FECAL RETENTION MOST NOTABLY WITHIN THE RECTAL VAULT. CORRELATE WITH PHYSICAL EXAM FOR EVIDENCE OF FECAL IMPACTION. Chest/Abdomen CTA 10/02/16 05:21 IMPRESSION: 1. No acute pulmonary embolus identified. 2. There is aneurysmal dilatation of the ascending and descending thoracic aorta as above. No dilated bronchial artery is identified to suggest bronchial artery hemorrhage. 3. There is bronchiectatic changes noted throughout the lungs, similar to prior studies most prominent in both lower lobes. There is scarring seen throughout the the lungs most notably in the dependent portions. There is some tree-in- bud and ground-glass opacities seen in the right upper lobe which could represent an area of infection/ inflammation. There is extensive centrilobular emphysematous disease noted throughout. 4. Mediastinal adenopathy with the largest lymph nodes measuring approximate 1.2 cm in AP dimension these could represent reactive adenopathy versus metastatic lymph nodes, reactive adenopathy is favored as there is no evidence of malignancy on this study. Chest X-Ray 10/12/16 06:00 IMPRESSION: No significant interval change. The previously described small left pleural effusion and associated basilar densities appear essentially unchanged. Other findings as noted above Qualifiers PATEINT BEING DISCHARGED WITH ANY OF THE FOLLOWING DIAGNOSIS?: Heart Failure MD Pt being discharged on Aspirin therapy?: Yes MD Pt being discharged on Statins?: Yes MD Pt discharged ACEI/ARBS?: Yes HF Pt being discharged on ACEI for LVEF less than 40%?: Yes HF Pt being discharged on ARBS for LVEF less than 40%?: No Reason(s) for not prescribing ARBS:: Not indicated - On Sher HF Pt with Afib discharged with Warfarin?: No Reason(s) for not prescribing Warfarin:: Not indicated - No fibular HF Pt discharged on evidence-based Beta Claude?: Yes Plan Time Spent: Greater than 30 Minutes
[2016-10-13] MEDS: FLUOXETINE HCL 20 MG CAPSULE PO SCH (09:52)
[2016-10-13] MEDS: GUAIFENESIN 600 MG TABLET.SA PO SCH (09:52)
[2016-10-13] MEDS: ASPIRIN 81 MG TABLET, CHEWABLE PO SCH (09:53)
[2016-10-13] MEDS: DOCUSATE SODIUM 100 MG CAPSULE PO SCH (09:53)
[2016-10-13] MEDS: FINASTERIDE 5 MG TABLET PO SCH (09:53)
[2016-10-13] MEDS: RANOLAZINE 500 MG TAB.SR.12H PO SCH (09:54)
[2016-10-13] MEDS: MULTIVITS W-MIN/IRON SOLN 60 ML PO SCH (09:54)
[2016-10-13] MEDS: INSULIN GLARGINE,HUM.REC.ANLOG 300 UNIT/3 ML INSULN.PEN SUBCUT SCH (09:54)
[2016-10-13] MEDS ORDERED: CARVEDILOL 3.125 MG TABLET PO SCH (10:00)
[2016-10-13] MEDS ORDERED: METOPROLOL SUCCINATE 25 MG TAB.SR.24H PO SCH (10:00)
[2016-10-13] MEDS ORDERED: FUROSEMIDE 20 MG TABLET PO SCH (10:00)
[2016-10-13] MEDS ORDERED: LISINOPRIL 5 MG TABLET PO SCH (10:00)
[2016-10-13 11:51] VITALS: BP 95/55
[2016-10-13] MEDS: INSULIN REG, HUMAN 100 UNIT/ML 3 ML VIAL (PYX) SUBCUT PRN (13:03)
== END 2016-10-13 15:25 | DRG 190 ==
LOC: ER 02:34 → UNDOADMIN 08:20 → EH 08:20 → 3N 12:44
PROC: 3E0F73Z Introduction of Anti-inflammatory into Respiratory Tract, Via Natural or Artificial Opening (ICD-10-PCS; 2016-10-02)
PROC: 5A09357 Assistance with Respiratory Ventilation, Less than 24 Consecutive Hours, Continuous Positive Airway Pressure (ICD-10-PCS; principal; 2016-10-03)
DX: J44.0 Chronic obstructive pulmonary disease with (acute) lower respiratory infection (principal); J96.02 Acute respiratory failure with hypercapnia; I50.43 Acute on chronic combined systolic (congestive) and diastolic (congestive) heart failure; I21.4 Non-ST elevation (NSTEMI) myocardial infarction; J18.1 Lobar pneumonia, unspecified organism; J96.21 Acute and chronic respiratory failure with hypoxia; E87.1 Hypo-osmolality and hyponatremia; J44.1 Chronic obstructive pulmonary disease with (acute) exacerbation; I11.0 Hypertensive heart disease with heart failure; N40.0 Benign prostatic hyperplasia without lower urinary tract symptoms; G89.29 Other chronic pain; M54.9 Dorsalgia, unspecified; I25.10 Atherosclerotic heart disease of native coronary artery without angina pectoris; I71.2 Thoracic aortic aneurysm, without rupture; E11.65 Type 2 diabetes mellitus with hyperglycemia; D64.9 Anemia, unspecified; R33.9 Retention of urine, unspecified; F19.959 Other psychoactive substance use, unspecified with psychoactive substance-induced psychotic disorder, unspecified; K59.00 Constipation, unspecified; I27.2 Other secondary pulmonary hypertension; J45.909 Unspecified asthma, uncomplicated; E78.5 Hyperlipidemia, unspecified; M19.90 Unspecified osteoarthritis, unspecified site; F32.9 Major depressive disorder, single episode, unspecified; I45.10 Unspecified right bundle-branch block; E87.5 Hyperkalemia; T17.908A Unspecified foreign body in respiratory tract, part unspecified causing other injury, initial encounter; R59.0 Localized enlarged lymph nodes; F41.9 Anxiety disorder, unspecified; E78.00 Pure hypercholesterolemia, unspecified; Z86.14 Personal history of Methicillin resistant Staphylococcus aureus infection; Z66 Do not resuscitate; Z86.718 Personal history of other venous thrombosis and embolism; Z88.8 Allergy status to other drugs, medicaments and biological substances; Z79.82 Long term (current) use of aspirin; Z79.4 Long term (current) use of insulin; Z79.899 Other long term (current) drug therapy; Z87.891 Personal history of nicotine dependence; Z80.9 Family history of malignant neoplasm, unspecified; Z83.3 Family history of diabetes mellitus
CPT/HCPCS: 36415; 71010; 71020; 71275; 74022; 80048; 80053; 82272; 82550; 82553; 82607; 82728; 82746; 82803; 82962; 83036; 83540; 83550; 83735; 83880; 84134; 84484; 85025; 85027; 85045; 85610; 85730; 87040; 87070; 87077; 87205; 93005; 93010; 93306; 94660; 94667; 94799; 99285; G8978-GP; G8979-GP; G8996-GN; G8997-GN; G8998-GN; J0692; J1650; J1815; J1940; J1956; J2405; J3475; J3490; J7030; J7620

== ENCOUNTER 2016-10-28 18:38 | Emergency (ER) | payer MEDICARE, MEDICAID ==
--- NOTE | 2016-10-28 18:55 | ER Document Report ---
ED Blood Sugar Problem - General Stated Complaint: BLOOD SUGAR CONCERNS Time seen by provider: 18:53 Mode of Arrival: Medic Information source: Emergency Med Personnel TRAVEL OUTSIDE OF THE [place] IN LAST 30 DAYS: No - HPI Patient complains to provider of: low blood sugar Onset: Just prior to arrival Onset/Duration: Sudden Quality of pain: No pain Notes: Patient is an 86-year-old male sent from local [facility] for low blood sugar and decreased level of consciousness that was noted just prior to arrival, apparently patient did not eat dinner, he also did not he seemed to be doing okay, when staff members checked on him a short while later they found him in his room, on responsive and diaphoretic, they administered glucagon and oral glucose, when EMS arrived his initial blood sugar was 33, they administered D50 via IV, and his blood sugar went up to 172, at time of my initial evaluation patient is awake, alert, has no complaints, our initial blood sugar is 135 - Related Data Allergies/Adverse Reactions: cortisone [Cortisone] Allergy (Intermediate, Verified 10/28/16 19:07) Abnormal behavior lisinopril Allergy (Verified 10/28/16 19:07) cuco inhibitor Allergy (Uncoded 10/28/16 19:08) Past Medical History - General Information source: Patient - Social History Smoking Status: Unknown if Ever Smoked Family History: Reviewed & Not Pertinent, DM, Malignancy - Past Medical History Cardiac Medical History: Reports: Hx Hypercholesterolemia, Hx Hypertension Pulmonary Medical History: Reports: Hx Asthma, Hx Bronchitis, Hx COPD, Hx Pneumonia Denies: Hx Tuberculosis Endocrine Medical History: Reports: Hx Diabetes Mellitus Type 1, Hx Diabetes Mellitus Type 2 Renal/ Medical History: Reports: Hx Kidney Stones Musculoskeltal Medical History: Reports Hx Arthritis Skin Medical History: Reports Hx MRSA Psychiatric Medical History: Reports: Hx Anxiety, Hx Depression Past Surgical History: Reports: Hx Tonsillectomy, Hx Urinary Tract Surgery - Immunizations Hx Diphtheria, Pertussis, Tetanus Vaccination: No Hx Pneumococcal Vaccination: 09/22/12 Review of Systems - Review of Systems Constitutional: No symptoms reported EENT: No symptoms reported Cardiovascular: No symptoms reported Respiratory: No symptoms reported Gastrointestinal: No symptoms reported Genitourinary: No symptoms reported Male Genitourinary: No symptoms reported Musculoskeletal: No symptoms reported Skin: No symptoms reported Hematologic/Lymphatic: No symptoms reported Neurological/Psychological: No symptoms reported -: Yes All other systems reviewed and negative Physical Exam - Vital signs Vitals: Temp Pulse Resp BP Pulse Ox 97.4 F 77 16 124/63 91 L 10/28/16 18:47 10/28/16 18:47 10/28/16 18:47 10/28/16 18:47 10/28/16 18:47 Interpretation: Normal - General General appearance: Appears well, Alert - HEENT Head: Normocephalic, Atraumatic Eyes: Normal Pupils: PERRL - Respiratory Respiratory status: No respiratory distress Chest status: Nontender Breath sounds: Normal Chest palpation: Normal - Cardiovascular Rhythm: Regular Heart sounds: Normal auscultation Murmur: No - Abdominal Inspection: Normal Distension: No distension Bowel sounds: Normal Tenderness: Nontender Organomegaly: No organomegaly - Back Back: Normal, Nontender - Extremities General upper extremity: Normal inspection, Nontender, Normal color, Normal ROM , Normal temperature General lower extremity: Normal inspection, Nontender, Normal color, Normal ROM , Normal temperature, Normal weight bearing. No: Navdeep's sign - Neurological Neuro grossly intact: Yes Cognition: Normal, Confused Orientation: Disoriented to events [place] Coma Scale Eye Opening: Spontaneous [place] Coma Scale Verbal: Confused [place] Coma Scale Motor: Obeys Commands [place] Coma Scale Total: 14 Speech: Normal Motor strength normal: LUE, RUE, LLE, RLE Sensory: Normal - Psychological Associated symptoms: Normal affect, Normal mood - Skin Skin Temperature: Warm Skin Moisture: Dry Skin Color: Normal Course - Re-evaluation Re-evalutation: 10/29/16 04:19 Patient is resting comfortably with stable vital signs, a he was sent from the jail for a low blood sugar, his blood sugars are now stabilized and he has eaten something in the emergency room, he is noted to have leukocytosis and a urinary tract infection, he was started on antibiotics for this, but since patient is otherwise stable with no complaints he will be discharged back to the jail with a prescription for antibiotics, and advised to follow-up with his primary care provider or return if symptoms worsen, patient acknowledges understanding and agreement with this plan - Vital Signs Vital signs: Temp Pulse Resp BP Pulse Ox 97.3 F 81 16 131/75 H 98 10/29/16 03:30 10/29/16 03:30 10/29/16 03:30 10/29/16 03:30 10/29/16 03:30 - Laboratory Result Diagrams: 10/28/16 21:00 10/28/16 21:00 Laboratory results interpreted by me: 10/28/16 10/28/16 10/28/16 18:52 19:45 21:00 WBC 18.5 H RBC 3.99 L Hgb 9.9 L Hct 31.8 L MCH 24.7 L MCHC 31.1 L RDW 17.1 H Seg Neutrophils % 87.9 H Lymphocytes % 5.9 L Absolute Neutrophils 16.3 H Carbon Dioxide BUN Glucose POC Glucose 135 H 145 H ALT Albumin Urine Protein Urine Glucose (UA) Urine Ketones Urine Blood Ur Leukocyte Esterase Urine Ascorbic Acid 10/28/16 10/28/16 10/29/16 21:00 23:34 02:05 WBC RBC Hgb Hct MCH MCHC RDW Seg Neutrophils % Lymphocytes % Absolute Neutrophils Carbon Dioxide 31 H BUN 26 H Glucose 135 H POC Glucose 232 H ALT 16 L Albumin 3.2 L Urine Protein 100 H Urine Glucose (UA) 50 H Urine Ketones TRACE H Urine Blood MODERATE H Ur Leukocyte Esterase LARGE H Urine Ascorbic Acid 40 H 10/29/16 03:23 WBC RBC Hgb Hct MCH MCHC RDW Seg Neutrophils % Lymphocytes % Absolute Neutrophils Carbon Dioxide BUN Glucose POC Glucose 180 H ALT Albumin Urine Protein Urine Glucose (UA) Urine Ketones Urine Blood Ur Leukocyte Esterase Urine Ascorbic Acid - Diagnostic Test Radiology reviewed: Image reviewed, Reports reviewed Discharge - Discharge Clinical Impression: Hypoglycemia Urinary tract infection Qualifiers: Urinary tract infection type: site unspecified Hematuria presence: without hematuria Qualified Code(s): N39.0 - Urinary tract infection, site not specified Condition: Stable Disposition: HOME, SELF-CARE Instructions: Urinary Tract Infection ([facility]), Hypoglycemia ([facility]) Additional Instructions: Follow up with your primary care provider in one to 2 days. Return to the emergency room immediately if symptoms worsen or any additional concerns. Prescriptions: Cephalexin Monohydrate [Keflex 500 mg Capsule] 500 mg PO BID #20 capsule
[2016-10-28 21:12] LABS: ABSOLUTE EOSINOPHILS # (AUTO) 0.1 10^3/uL (0.0-0.6); ABSOLUTE LYMPHOCYTES (AUTO) 1.1 10^3/uL (0.5-4.7); ABSOLUTE NEUT (AUTO) 16.3 10^3/uL (1.7-8.2); BASOPHILS % (AUTO) 0.2 % (0-2); EOSINOPHILS % (AUTO) 0.7 % (0-6); HEMATOCRIT 31.8 % (37.9-51.0); HEMOGLOBIN 9.9 g/dL (13.5-17.0); HGB HCT DIFFERENCE -2.1; LYMPHOCYTES % (AUTO) 5.9 % (13-45); MEAN CORPUSCULAR HEMOGLOBIN 24.7 pg (27.0-33.4); MEAN CORPUSCULAR HGB CONC 31.1 g/dL (32.0-36.0); MEAN CORPUSCULAR VOLUME 80 fl (80-97); MONOCYTES % (AUTO) 5.3 % (3-13); RED BLOOD COUNT 3.99 10^6/uL (4.35-5.55); RED CELL DISTRIBUTION WIDTH 17.1 % (11.5-14.0); SEGMENTED NEUTROPHILS % (AUTO) 87.9 % (42-78); WHITE BLOOD COUNT 18.5 10^3/uL (4.0-10.5)
[2016-10-28 21:46] LABS: ALANINE AMINOTRANSFERASE 16 U/L (21-72); ALBUMIN 3.2 g/dL (3.5-5.0); ALKALINE PHOSPHATASE 74 U/L (38-126); ANION GAP 8 (5-19); ASPARTATE AMINO TRANSFERASE 17 U/L (17-59); BILIRUBIN,TOTAL 0.5 mg/dL (0.2-1.3); BLOOD UREA NITROGEN 26 mg/dL (7-20); CALCIUM 9.2 mg/dL (8.4-10.2); CARBON DIOXIDE 31 mmol/L (22-30); CHLORIDE 98 mmol/L (98-107); CREATININE RESULT 1.01 mg/dL (0.52-1.25); GLUCOSE 135 mg/dL (75-110); POTASSIUM 4.6 mmol/L (3.6-5.0); SODIUM 137.4 mmol/L (137-145); TOTAL PROTEIN 6.8 g/dL (6.3-8.2)
[2016-10-29 02:23] LABS: APPEARANCE,URINE CLOUDY; BILIRUBIN,URINE NEGATIVE (NEGATIVE); GLUCOSE, URINE 50 mg/dL (NEGATIVE); KETONES,URINE TRACE mg/dL (NEGATIVE); LEUKOCYTE ESTERASE,URINE LARGE (NEGATIVE); NITRITE,URINE NEGATIVE (NEGATIVE); PROTEIN,URINE 100 mg/dL (NEGATIVE); URINE SPECIFIC GRAVITY 1.019; UROBILINOGEN,URINE NEGATIVE mg/dL (<2.0)
[2016-10-29] MEDS ORDERED: CEPHALEXIN 500 MG CAPSULE PO ONE (02:31)
[2016-10-29 03:37] VITALS: BP 131/75
== END 2016-10-29 04:53 | disposition home or self-care (01) ==
LOC: ER 18:38
DX: N39.0 Urinary tract infection, site not specified (principal); E16.2 Hypoglycemia, unspecified
CPT/HCPCS: 99285; 36415; 82962; 85025; 80053; 81001; 71020; A9270

== ENCOUNTER 2017-02-12 11:14 | Emergency (ER) | payer MEDICARE, MEDICAID ==
--- NOTE | 2017-02-12 11:33 | ER Document Report ---
ED General - General Stated Complaint: NO APPETITE Time Seen by Provider: 02/12/17 11:32 Mode of Arrival: Medic Information source: Patient, Emergency Med Personnel, Outside Facility Records TRAVEL OUTSIDE OF THE [place] IN LAST 30 DAYS: No - HPI Patient complains to provider of: CHOKING EPISODE & S.O.B. THIS AM Onset: This morning Onset/Duration: Sudden Quality of pain: No pain Severity: Moderate Context: ONSET WHILE EATING, SAYS FOOD WAS DISTASTEFUL & MADE HIM CHOKE. Associated symptoms: None Exacerbated by: Denies Relieved by: Denies, Other - BETTER W/ TIME Similar symptoms previously: Yes Recently seen / treated by doctor: No - Related Data Allergies/Adverse Reactions: cortisone [Cortisone] Allergy (Intermediate, Verified 02/12/17 11:55) Abnormal behavior lisinopril Allergy (Verified 02/12/17 11:55) cuco inhibitor Allergy (Uncoded 02/12/17 11:55) Past Medical History - General Information source: Patient, Emergency Med Personnel - Social History Smoking Status: Former Smoker Cigarette use (# per day): No Chew tobacco use (# tins/day): No Frequency of alcohol use: None Drug Abuse: None Lives with: [facility] Family History: Reviewed & Not Pertinent, DM, Malignancy Patient has suicidal ideation: No Patient has homicidal ideation: No - Past Medical History Cardiac Medical History: Reports: Hx Hypercholesterolemia, Hx Hypertension Pulmonary Medical History: Reports: Hx Asthma, Hx Bronchitis, Hx COPD, Hx Pneumonia Denies: Hx Tuberculosis Neurological Medical History: Reports: None Endocrine Medical History: Reports: Hx Diabetes Mellitus Type 1, Hx Diabetes Mellitus Type 2 Renal/ Medical History: Reports: Hx Kidney Stones. Denies: Hx Peritoneal Dialysis Malignancy Medical History: Reports None GI Medical History: Reports: None Musculoskeltal Medical History: Reports Hx Arthritis Skin Medical History: Reports Hx MRSA Psychiatric Medical History: Reports: Hx Anxiety, Hx Depression Past Surgical History: Reports: Hx Tonsillectomy, Hx Urinary Tract Surgery - Immunizations Hx Diphtheria, Pertussis, Tetanus Vaccination: No Hx Pneumococcal Vaccination: 09/22/12 Review of Systems - Review of Systems Constitutional: denies: Chills, Fever EENT: No symptoms reported Cardiovascular: No symptoms reported Respiratory: See HPI Gastrointestinal: No symptoms reported Genitourinary: No symptoms reported Musculoskeletal: No symptoms reported Skin: No symptoms reported Neurological/Psychological: No symptoms reported Physical Exam - Vital signs Vitals: BP 101/57 L 02/12/17 11:28 Interpretation: Hypotensive, Hypoxic, Tachypneic. No: Tachycardic - General General appearance: Appears well, Alert In distress: None - HEENT Head: Normocephalic Eyes: Pale conjunctiva Ears: Normal Nasal: Normal Mouth/Lips: Other - EDENTULOUS Mucous membranes: Normal Neck: Normal - Respiratory Respiratory status: No respiratory distress Chest status: Nontender Breath sounds: Rales - FEW, LLL - Cardiovascular Rhythm: Regular Heart sounds: Normal auscultation Murmur: No - Abdominal Inspection: Normal Distension: Other - SCAPHOID Bowel sounds: Normal - Back Back: Normal - Extremities General upper extremity: Normal inspection General lower extremity: Normal inspection - Neurological Neuro grossly intact: Yes Cognition: Normal Orientation: AAOx4 - Psychological Associated symptoms: Normal affect, Normal mood - Skin Skin Temperature: Warm Skin Moisture: Dry Skin Color: Normal Skin Turgor: Elastic Course - Re-evaluation Re-evalutation: 02/12/17 17:11 Patient has no particular complaint at this time. His stay in the emergency department, his oxygen saturation remained in the low 90s as long as he was on supplemental oxygen. 4 and was given a hamburger to eat, and ate it without any difficulty swallowing. His chest x-ray showed COPD but no acute disease. His respiratory status appears to be stable. Primary problem appears to be one of malnutrition. Will need to be addressed by his care facility and his primary care medical provider. States he had a full set of dentures, but lost them when he moved to the facility and would like to get a new set. - Vital Signs Vital signs: Temp Pulse Resp BP Pulse Ox 98.2 F 80 23 H 110/64 95 02/12/17 11:46 02/12/17 11:46 02/12/17 16:01 02/12/17 16:00 02/12/17 16:01 - Laboratory Result Diagrams: 02/12/17 11:37 02/12/17 11:37 Laboratory results interpreted by me: 02/12/17 02/12/17 02/12/17 11:37 11:37 11:37 RBC 3.97 L Hgb 9.1 L Hct 30.1 L MCV 76 L MCH 22.9 L MCHC 30.2 L RDW 17.5 H Seg Neutrophils % 83.1 H Lymphocytes % 7.6 L Absolute Neutrophils 8.3 H VBG HCO3 34.4 H Sodium 135.3 L Potassium 5.1 H Chloride 96 L Carbon Dioxide 32 H BUN 33 H Creatinine 1.27 H Est GFR (Non-Af Amer) 54 L Glucose 241 H Calcium 8.1 L ALT 14 L Albumin 2.7 L Urine Protein Ur Leukocyte Esterase Urine Ascorbic Acid 02/12/17 12:08 RBC Hgb Hct MCV MCH MCHC RDW Seg Neutrophils % Lymphocytes % Absolute Neutrophils VBG HCO3 Sodium Potassium Chloride Carbon Dioxide BUN Creatinine Est GFR (Non-Af Amer) Glucose Calcium ALT Albumin Urine Protein 30 H Ur Leukocyte Esterase TRACE H Urine Ascorbic Acid 40 H - Diagnostic Test Radiology reviewed: Image reviewed, Reports reviewed - EKG Interpretation by Me EKG shows normal: Sinus rhythm, Intervals. abnormal: Donovan, QRS Complexes Rate: Normal Rhythm: NSR Donovan/QRS: Left axis deviation, RBBB, LAHB/LAFB Discharge - Discharge Clinical Impression: Malnutrition COPD (chronic obstructive pulmonary disease) Qualifiers: COPD type: unspecified COPD Qualified Code(s): J44.9 - Chronic obstructive pulmonary disease, unspecified Anemia Qualifiers: Anemia type: unspecified type Qualified Code(s): D64.9 - Anemia, unspecified Condition: Stable Disposition: ICF Additional Instructions: CONTINUE USUAL MEDS. YOUR PRIMARY PROBLEM APPEARS TO BE MALNUTRITION DUE TO INADEQUATE DIETARY INTAKE. YOU NEED TO: CONSULT WITH YOUR DENTIST ABOUT GETTING ANOTHER SET OF DENTURES. CONSULT WITH YOUR PRIMARY CARE MEDICAL PROVIDER ABOUT GETTING A SWALLOWING STUDY. CONSULT WITH THE RN FACULTY AT [facility] ABOUT A MORE PALATABLE DIET. PLEASE RETURN TO E.R. IF YOU GET WORSE, OR IF ANY NEW ISSUES ARISE. Referrals: SHAISTA FREED MD [Primary Care Provider] - Follow up as needed
[2017-02-12 12:02] LABS: ABSOLUTE EOSINOPHILS # (AUTO) 0.1 10^3/uL (0.0-0.6); ABSOLUTE LYMPHOCYTES (AUTO) 0.8 10^3/uL (0.5-4.7); ABSOLUTE MONOCYTES (AUTO) 0.8 10^3/uL (0.1-1.4); ABSOLUTE NEUT (AUTO) 8.3 10^3/uL (1.7-8.2); BASOPHILS % (AUTO) 0.3 % (0-2); EOSINOPHILS % (AUTO) 1.2 % (0-6); HEMATOCRIT 30.1 % (37.9-51.0); HEMOGLOBIN 9.1 g/dL (13.5-17.0); HGB HCT DIFFERENCE -2.8; LYMPHOCYTES % (AUTO) 7.6 % (13-45); MEAN CORPUSCULAR HEMOGLOBIN 22.9 pg (27.0-33.4); MEAN CORPUSCULAR HGB CONC 30.2 g/dL (32.0-36.0); MEAN CORPUSCULAR VOLUME 76 fl (80-97); MONOCYTES % (AUTO) 7.8 % (3-13); RED BLOOD COUNT 3.97 10^6/uL (4.35-5.55); RED CELL DISTRIBUTION WIDTH 17.5 % (11.5-14.0); SEGMENTED NEUTROPHILS % (AUTO) 83.1 % (42-78)
[2017-02-12 12:04] LABS: VENOUS BLOOD BASE EXCESS 7.4 mmol/L; VENOUS BLOOD HCO3 34.4 mmol/L (20-32); VENOUS BLOOD PCO2 60.1 mmHg (35-63); VENOUS BLOOD PH 7.38 (7.30-7.42)
[2017-02-12 12:22] LABS: ALANINE AMINOTRANSFERASE 14 U/L (21-72); ALBUMIN 2.7 g/dL (3.5-5.0); ALKALINE PHOSPHATASE 117 U/L (38-126); ANION GAP 7 (5-19); ASPARTATE AMINO TRANSFERASE 18 U/L (17-59); BILIRUBIN,DIRECT 0.4 mg/dL (0.0-0.4); BILIRUBIN,TOTAL 0.4 mg/dL (0.2-1.3); BLOOD UREA NITROGEN 33 mg/dL (7-20); CALCIUM 8.1 mg/dL (8.4-10.2); CARBON DIOXIDE 32 mmol/L (22-30); CHLORIDE 96 mmol/L (98-107); CREATININE RESULT 1.27 mg/dL (0.52-1.25); GLUCOSE 241 mg/dL (75-110); POTASSIUM 5.1 mmol/L (3.6-5.0); SODIUM 135.3 mmol/L (137-145); TOTAL PROTEIN 6.8 g/dL (6.3-8.2)
[2017-02-12 12:26] LABS: APPEARANCE,URINE CLEAR; BILIRUBIN,URINE NEGATIVE (NEGATIVE); GLUCOSE, URINE NEGATIVE (NEGATIVE); KETONES,URINE NEGATIVE (NEGATIVE); LEUKOCYTE ESTERASE,URINE TRACE (NEGATIVE); NITRITE,URINE NEGATIVE (NEGATIVE); PROTEIN,URINE 30 mg/dL (NEGATIVE); URINE SPECIFIC GRAVITY 1.015; UROBILINOGEN,URINE NEGATIVE mg/dL (<2.0)
[2017-02-12 12:40] LABS: RBC,URINE 0-1 /HPF
--- NOTE | 2017-02-12 12:47 | RADIOLOGY REPORT (SQ) ---
EXAM DESCRIPTION: CHEST SINGLE VIEW COMPLETED DATE/TIME: 02/12/2017 12:38 pm REASON FOR STUDY: breathing difficulty COMPARISON: 10/28/2016 NUMBER OF VIEWS: One view. TECHNIQUE: Single frontal radiographic view of the chest acquired. LIMITATIONS: None. FINDINGS: LUNGS AND PLEURA: No opacities, masses or pneumothorax. No pleural effusion. Attenuated bl ood vessels and flattened aubree-diaphragms. Hyperinflation. Right midzone scarring. MEDIASTINUM AND HILAR STRUCTURES: No masses. Contour normal. HEART AND VASCULAR STRUCTURES: Heart normal in size. Normal vasculature. BONES: No acute findings. HARDWARE: None in the chest. OTHER: No other significant finding. IMPRESSION: COPD. NO ACUTE RADIOGRAPHIC FINDING IN THE CHEST. TECHNICAL DOCUMENTATION: JOB ID: [id number] [employer]- All Rights Reserved
--- NOTE | 2017-02-12 17:39 | EKG REPORT ---
SEVERITY:- ABNORMAL ECG - SINUS RHYTHM RBBB AND LAFB : Confirmed by: Archana Mathew 12-Feb-2017 17:39:01
[2017-02-12 19:40] VITALS: BP 120/74
== END 2017-02-12 19:43 ==
LOC: ER 11:14
DX: E46 Unspecified protein-calorie malnutrition (principal); J44.9 Chronic obstructive pulmonary disease, unspecified; D64.9 Anemia, unspecified; R63.0 Anorexia; Z87.891 Personal history of nicotine dependence
CPT/HCPCS: 36415; 71010; 80053; 81001; 82803; 85025; 86850; 86900; 86901; 93005; 93010; 99284

== ENCOUNTER 2017-02-27 18:34 | Inpatient (IN) | payer MEDICARE, MEDICAID ==
[2017-02-27] MEDS ORDERED: METHYLPREDNISOLONE INJ 125 MG/2 ML SDV IV ONE (18:41)
[2017-02-27] MEDS ORDERED: IPRATROPIUM/ALBUTEROL 0.5-2.5 MG/3 ML AMPUL NEB ONE ×2 (18:41→18:42)
[2017-02-27] MEDS ORDERED: METHYLPREDNISOLONE INJ 125 MG/2 ML SDV ONE (18:43)
[2017-02-27] MEDS ORDERED: MAGNESIUM SULFATE/D5W 1 GM/100 ML RTUPB IV ONE (18:43)
--- NOTE | 2017-02-27 18:48 | ER Document Report ---
ED Respiratory Problem - General TRAVEL OUTSIDE OF THE [place] IN LAST 30 DAYS: No - HPI Patient complains to provider of: COPD, Short of breath Context: Hx COPD Associated symptoms: Other - see above <MIGUEL WAGGONER - Last Filed: 02/27/17 20:40> <ANALY GREENE - Last Filed: 02/27/17 22:45> - General Stated Complaint: RESPIRATORY DISTRESS Time Seen by Provider: 02/27/17 18:36 Notes: Patient is an 86 year old male with a history of COPD (Oxygen dependent 3L) presents to the ED via EMS with complaints of SOB. Per EMS they were called with complaints of patient being in respiratory distress by Mansi Hernández. Patient had been given 2 nebulizer treatments; patient normally receives one per day. Patients oxygen saturation was reported to be in the 90s and after receiving the two breathing treatments he was 94. Patient denies chest pain, fever, abdominal pain or difficulty moving extremities. Patient recently had pneumonia and believes he still has it. No other concerns or complaints at this time. (MIGUEL WAGGONER) - Related Data Allergies/Adverse Reactions: cortisone [Cortisone] Allergy (Intermediate, Verified 02/27/17 20:23) Abnormal behavior lisinopril Allergy (Verified 02/27/17 20:23) pepper Allergy (Verified 02/27/17 20:23) cuco inhibitor Allergy (Uncoded 02/12/17 11:55) Past Medical History - General Information source: Patient - Social History Smoking Status: Unknown if Ever Smoked Family History: Reviewed & Not Pertinent, DM, Malignancy - Past Medical History Cardiac Medical History: Reports: Hx Hypercholesterolemia, Hx Hypertension Pulmonary Medical History: Reports: Hx Asthma, Hx Bronchitis, Hx COPD, Hx Pneumonia Denies: Hx Tuberculosis Endocrine Medical History: Reports: Hx Diabetes Mellitus Type 1, Hx Diabetes Mellitus Type 2 Renal/ Medical History: Reports: Hx Kidney Stones. Denies: Hx Peritoneal Dialysis Musculoskeltal Medical History: Reports Hx Arthritis Skin Medical History: Reports Hx MRSA Psychiatric Medical History: Reports: Hx Anxiety, Hx Depression Past Surgical History: Reports: Hx Tonsillectomy, Hx Urinary Tract Surgery - Immunizations Hx Diphtheria, Pertussis, Tetanus Vaccination: No Hx Pneumococcal Vaccination: 09/22/12 <MIGUEL WAGGONER - Last Filed: 02/27/17 20:40> Review of Systems - Review of Systems Constitutional: See HPI. denies: Fever EENT: No symptoms reported Cardiovascular: See HPI. denies: Chest pain Respiratory: See HPI, Short of breath Gastrointestinal: No symptoms reported, See HPI. denies: Abdominal pain Genitourinary: No symptoms reported Male Genitourinary: No symptoms reported Musculoskeletal: See HPI, Other - denies difficulty moving extremities Skin: No symptoms reported Hematologic/Lymphatic: No symptoms reported Neurological/Psychological: No symptoms reported <MIGUEL WAGGONER - Last Filed: 02/27/17 20:40> Physical Exam - General General appearance: Alert - HEENT Head: Normocephalic, Atraumatic Eyes: Normal Extraocular movements intact: Yes Pupils: PERRL - Respiratory Respiratory status: Respiratory distress, Other - working hard to breathe Breath sounds: Rales - in most maharaj bilaterally, Wheezing - in most maharaj bilaterally - Cardiovascular Rhythm: Regular Heart sounds: Normal auscultation Murmur: No - Abdominal Inspection: Normal Distension: No distension Tenderness: Nontender - Back Back: Normal - Extremities General upper extremity: Normal inspection, Normal ROM General lower extremity: Normal inspection, Normal ROM - Neurological Neuro grossly intact: Yes Cognition: Normal Orientation: AAOx4 [place] Coma Scale Eye Opening: Spontaneous [place] Coma Scale Verbal: Oriented [place] Coma Scale Motor: Obeys Commands [place] Coma Scale Total: 15 Speech: Normal Motor strength normal: LUE, RUE, LLE, RLE - Psychological Associated symptoms: Normal affect, Normal mood - Skin Skin Temperature: Warm Skin Moisture: Dry Skin Color: Normal <MIGUEL WAGGONER - Last Filed: 02/27/17 20:40> Course - Laboratory Result Diagrams: 02/27/17 19:05 02/27/17 19:05 - Consults Dr Singh Time consulted: 20:19 Dr. Singh Time consulted: 20:20 Consulted provider: will see as inpatient <MIGUEL WAGGONER - Last Filed: 02/27/17 20:40> - Laboratory Result Diagrams: 02/27/17 19:05 02/27/17 19:05 - Diagnostic Test Radiology reviewed: Image reviewed, Reports reviewed <ANALY GREENE - Last Filed: 02/27/17 22:45> - Re-evaluation Re-evalutation: 02/27/17 Patient is an 86-year-old male who comes in with difficulty breathing and respiratory distress. Patient has a history of CHF and COPD. States he was recently treated for pneumonia. Patient also has foul-smelling urine. Patient with no acute changes on chest x-ray. Wheezing improved after nebulizer, Solu- Medrol, and magnesium. Patient was placed on BiPAP for respiratory distress which is tolerating well. Patient will be given Rocephin for his urinary tract infection. Patient will be referred for admission to the hospitalist service. Agrees with plan. Stable time of admission. (ANALY GREENE) - Vital Signs Vital signs: Temp Pulse Resp BP Pulse Ox 98.9 F 93 20 139/83 H 100 02/27/17 21:03 02/27/17 21:03 02/27/17 21:31 02/27/17 21:31 02/27/17 21:31 - Laboratory Laboratory results interpreted by me: 02/27/17 02/27/17 02/27/17 19:05 19:05 19:05 RBC 4.06 L Hgb 9.7 L Hct 31.0 L MCV 76 L MCH 23.8 L MCHC 31.1 L RDW 18.7 H Plt Count 458 H Lymphocytes % 10.6 L VBG pCO2 VBG HCO3 Sodium 135.4 L Potassium 5.2 H Chloride 97 L BUN 25 H Creatinine 1.30 H Est GFR (Non-Af Amer) 52 L Direct Bilirubin 0.5 H NT-Pro-B Natriuret Pep 2480 H Albumin 3.1 L Urine Protein Urine Glucose (UA) Urine Blood Ur Leukocyte Esterase 02/27/17 02/27/17 19:35 20:10 RBC Hgb Hct MCV MCH MCHC RDW Plt Count Lymphocytes % VBG pCO2 65.2 H* VBG HCO3 33.0 H Sodium Potassium Chloride BUN Creatinine Est GFR (Non-Af Amer) Direct Bilirubin NT-Pro-B Natriuret Pep Albumin Urine Protein 30 H Urine Glucose (UA) 50 H Urine Blood SMALL H Ur Leukocyte Esterase LARGE H - Consults Dr Singh Reason for consultation: 02/27/17 20:[address] Singh to discuss patient. (MIGUEL WAGGONER) Dr. Singh Reason for consultation: 02/27/17 20:20 Patient is accepted for admission. (MIGUEL WAGGONER) Critical Care Note - Critical Care Note Total time excluding time spent on procedures (mins): 45 - Evaluation and management of respiratory distress, possible airway compromise, treatment of acute COPD, treatment of urinary tract infection, coordination of admission, counseling patient <ANALY GREENE - Last Filed: 02/27/17 22:45> Discharge <MIGUEL WAGGONER - Last Filed: 02/27/17 20:40> - Discharge Admitting Provider: [facility] Unit Admitted: Telemetry <ANALY GREENE - Last Filed: 02/27/17 22:45> - Discharge Clinical Impression: Acute hypercapnic respiratory failure, 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 (ANALY GREENE) Scribe Documentation - Scribe Written by Adis:: adis Wright, 02/27/2017, 1849 acting as scribe for :: Lizeth <MIGUEL WAGGONER - Last Filed: 02/27/17 20:40>
[2017-02-27] MEDS: MAGNESIUM SULFATE/D5W 100 ML IV SCH ×2 (19:11→21:25)
[2017-02-27 19:31] LABS: ABSOLUTE EOSINOPHILS # (AUTO) 0.2 10^3/uL (0.0-0.6); ABSOLUTE LYMPHOCYTES (AUTO) 1.1 10^3/uL (0.5-4.7); ABSOLUTE NEUT (AUTO) 8.1 10^3/uL (1.7-8.2); BASOPHILS % (AUTO) 0.3 % (0-2); EOSINOPHILS % (AUTO) 2.3 % (0-6); HEMOGLOBIN 9.7 g/dL (13.5-17.0); HGB HCT DIFFERENCE -1.9; LYMPHOCYTES % (AUTO) 10.6 % (13-45); MEAN CORPUSCULAR HEMOGLOBIN 23.8 pg (27.0-33.4); MEAN CORPUSCULAR HGB CONC 31.1 g/dL (32.0-36.0); MEAN CORPUSCULAR VOLUME 76 fl (80-97); MONOCYTES % (AUTO) 9.2 % (3-13); RED BLOOD COUNT 4.06 10^6/uL (4.35-5.55); RED CELL DISTRIBUTION WIDTH 18.7 % (11.5-14.0); SEGMENTED NEUTROPHILS % (AUTO) 77.6 % (42-78); WHITE BLOOD COUNT 10.4 10^3/uL (4.0-10.5)
[2017-02-27 19:36] LABS: PROTHROMBIN TIME 13.3 SEC (11.4-15.4)
--- NOTE | 2017-02-27 19:44 | RADIOLOGY REPORT (SQ) ---
EXAM DESCRIPTION: CHEST SINGLE VIEW COMPLETED DATE/TIME: 02/27/2017 7:17 pm REASON FOR STUDY: cough, SOB COMPARISON: 02/12/2017 EXAM PARAMETERS: NUMBER OF VIEWS: One view. TECHNIQUE: Single frontal radiographic view of the chest acquired. RADIATION DOSE: NA LIMITATIONS: None. FINDINGS: LUNGS AND PLEURA: No acute opacities, masses or pneumothorax. Similar chronic interstitia l changes. No pleural effusion. MEDIASTINUM AND HILAR STRUCTURES: Stable. HEART AND VASCULAR STRUCTURES: Stable. BONES: No acute findings. HARDWARE: None in the chest. OTHER: No other significant finding. IMPRESSION: No consolidation or pleural effusion. TECHNICAL DOCUMENTATION: JOB ID: [id number]
[2017-02-27 19:45] LABS: ALANINE AMINOTRANSFERASE 22 U/L (21-72); ALBUMIN 3.1 g/dL (3.5-5.0); ALKALINE PHOSPHATASE 126 U/L (38-126); ANION GAP 11 (5-19); ASPARTATE AMINO TRANSFERASE 24 U/L (17-59); BILIRUBIN,DIRECT 0.5 mg/dL (0.0-0.4); BILIRUBIN,TOTAL 0.5 mg/dL (0.2-1.3); BLOOD UREA NITROGEN 25 mg/dL (7-20); CALCIUM 8.6 mg/dL (8.4-10.2); CARBON DIOXIDE 27 mmol/L (22-30); CHLORIDE 97 mmol/L (98-107); GLUCOSE 83 mg/dL (75-110); POTASSIUM 5.2 mmol/L (3.6-5.0); SODIUM 135.4 mmol/L (137-145); TOTAL PROTEIN 7.6 g/dL (6.3-8.2)
[2017-02-27 19:55] LABS: AMORPHOUS SEDIMENT,URINE TRACE /HPF; APPEARANCE,URINE CLOUDY; BILIRUBIN,URINE NEGATIVE (NEGATIVE); GLUCOSE, URINE 50 mg/dL (NEGATIVE); KETONES,URINE NEGATIVE (NEGATIVE); LEUKOCYTE ESTERASE,URINE LARGE (NEGATIVE); NITRITE,URINE NEGATIVE (NEGATIVE); PROTEIN,URINE 30 mg/dL (NEGATIVE); URINE SPECIFIC GRAVITY 1.014; UROBILINOGEN,URINE NEGATIVE mg/dL (<2.0)
[2017-02-27 20:03] LABS: TROPONIN I < 0.012 ng/mL
[2017-02-27] MEDS ORDERED: CEFTRIAXONE 1 GM/D5W RTU 50 ML IV ONE (20:17)
[2017-02-27] MEDS ORDERED: ACETAMINOPHEN 325 MG TABLET PO PRN (20:25)
[2017-02-27] MEDS ORDERED: BISACODYL 10 MG SUPP.RECT PR PRN (20:25)
[2017-02-27] MEDS ORDERED: LEVALBUTEROL HCL NEB 1.25 MG/3 ML AMPUL NEB PRN (20:25)
[2017-02-27] MEDS ORDERED: DEXTROSE 50%-WATER 25 GM/50 ML DISP.SYRIN IV PRN ×2 (20:28)
[2017-02-27] MEDS ORDERED: GLUCAGON,HUMAN RECOMB 1 MG INJ IM PRN (20:28)
[2017-02-27] MEDS ORDERED: DEXTROSE 40% GEL 15 GM TUBE PO PRN ×2 (20:28)
[2017-02-27 20:40] LABS: VENOUS BLOOD BASE EXCESS 5.5 mmol/L; VENOUS BLOOD PH 7.32 (7.30-7.42)
[2017-02-27 20:41] LABS: VENOUS BLOOD PCO2 65.2 mmHg (35-63)
[2017-02-27] MEDS ORDERED: LACTULOSE SYRUP 20 GM/30 ML UDCUP PO ONE (21:00)
[2017-02-27] MEDS ORDERED: FUROSEMIDE INJ/PF 40 MG/4 ML SDV IV ONE (21:00)
[2017-02-27] MEDS: HEPARIN SOD (PORCINE) 5,000 UNIT/ML 1 ML SYRINGE SUBCUT SCH (23:17)
[2017-02-27] MEDS: FLUTICASONE/SALMETEROL DISKUS 250-50 MCG/DOSE IH SCH (23:17)
[2017-02-27] MEDS: CARVEDILOL 3.125 MG TABLET PO SCH (23:22)
[2017-02-27] MEDS: ATORVASTATIN CALCIUM 10 MG TABLET PO SCH (23:23)
[2017-02-28] MEDS ORDERED: INSULIN GLARGINE,HUM.REC.ANLOG 1,000 UNIT/10 ML UNIT SUBCUT ONE (00:30)
--- NOTE | 2017-02-28 00:30 | PDOC H&P ---
History of Present Illness Admission Date/PCP: 02/27/17 20:29 Patient complains of: Shortness of breath History of Present Illness: ZEFERINO URBINA is a 86 year old male with an extensive past medical history including COPD, bronchiectasis hypertension, thoracic aortic aneurysm, insulin dependent diabetes, iron deficiency anemia, generalized debility and nonambulatory. He is a long-term care home resident noted to be short of breath with wheezing and brought to the emergency room for evaluation was found to have tachypnea with use of accessory muscles, tachycardia. His labs reveal anemia with a hemoglobin of 9 and congestive heart failure with a BNP of 2480. He started on BiPAP and referred to the hospital for admission. Patient denies pain he is unaware of recent changes in his medication he admits feeling better after albuterol with Atrovent and BiPAP placement. Past Medical History Cardiac Medical History: Reports: Hyperlipidema, Hypertension Pulmonary Medical History: Reports: Asthma, Bronchitis, Chronic Obstructive Pulmonary Disease (COPD), Pneumonia Denies: Tuberculosis Endocrine Medical History: Reports: Diabetes Mellitus Type 1, Diabetes Mellitus Type 2 Musculoskeltal Medical History: Reports: Arthritis Psychiatric Medical History: Reports: Depression Past Surgical History Past Surgical History: Reports: Tonsillectomy Social History Information Source: Patient, [facility] Records Lives with: [facility] Smoking Status: Former Smoker Frequency of Alcohol Use: None Hx Recreational Drug Use: No Drugs: None Hx Prescription Drug Abuse: No - Advance Directive Resuscitation Status: Full Code Family History Family History: DM, Malignancy Parental Family History Reviewed: Yes Children Family History Reviewed: Yes Sibling(s) Family History Reviewed.: Yes Medication/Allergy Home Medications: Acetaminophen [Tylenol 325 mg Tablet] 650 mg PO Q6HP PRN 10/02/16 Aspirin [Lo-Dose Aspirin EC] 81 mg PO DAILY 10/02/16 Bisacodyl [Dulcolax 10 mg Supp.rect] 10 mg OK DAILYP PRN 10/02/16 Finasteride [Proscar 5 mg Tablet] 5 mg PO DAILY 10/02/16 Fluoxetine HCl [Prozac 20 mg Capsule] 20 mg PO DAILY 10/02/16 Fluticasone/Salmeterol [Advair 250-50 Diskus 14 Dose/Diskus] 1 puff IH Q12 10/02 Guaifenesin [Mucinex Sr 600 mg Tablet.sa] 600 mg PO BID 10/02/16 Insulin Aspart [Novolog Insulin (Aspart) 100 unit/mL] See Protocol SQ ACHS 10/02 Insulin Glargine,Hum.rec.anlog [Lantus] 10 units SQ QHS 10/02/16 Melatonin 10 mg PO HSP PRN 10/02/16 Multivitamin [Daily Multiple Vitamin] 1 each PO DAILY 10/02/16 Polyethylene Glycol 3350 [Miralax Powder 17 gm/Packet] 17 gm PO DAILYP PRN 10/02 Umeclidinium [place] [Incruse Ellipta] 1 puff IH DAILY 10/02/16 Docusate Sodium [Colace 100 mg Capsule] 100 mg PO BID capsule 10/11/16 Lansoprazole [Prevacid 30 mg Odt Tablet] 30 mg PO Q6AM tab.rap.dr 10/11/16 Ranolazine [Ranexa 500 mg Tab.sr] 500 mg PO Q12 tab.sr.12h 10/11/16 Simethicone [Mylicon 80 mg Chewable Tablet] 120 mg PO QIDP PRN tab.chew Tamsulosin HCl [Flomax 0.4 mg Cap.sr] 0.4 mg PO PCSUPPER cap.sr.24h 10/11/16 Atorvastatin Calcium [Lipitor 10 mg Tablet] 5 mg PO QHS tablet 10/13/16 Carvedilol [Coreg 3.125 mg Tablet] 3.125 mg PO Q12 tablet 10/13/16 Furosemide [Lasix] 10 mg PO DAILY #30 tablet 10/13/16 Levalbuterol HCl [Xopenex Neb 1.25 mg/3 ml Ampul] 1.25 mg NEB [id number] vial.neb 10/13/16 Lisinopril [Prinivil 5 mg Tablet] 2.5 mg PO DAILY tablet 10/13/16 Lisinopril [Prinivil 5 mg Tablet] 2.5 mg PO DAILY tablet 10/13/16 Temazepam [Restoril 7.5 mg Capsule] 7.5 mg PO HSP PRN #10 capsule 10/13/16 Cephalexin Monohydrate [Keflex 500 mg Capsule] 500 mg PO BID #20 capsule Ferrous Sulfate [Iron] 325 mg PO DAILY 02/27/17 Gabapentin [Neurontin 100 mg Capsule] 100 mg PO Q12 02/27/17 Levalbuterol HCl [Xopenex Neb 1.25 mg/3 ml Ampul] 1.25 mg NEB [id number] PRN Mirtazapine [Remeron 15 mg Tablet] 15 mg PO QHS 02/27/17 Omeprazole 20 mg PO QAM 02/27/17 Polyethylene Glycol 3350 [Miralax Powder 17 gm/Packet] 1 packet PO DAILY PRN 05/08 Allergies/Adverse Reactions: cortisone [Cortisone] Allergy (Intermediate, Verified 02/27/17 20:23) Abnormal behavior lisinopril Allergy (Verified 02/27/17 20:23) pepper Allergy (Verified 02/27/17 20:23) cuco inhibitor Allergy (Uncoded 02/12/17 11:55) Review of Systems ROS unobtainable: Other - Due to shortness of breath on BiPAP Physical Exam Vital Signs: Temp Pulse Resp BP Pulse Ox 98.2 F 96 21 H 115/71 100 02/27/17 22:10 02/27/17 22:54 02/27/17 22:10 02/27/17 22:10 02/27/17 22:10 Intake & Output 02/26/17 02/27/17 02/28/17 11:59 11:59 11:59 Intake Total 0 Output Total 320 Balance -320 Weight 62.2 kg General appearance: PRESENT: cooperative, disheveled, mild distress, thin Head exam: PRESENT: atraumatic, normocephalic Eye exam: PRESENT: conjunctiva pink, EOMI, PERRLA. ABSENT: scleral icterus Ear exam: PRESENT: normal external ear exam Mouth exam: PRESENT: moist, tongue midline Neck exam: ABSENT: carotid bruit, JVD, lymphadenopathy, thyromegaly Respiratory exam: PRESENT: accessory muscle use, crackles, prolonged expiratory phas, retraction, symmetrical, tachypnea. ABSENT: rhonchi, stridor Cardiovascular exam: PRESENT: gallop, RRR. ABSENT: diastolic murmur, rubs, systolic murmur Pulses: PRESENT: normal dorsalis pedis pul Vascular exam: PRESENT: normal capillary refill GI/Abdominal exam: PRESENT: normal bowel sounds, soft. ABSENT: distended, guarding, mass, organolmegaly, rebound, tenderness Rectal exam: PRESENT: deferred Extremities exam: PRESENT: full ROM. ABSENT: calf tenderness, clubbing, pedal edema Neurological exam: PRESENT: alert, awake, oriented to person, oriented to place , oriented to time, oriented to situation, CN II-XII grossly intact. ABSENT: motor sensory deficit Psychiatric exam: PRESENT: appropriate affect, normal mood. ABSENT: homicidal ideation, suicidal ideation Skin exam: PRESENT: dry, intact, warm. ABSENT: cyanosis, rash Results Impressions: Chest X-Ray 02/27/17 18:39 IMPRESSION: No consolidation or pleural effusion. Assessment & Plan - Diagnosis (1) Acute on chronic combined systolic (congestive) and diastolic (congestive) heart failure Is this a current diagnosis for this admission?: YesPlan: Multifactorial acute on chronic congestive heart failure secondary to urinary tract infection, anemia with high output failure. He is admitted to the monitored bed with a congestive heart failure care set follow-up CBC and chemistry (2) Anemia Qualifiers: Anemia type: iron deficiency Is this a current diagnosis for this admission?: YesPlan: Apparent microcytic anemia most likely iron deficient I will start iron empirically and obtain labs to follow as well as CBC (3) COPD exacerbation Is this a current diagnosis for this admission?: YesPlan: Albuterol, Atrovent, flutter valve consider antibiotics for pseudomonal coverage given history of bronchiectasis (4) UTI (urinary tract infection) Qualifiers: Urinary tract infection type: site unspecified Hematuria presence: with hematuria Qualified Code(s): N39.0 - Urinary tract infection, site not specified Is this a current diagnosis for this admission?: YesPlan: Rocephin initiated urine culture and CBC pending (5) Hyperkalemia Is this a current diagnosis for this admission?: YesPlan: Unclear cause possible constipation, gentle hydration reevaluation of chemistry - Time Time Spent: 50 to 70 Minutes - Inpatient Certification Medical Necessity: Need Close Monitoring Due to Risk of Patient Decompensation
[2017-02-28 05:21] LABS: ABSOLUTE LYMPHOCYTES (AUTO) 0.5 10^3/uL (0.5-4.7); ABSOLUTE NEUT (AUTO) 6.8 10^3/uL (1.7-8.2); BASOPHILS % (AUTO) 0.1 % (0-2); HEMATOCRIT 28.5 % (37.9-51.0); HEMOGLOBIN 8.9 g/dL (13.5-17.0); HGB HCT DIFFERENCE -1.8; LYMPHOCYTES % (AUTO) 6.3 % (13-45); MEAN CORPUSCULAR HEMOGLOBIN 23.4 pg (27.0-33.4); MEAN CORPUSCULAR HGB CONC 31.1 g/dL (32.0-36.0); MEAN CORPUSCULAR VOLUME 75 fl (80-97); MONOCYTES % (AUTO) 0.6 % (3-13); RED BLOOD COUNT 3.78 10^6/uL (4.35-5.55); RED CELL DISTRIBUTION WIDTH 18.6 % (11.5-14.0); WHITE BLOOD COUNT 7.3 10^3/uL (4.0-10.5)
[2017-02-28 05:37] LABS: ANION GAP 8 (5-19); BLOOD UREA NITROGEN 30 mg/dL (7-20); CALCIUM 7.7 mg/dL (8.4-10.2); CARBON DIOXIDE 29 mmol/L (22-30); CHLORIDE 95 mmol/L (98-107); CREATININE RESULT 1.38 mg/dL (0.52-1.25); POTASSIUM 5.3 mmol/L (3.6-5.0); SODIUM 131.9 mmol/L (137-145)
[2017-02-28] MEDS: HEPARIN SOD (PORCINE) 5,000 UNIT/ML 1 ML SYRINGE SUBCUT SCH ×3 (05:43→21:31)
[2017-02-28 05:51] LABS: GLUCOSE 432 mg/dL (75-110)
[2017-02-28] MEDS: IPRATROPIUM BROMIDE 0.02% NEB 0.5 MG/2.5 ML AMPUL NEB SCH ×3 (08:47→20:50)
[2017-02-28] MEDS: LEVALBUTEROL HCL NEB 1.25 MG/3 ML AMPUL NEB SCH ×3 (08:48→20:50)
[2017-02-28] MEDS: POLYETHYLENE GLYCOL 3350 POWDER 17 GM/1 PACKET PO PRN (09:38)
[2017-02-28] MEDS: MULTIVITAMIN TABLET PO SCH (09:39)
[2017-02-28] MEDS: GABAPENTIN 100 MG CAPSULE PO SCH ×2 (09:39→21:34)
[2017-02-28] MEDS: FINASTERIDE 5 MG TABLET PO SCH (09:40)
[2017-02-28] MEDS: FERROUS SULFATE 325 MG TABLET PO SCH (09:40)
[2017-02-28] MEDS: IRON POLYSACCHARIDES COMPLEX 150 MG CAPSULE PO SCH (09:40)
[2017-02-28] MEDS: RANOLAZINE 500 MG TAB.SR.12H PO SCH ×2 (09:40→21:32)
[2017-02-28] MEDS: FLUTICASONE/SALMETEROL DISKUS 250-50 MCG/DOSE IH SCH ×2 (09:41→21:31)
[2017-02-28] MEDS: ASPIRIN 81 MG TABLET, ENT COATED PO SCH (09:41)
[2017-02-28] MEDS: CARVEDILOL 3.125 MG TABLET PO SCH ×2 (09:41→21:33)
[2017-02-28] MEDS: FLUOXETINE HCL 20 MG CAPSULE PO SCH (09:41)
[2017-02-28] MEDS: DOCUSATE SODIUM 100 MG CAPSULE PO SCH ×2 (09:41→17:26)
[2017-02-28] MEDS: INSULIN LISPRO 100 UNIT/ML 3 ML VIAL SUBCUT PRN ×2 (09:44→12:29)
[2017-02-28] MEDS ORDERED: FUROSEMIDE 20 MG TABLET PO SCH (10:00)
[2017-02-28] MEDS ORDERED: FUROSEMIDE INJ/PF 40 MG/4 ML SDV IV SCH (10:00)
[2017-02-28] MEDS ORDERED: (PENDING PHARMACY ID) (Umeclidinium Bromide [Incruse Ellipta] 1 PUFF) IH SCH (10:00)
[2017-02-28] MEDS: LISINOPRIL 5 MG TABLET PO SCH (10:37)
--- NOTE | 2017-02-28 11:39 | Physician Advisory Note ---
Physician Advisor ProgressNote .: Pursuant to the plan for [facility], I have reviewed the medical record for this patient. Physician Advisor Statement: Nice documentation of underlyiing COPD/bronchiectasis/CHF chronic syst/diast, & the pt's use of accessory muscles & need for Bipap along with supervening anemia & high BNP.... Please consider documentin. " Acute on chronic hypercarbic & hypoxemic resp failure due to COPD + bronchiectasis" 2. "Suspected acute bronchitis" [ 3. "Acute hyponatremia, suspect due to ____" 4. likely cause of Fe defic anemia: nutritional? chronic blood loss from ____ ? 5. type DM - type 1 or 2? H&P states both. 6. 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 Discussion: 86yo w/chronic bronchiectasis, COPD, chr resp failure, anemia, chr syst/diast CHF, malnutrition, debility w/long-term SNF care, in w/acute exac COPD/CHF/resp failure as well as UTI - ordered IV Lasix daily, IV Rocephin, mult nebs, I/Os, daily wts, tele, f/u labs, O2, flutter valve, now with worsening hyponatremia, continued hyperkalemia, worsened Cr level concerning for early ARF, glc up from 83 to 432, ur cx growing GNR - with recurrent tachycardia & tachypnea since admission & Bipap need through at least 22:54. Thanks! CK
--- NOTE | 2017-02-28 14:51 | PDOC PROGRESS REPORT ---
Subjective Progress Note for:: 02/28/17 Subjective:: Patient seen on morning rounds. He is resting comfortably in bed on a nasal cannula at 3l/min with oxygen saturation in the mid 90's. He states his breathing is much improved; " ...it's like night and day.. ". He has had a mildly congested cough for the last several days. He denies any chest pain or dyspnea. He denies, nausea, vomiting or abdominal pain. He verbalizes no other complaints. Remaining review of systems is negative Physical Exam Vital Signs: Temp Pulse Resp BP Pulse Ox 97.6 F 81 24 H 97/52 L 95 02/28/17 11:17 02/28/17 11:17 02/28/17 11:17 02/28/17 11:17 02/28/17 11:17 Intake & Output 02/27/17 02/28/17 03/01/17 06:59 06:59 06:59 Intake Total 666 Output Total 1060 Balance -394 Weight 62.2 kg General appearance: PRESENT: no acute distress, thin, well-developed Head exam: PRESENT: atraumatic, normocephalic Eye exam: PRESENT: conjunctiva pink, EOMI, PERRLA. ABSENT: scleral icterus Ear exam: PRESENT: normal external ear exam Mouth exam: PRESENT: moist, tongue midline Neck exam: ABSENT: carotid bruit, JVD, lymphadenopathy, thyromegaly Respiratory exam: PRESENT: decreased breath sounds - throughout, rhonchi, symmetrical, unlabored. ABSENT: rales, wheezes Cardiovascular exam: PRESENT: RRR. ABSENT: diastolic murmur, rubs, systolic murmur Pulses: PRESENT: normal carotid pulses, normal radial pulses GI/Abdominal exam: PRESENT: normal bowel sounds, soft. ABSENT: distended, guarding, mass, organolmegaly, rebound, tenderness Rectal exam: PRESENT: deferred Extremities exam: PRESENT: full ROM. ABSENT: calf tenderness, clubbing, pedal edema Neurological exam: PRESENT: alert, awake, oriented to person, oriented to place , oriented to time, oriented to situation, CN II-XII grossly intact. ABSENT: motor sensory deficit Psychiatric exam: PRESENT: appropriate affect, normal mood. ABSENT: homicidal ideation, suicidal ideation Skin exam: PRESENT: dry, intact, warm. ABSENT: cyanosis, rash Results Laboratory Results: 02/28/17 05:07 02/28/17 05:07 02/28/17 02/28/17 05:07 05:07 WBC 7.3 RBC 3.78 L Hgb 8.9 L Hct 28.5 L MCV 75 L MCH 23.4 L MCHC 31.1 L RDW 18.6 H Plt Count 407 Seg Neutrophils % 93.0 H Lymphocytes % 6.3 L Monocytes % 0.6 L Eosinophils % 0.0 Basophils % 0.1 Absolute Neutrophils 6.8 Absolute Lymphocytes 0.5 Absolute Monocytes 0.0 L Absolute Eosinophils 0.0 Absolute Basophils 0.0 Sodium 131.9 L Potassium 5.3 H Chloride 95 L Carbon Dioxide 29 Anion Gap 8 BUN 30 H Creatinine 1.38 H Est GFR ( Amer) 59 L Est GFR (Non-Af Amer) 49 L Glucose 432 H* Calcium 7.7 L Impressions: Chest X-Ray 02/27/17 18:39 IMPRESSION: No consolidation or pleural effusion. Assessment & Plan - Diagnosis (1) Acute and chronic respiratory failure with hypercapnia Is this a current diagnosis for this admission?: YesPlan: Patient with PMH of COPD on home oxygen 3l/min with tachypnea, congested cough and hypercapnea requiring BIPAP therapy, IV steroids, and IV antibiotics secondary to acute bronchitis. (2) Acute on chronic combined systolic (congestive) and diastolic (congestive) heart failure Is this a current diagnosis for this admission?: YesPlan: Patient was found to have slightly elevated BNP. He was given one dose of IV lasix with good affect. (3) Bronchiectasis Qualifiers: Bronchiectasis type: with acute lower respiratory infection Qualified Code(s): J47.0 - Bronchiectasis with acute lower respiratory infection Is this a current diagnosis for this admission?: YesPlan: Nebulizers, IV steroids (4) Coronary artery disease Qualifiers: Coronary Disease-Associated Artery/Lesion type: [place] artery [place] vs. transplanted heart: [place] heart Associated angina: without angina Qualified Code(s): I25.10 - Atherosclerotic heart disease of [place] coronary artery without angina pectoris Is this a current diagnosis for this admission?: Yes (5) Hyperkalemia Is this a current diagnosis for this admission?: YesPlan: Will continue to monitor (6) Hypertension Qualifiers: Hypertension type: essential hypertension Qualified Code(s): I10 - Essential (primary) hypertension Is this a current diagnosis for this admission?: YesPlan: Continue current medications patient is normotensive (7) Type 2 diabetes mellitus with hyperglycemia Qualifiers: Diabetes mellitus retirement insulin use: with 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 Qualified Code(s): E11.65 - Type 2 diabetes mellitus with hyperglycemia Is this a current diagnosis for this admission?: YesPlan: Elevated glucose levels secondary to IV steroids - Time Time Spent with patient: 25-34 minutes Critical Time spent with patient: 15-24 minutes Medications reviewed and adjusted accordingly: Yes Anticipated discharge: Home with Homehealth Within: within 24 hours - Inpatient Certification Based on my medical assessment, after consideration of the patient's comorbidities, presenting symptoms, or acuity I expect that the services needed warrant INPATIENT care.: Yes Medical Necessity: Need For Continuous Telemetry Monitoring, Need for Nebulizer Therapy and Monitoring of Response, Need for IV Antibiotics
[2017-02-28] MEDS: CEFTRIAXONE 1 GM/D5W RTU 1 GM/50 ML RTUPB IV SCH (17:23)
[2017-02-28] MEDS: GUAIFENESIN 600 MG TABLET.SA PO SCH (17:25)
[2017-02-28] MEDS: TAMSULOSIN HCL 0.4 MG CAP.SR.24H PO SCH (17:25)
[2017-02-28] MEDS: ATORVASTATIN CALCIUM 10 MG TABLET PO SCH (21:32)
[2017-02-28] MEDS: MIRTAZAPINE 15 MG TABLET PO SCH (21:33)
[2017-02-28] MEDS ORDERED: INSULIN GLARGINE,HUM.REC.ANLOG 300 UNIT/3 ML INSULN.PEN SUBCUT SCH ×2 (22:00)
[2017-02-28] MEDS: INSULIN GLARGINE,HUM.REC.ANLOG 300 UNIT/3 ML INSULN.PEN SUBCUT SCH (22:05)
[2017-03-01] MEDS: HEPARIN SOD (PORCINE) 5,000 UNIT/ML 1 ML SYRINGE SUBCUT SCH ×3 (05:58→21:45)
[2017-03-01] MEDS: LEVALBUTEROL HCL NEB 1.25 MG/3 ML AMPUL NEB SCH ×3 (08:54→21:28)
[2017-03-01] MEDS: IPRATROPIUM BROMIDE 0.02% NEB 0.5 MG/2.5 ML AMPUL NEB SCH ×3 (08:54→21:27)
[2017-03-01] MEDS: LISINOPRIL 5 MG TABLET PO SCH (09:59)
[2017-03-01] MEDS: DOCUSATE SODIUM 100 MG CAPSULE PO SCH ×2 (10:12→17:32)
[2017-03-01] MEDS: GUAIFENESIN 600 MG TABLET.SA PO SCH ×2 (10:12→17:31)
[2017-03-01] MEDS: POLYETHYLENE GLYCOL 3350 POWDER 17 GM/1 PACKET PO PRN (10:12)
[2017-03-01] MEDS: FINASTERIDE 5 MG TABLET PO SCH (10:13)
[2017-03-01] MEDS: MULTIVITAMIN TABLET PO SCH (10:13)
[2017-03-01] MEDS: FERROUS SULFATE 325 MG TABLET PO SCH (10:13)
[2017-03-01] MEDS: FLUOXETINE HCL 20 MG CAPSULE PO SCH (10:13)
[2017-03-01] MEDS: GABAPENTIN 100 MG CAPSULE PO SCH ×2 (10:13→21:45)
[2017-03-01] MEDS: IRON POLYSACCHARIDES COMPLEX 150 MG CAPSULE PO SCH (10:13)
[2017-03-01] MEDS: ASPIRIN 81 MG TABLET, ENT COATED PO SCH (10:13)
[2017-03-01] MEDS: CARVEDILOL 3.125 MG TABLET PO SCH ×2 (10:13→21:45)
[2017-03-01] MEDS: FUROSEMIDE 20 MG TABLET PO SCH (10:14)
[2017-03-01] MEDS: FLUTICASONE/SALMETEROL DISKUS 250-50 MCG/DOSE IH SCH ×2 (10:15→21:45)
[2017-03-01] MEDS: RANOLAZINE 500 MG TAB.SR.12H PO SCH ×2 (10:15→21:45)
--- NOTE | 2017-03-01 12:25 | PDOC PROGRESS REPORT ---
Subjective Progress Note for:: 03/01/17 Subjective:: reason for visit: f/u acute on chronic resp failure, COPD exac, UTI hospital course: per other's notes - "ZEFERINO URBINA is a 86 year old male with an extensive past medical history including COPD, bronchiectasis hypertension, thoracic aortic aneurysm, insulin dependent diabetes, iron deficiency anemia, generalized debility and nonambulatory. He is a long-term correction resident noted to be short of breath with wheezing and brought to the emergency room for evaluation was found to have tachypnea with use of accessory muscles, tachycardia. His labs reveal anemia with a hemoglobin of 9 and congestive heart failure with a BNP of 2480. He started on BiPAP and referred to the hospital for admission. Patient denies pain he is unaware of recent changes in his medication he admits feeling better after albuterol with Atrovent and BiPAP placement." he improved with BIPAP tx, abx and nebs/pulm toilet and is back to his baseline home O2 requirements as of last night it seems. His urine grew Proteus and his initial blood culx's show 1/2 with GPCs and he screened positive for MRSA. repeat bld culx's pending. he denies chest pain, palpitations, fevers/chills; sill with some cough, nonproductive. ROS: all systems reviewed, see above, remaining systmes negative. Physical Exam Vital Signs: Temp Pulse Resp BP Pulse Ox 97.4 F 60 16 132/55 H 94 03/01/17 08:00 03/01/17 08:54 03/01/17 08:54 03/01/17 08:00 03/01/17 08:54 Intake & Output 02/28/17 03/01/17 03/02/17 06:59 06:59 06:59 Intake Total 666 1769 Output Total 1060 1900 Balance -394 -131 Weight 62.2 kg 61.8 kg General appearance: PRESENT: thin, well-developed Head exam: PRESENT: atraumatic, normocephalic Neck exam: PRESENT: full ROM. ABSENT: JVD Respiratory exam: PRESENT: clear to auscultation roque, decreased breath sounds. ABSENT: accessory muscle use Cardiovascular exam: PRESENT: RRR. ABSENT: systolic murmur Pulses: PRESENT: normal radial pulses, normal dorsalis pedis pul GI/Abdominal exam: PRESENT: normal bowel sounds, soft. ABSENT: tenderness Musculoskeletal exam: PRESENT: normal inspection, other - good strength in hips Neurological exam: PRESENT: alert, awake, oriented to person, oriented to place , oriented to situation. ABSENT: oriented to time Psychiatric exam: PRESENT: appropriate affect, normal mood Skin exam: PRESENT: pallor - very pale, warm Results Laboratory Results: 02/28/17 05:07 02/28/17 05:07 02/27/17 23:35 Nasophary (Mrsa Only) MRSA Surveillance Culture - Final MRSA RECOVERED Impressions: Chest X-Ray 02/27/17 18:39 IMPRESSION: No consolidation or pleural effusion. Status: Image reviewed by me - agree with rads Assessment & Plan - Diagnosis (1) Acute and chronic respiratory failure with hypercapnia Is this a current diagnosis for this admission?: YesPlan: seems to be near baseline, possible return to [facility] tomorrow (2) Acute on chronic combined systolic (congestive) and diastolic (congestive) heart failure Is this a current diagnosis for this admission?: YesPlan: improved after single dose of IV lasix, continue low dose oral lasix (3) COPD exacerbation Is this a current diagnosis for this admission?: YesPlan: improved, continue current regimen (4) UTI (urinary tract infection) Qualifiers: Urinary tract infection type: site unspecified Hematuria presence: with hematuria Qualified Code(s): N39.0 - Urinary tract infection, site not specified Is this a current diagnosis for this admission?: YesPlan: continue rocephin, transition to oral regimen at d/c; remove blake (5) Moderate protein-calorie malnutrition Is this a current diagnosis for this admission?: Yes (6) Hyperkalemia Is this a current diagnosis for this admission?: Yes (7) Hyponatremia Is this a current diagnosis for this admission?: YesPlan: likely 2/2 pulmonic process; mild and relatively stable - Time Time Spent with patient: 25-34 minutes Anticipated discharge: SNF Within: within 24 hours
[2017-03-01] MEDS: INSULIN LISPRO 100 UNIT/ML 3 ML VIAL SUBCUT PRN ×2 (12:29→21:45)
[2017-03-01] MEDS: TAMSULOSIN HCL 0.4 MG CAP.SR.24H PO SCH (17:31)
[2017-03-01] MEDS: CEFTRIAXONE 1 GM/D5W RTU 1 GM/50 ML RTUPB IV SCH (17:31)
[2017-03-01] MEDS: ATORVASTATIN CALCIUM 10 MG TABLET PO SCH (21:45)
[2017-03-01] MEDS: MIRTAZAPINE 15 MG TABLET PO SCH (21:45)
[2017-03-01] MEDS: INSULIN GLARGINE,HUM.REC.ANLOG 300 UNIT/3 ML INSULN.PEN SUBCUT SCH (21:45)
[2017-03-02] MEDS: HEPARIN SOD (PORCINE) 5,000 UNIT/ML 1 ML SYRINGE SUBCUT SCH ×3 (05:29→22:07)
[2017-03-02] MEDS: IPRATROPIUM BROMIDE 0.02% NEB 0.5 MG/2.5 ML AMPUL NEB SCH ×3 (08:50→19:28)
[2017-03-02] MEDS: LEVALBUTEROL HCL NEB 1.25 MG/3 ML AMPUL NEB SCH ×3 (08:50→19:28)
[2017-03-02] MEDS: ASPIRIN 81 MG TABLET, ENT COATED PO SCH (09:26)
[2017-03-02] MEDS: POLYETHYLENE GLYCOL 3350 POWDER 17 GM/1 PACKET PO PRN (09:26)
[2017-03-02] MEDS: IRON POLYSACCHARIDES COMPLEX 150 MG CAPSULE PO SCH (09:26)
[2017-03-02] MEDS: RANOLAZINE 500 MG TAB.SR.12H PO SCH ×2 (09:26→22:06)
[2017-03-02] MEDS: MULTIVITAMIN TABLET PO SCH (09:26)
[2017-03-02] MEDS: FLUTICASONE/SALMETEROL DISKUS 250-50 MCG/DOSE IH SCH ×2 (09:26→22:07)
[2017-03-02] MEDS: GUAIFENESIN 600 MG TABLET.SA PO SCH ×2 (09:27→17:18)
[2017-03-02] MEDS: FERROUS SULFATE 325 MG TABLET PO SCH (09:27)
[2017-03-02] MEDS: FLUOXETINE HCL 20 MG CAPSULE PO SCH (09:27)
[2017-03-02] MEDS: GABAPENTIN 100 MG CAPSULE PO SCH ×2 (09:27→22:06)
[2017-03-02] MEDS: DOCUSATE SODIUM 100 MG CAPSULE PO SCH ×2 (09:27→17:18)
[2017-03-02] MEDS: FUROSEMIDE 20 MG TABLET PO SCH (09:27)
[2017-03-02] MEDS: FINASTERIDE 5 MG TABLET PO SCH (09:27)
--- NOTE | 2017-03-02 12:26 | PDOC PROGRESS REPORT ---
Subjective Progress Note for:: 03/02/17 Subjective:: reason for visit: f/u acute on chronic resp failure, COPD exac, UTI hospital course: per other's notes - "ZEFERINO URBINA is a 86 year old male with an extensive past medical history including COPD, bronchiectasis hypertension, thoracic aortic aneurysm, insulin dependent diabetes, iron deficiency anemia, generalized debility and nonambulatory. He is a long-term senior living resident noted to be short of breath with wheezing and brought to the emergency room for evaluation was found to have tachypnea with use of accessory muscles, tachycardia. His labs reveal anemia with a hemoglobin of 9 and congestive heart failure with a BNP of 2480. He started on BiPAP and referred to the hospital for admission. Patient denies pain he is unaware of recent changes in his medication he admits feeling better after albuterol with Atrovent and BiPAP placement." he improved with BIPAP tx, abx and nebs/pulm toilet and is back to his baseline home O2 requirements as of last night it seems. His urine grew Proteus and his initial blood culx's show 1/2 with strep viridans and he screened positive for MRSA. repeat bld culx's pending. he denies chest pain, palpitations, fevers/chills; sill with some cough, nonproductive. ROS: all systems reviewed, see above, remaining systems negative. Physical Exam Vital Signs: Temp Pulse Resp BP Pulse Ox 97.7 F 95 20 112/60 91 L 03/02/17 04:00 03/02/17 07:00 03/02/17 04:00 03/02/17 04:00 03/02/17 04:00 Intake & Output 03/01/17 03/02/17 03/03/17 06:59 06:59 06:59 Intake Total 1769 1635 Output Total 1900 625 Balance -131 1010 Weight 61.8 kg 59 kg General appearance: PRESENT: thin, well-developed Head exam: PRESENT: atraumatic, normocephalic Neck exam: PRESENT: full ROM. ABSENT: JVD Respiratory exam: PRESENT: clear to auscultation roque, decreased breath sounds. ABSENT: accessory muscle use Cardiovascular exam: PRESENT: RRR. ABSENT: systolic murmur Pulses: PRESENT: normal radial pulses, normal dorsalis pedis pul GI/Abdominal exam: PRESENT: normal bowel sounds, soft. ABSENT: tenderness Musculoskeletal exam: PRESENT: normal inspection, other - good strength in hips Neurological exam: PRESENT: alert, awake, oriented to person, oriented to place , oriented to situation. ABSENT: oriented to time Psychiatric exam: PRESENT: appropriate affect, normal mood Skin exam: PRESENT: pallor - very pale, warm Results Laboratory Results: 02/28/17 05:07 02/28/17 05:07 02/27/17 23:35 Nasophary (Mrsa Only) MRSA Surveillance Culture - Final MRSA RECOVERED Assessment & Plan - Diagnosis (1) Acute and chronic respiratory failure with hypercapnia Is this a current diagnosis for this admission?: YesPlan: seems to be near baseline, possible return to [facility] tomorrow; get PT to evaluate and make sure he is back to baseline (2) Acute on chronic combined systolic (congestive) and diastolic (congestive) heart failure Is this a current diagnosis for this admission?: Yes (3) COPD exacerbation Is this a current diagnosis for this admission?: Yes (4) UTI (urinary tract infection) Qualifiers: Urinary tract infection type: site unspecified Hematuria presence: with hematuria Qualified Code(s): N39.0 - Urinary tract infection, site not specified Is this a current diagnosis for this admission?: YesPlan: continue rocephin, transition to oral regimen at d/c; remove blake (5) Moderate protein-calorie malnutrition Is this a current diagnosis for this admission?: Yes (6) Hyperkalemia Is this a current diagnosis for this admission?: Yes (7) Hyponatremia Is this a current diagnosis for this admission?: Yes (8) Bacteremia Is this a current diagnosis for this admission?: YesPlan: believed to be contaminant, awaiting f/u culx's - Time Time Spent with patient: 15-24 minutes Anticipated discharge: SNF Within: within 24 hours
[2017-03-02] MEDS: CARVEDILOL 3.125 MG TABLET PO SCH (14:29)
[2017-03-02] MEDS: TAMSULOSIN HCL 0.4 MG CAP.SR.24H PO SCH (17:18)
[2017-03-02] MEDS: CEFTRIAXONE 1 GM/D5W RTU 1 GM/50 ML RTUPB IV SCH (17:18)
[2017-03-02] MEDS: INSULIN GLARGINE,HUM.REC.ANLOG 300 UNIT/3 ML INSULN.PEN SUBCUT SCH (22:05)
[2017-03-02] MEDS: MIRTAZAPINE 15 MG TABLET PO SCH (22:06)
[2017-03-02] MEDS: ATORVASTATIN CALCIUM 10 MG TABLET PO SCH (22:06)
[2017-03-02] MEDS: INSULIN LISPRO 100 UNIT/ML 3 ML VIAL SUBCUT PRN (22:07)
[2017-03-03] MEDS: CARVEDILOL 3.125 MG TABLET PO SCH ×2 (02:28→09:35)
[2017-03-03] MEDS: HEPARIN SOD (PORCINE) 5,000 UNIT/ML 1 ML SYRINGE SUBCUT SCH ×2 (05:12→15:19)
[2017-03-03 05:43] LABS: ABSOLUTE EOSINOPHILS # (AUTO) 0.1 10^3/uL (0.0-0.6); ABSOLUTE LYMPHOCYTES (AUTO) 0.7 10^3/uL (0.5-4.7); ABSOLUTE MONOCYTES (AUTO) 0.9 10^3/uL (0.1-1.4); ABSOLUTE NEUT (AUTO) 7.6 10^3/uL (1.7-8.2); BASOPHILS % (AUTO) 0.2 % (0-2); EOSINOPHILS % (AUTO) 1.4 % (0-6); HEMOGLOBIN 8.5 g/dL (13.5-17.0); HGB HCT DIFFERENCE -1.5; LYMPHOCYTES % (AUTO) 7.5 % (13-45); MEAN CORPUSCULAR HEMOGLOBIN 23.3 pg (27.0-33.4); MEAN CORPUSCULAR HGB CONC 31.5 g/dL (32.0-36.0); MEAN CORPUSCULAR VOLUME 74 fl (80-97); MONOCYTES % (AUTO) 9.9 % (3-13); RED BLOOD COUNT 3.65 10^6/uL (4.35-5.55); RED CELL DISTRIBUTION WIDTH 18.5 % (11.5-14.0); WHITE BLOOD COUNT 9.4 10^3/uL (4.0-10.5)
[2017-03-03 05:56] LABS: ANION GAP 8 (5-19); BLOOD UREA NITROGEN 35 mg/dL (7-20); CALCIUM 8.1 mg/dL (8.4-10.2); CARBON DIOXIDE 31 mmol/L (22-30); CHLORIDE 97 mmol/L (98-107); GLUCOSE 41 mg/dL (75-110); MAGNESIUM 1.9 mg/dL (1.6-2.3); POTASSIUM 4.1 mmol/L (3.6-5.0); SODIUM 135.5 mmol/L (137-145)
[2017-03-03] MEDS: LEVALBUTEROL HCL NEB 1.25 MG/3 ML AMPUL NEB SCH ×2 (08:13→14:00)
[2017-03-03] MEDS: IPRATROPIUM BROMIDE 0.02% NEB 0.5 MG/2.5 ML AMPUL NEB SCH ×2 (08:13→13:59)
--- NOTE | 2017-03-03 08:51 | PDOC TRANSFER SUMMARY ---
General - Admit/Disc Date/PCP Admission Date/Primary Care Provider: 02/27/17 20:29 Discharge Date: 03/03/17 - Discharge Diagnosis (1) Acute and chronic respiratory failure with hypercapnia Is this a current diagnosis for this admission?: YesSummary: 2/2 acute on chronic heart failure and copd exac; back to baseline home O2 requirements, no further wheezing, weaned off bipap without difficulty and stable for d/c back to SNF (2) Acute on chronic combined systolic (congestive) and diastolic (congestive) heart failure Is this a current diagnosis for this admission?: YesSummary: back to baseline, continue low dose diuretic (3) COPD exacerbation Is this a current diagnosis for this admission?: YesSummary: improved, continue home nebs and home O2 as before (4) UTI (urinary tract infection) Is this a current diagnosis for this admission?: YesSummary: due to FQ res Proteus, continue Vantin for 10d and f/u with PCP (5) Moderate protein-calorie malnutrition Is this a current diagnosis for this admission?: YesSummary: recommend advance diet to whatever he will tolerate (6) Hyperkalemia Is this a current diagnosis for this admission?: YesSummary: resolved. (7) Hyponatremia Is this a current diagnosis for this admission?: YesSummary: mild and 2/2 acute heart failure; nearly back to normal and out of danger zone (8) Bacteremia Is this a current diagnosis for this admission?: YesSummary: contaminant; repeat cultures negative. - Additional Information Resuscitation Status: Full Code Discharge Diet: As Tolerated Discharge Activity: Supervised Activity - resume previous level of activity Home Medications: Acetaminophen [Tylenol 325 mg Tablet] 650 mg PO Q6HP PRN 10/02/16 Aspirin [Lo-Dose Aspirin EC] 81 mg PO DAILY 10/02/16 Bisacodyl [Dulcolax 10 mg Supp.rect] 10 mg FL DAILYP PRN 10/02/16 Finasteride [Proscar 5 mg Tablet] 5 mg PO DAILY 10/02/16 Fluticasone/Salmeterol [Advair 250-50 Diskus 14 Dose/Diskus] 1 puff IH Q12 10/02 Guaifenesin [Mucinex Sr 600 mg Tablet.sa] 600 mg PO BID 10/02/16 Insulin Aspart [Novolog Insulin (Aspart) 100 unit/mL] See Protocol SQ ACHS 10/02 Melatonin 10 mg PO HSP PRN 10/02/16 Multivitamin [Daily Multiple Vitamin] 1 each PO DAILY 10/02/16 Polyethylene Glycol 3350 [Miralax Powder 17 gm/Packet] 17 gm PO DAILYP PRN 10/02 Umeclidinium [place] [Incruse Ellipta] 1 puff IH DAILY 10/02/16 Docusate Sodium [Colace 100 mg Capsule] 100 mg PO BID capsule 10/11/16 Ranolazine [Ranexa 500 mg Tab.sr] 500 mg PO Q12 tab.sr.12h 10/11/16 Tamsulosin HCl [Flomax 0.4 mg Cap.sr] 0.4 mg PO PCSUPPER cap.sr.24h 10/11/16 Atorvastatin Calcium [Lipitor 10 mg Tablet] 5 mg PO QHS tablet 10/13/16 Carvedilol [Coreg 3.125 mg Tablet] 3.125 mg PO Q12 tablet 10/13/16 Furosemide [Lasix] 10 mg PO DAILY #30 tablet 10/13/16 Ferrous Sulfate [Iron] 325 mg PO DAILY 02/27/17 Gabapentin [Neurontin 100 mg Capsule] 100 mg PO Q12 02/27/17 Levalbuterol HCl [Xopenex Neb 1.25 mg/3 ml Ampul] 1.25 mg NEB RTQ4HP PRN Omeprazole 20 mg PO QAM 02/27/17 Polyethylene Glycol 3350 [Miralax Powder 17 gm/Packet] 1 packet PO DAILY PRN 05/08 Cefpodoxime Proxetil [Vantin 100 mg Tablet] 1 tab PO Q12 #20 tab 03/03/17 Fluoxetine HCl [Prozac 20 mg Capsule] 20 mg PO DAILY capsule 03/03/17 Insulin Glargine,Hum.rec.anlog [Lantus Insulin 100 Unit/mL] 15 unit SUBCUT QHS insuln.pen 03/03/17 Levalbuterol Tartrate [Xopenex Hfa] 15 gm IH BIDP PRN #1 hfa.aer.ad 03/03/17 Mirtazapine [Remeron 15 mg Tablet] 15 mg PO QHS #7 tablet 03/03/17 History of Present Illness Admission Date/PCP: 02/27/17 20:29 Patient complains of: SOA History of Present Illness: ZEFERINO URBINA is a 86 year old male with an extensive past medical history including COPD, bronchiectasis hypertension, thoracic aortic aneurysm, insulin dependent diabetes, iron deficiency anemia, generalized debility and nonambulatory. He is a long-term [facility] resident noted to be short of breath with wheezing and brought to the emergency room for evaluation was found to have tachypnea with use of accessory muscles, tachycardia. Hospital Course Hospital Course: His labs reveal anemia with a hemoglobin of 9 and congestive heart failure with a BNP of 2480. He started on BiPAP and referred to the hospital for admission. Patient denies pain he is unaware of recent changes in his medication he admits feeling better after albuterol with Atrovent and BiPAP placement." he improved with BIPAP tx, abx and nebs/pulm toilet and is back to his baseline home O2 requirements as of last night it seems. he quickly weaned off bipap and returned to his baseline O2 requirements, wheezing gradually resolved over the next couple of days and he is now back to baseline. he did diurese some with doubling of his lasix dose and can now return to his usual home dose with careful monitoring of his weights daily and titration of his regimen per his PCP. He was a bit hyperkalemic and with CKD stage 3 not a good candidate for ACEi Tx. His urine grew Proteus and his initial blood culx's show 1/2 with strep viridans and he screened positive for MRSA. repeat bld culx's negative, suspect the viridans is only a skin contaminant. he should continue vantin for 10d and f/u with PCP for UTI. he denies chest pain, palpitations, fevers/chills; sill with some cough, nonproductive, wheezing has resolved and he has returned to baseline and stable for d/c home at this time. Physical Exam Vital Signs: Temp Pulse Resp BP Pulse Ox 97.8 F 86 21 H 117/61 90 L 03/03/17 04:00 03/03/17 04:00 03/03/17 04:00 03/03/17 04:00 03/03/17 04:00 Intake & Output 03/02/17 03/03/17 03/04/17 06:59 06:59 06:59 Intake Total 1635 931 Output Total 625 Balance 1010 931 Weight 59 kg 59.6 kg General appearance: PRESENT: no acute distress, thin, well-developed Head exam: PRESENT: atraumatic, normocephalic Respiratory exam: PRESENT: clear to auscultation roque, unlabored. ABSENT: accessory muscle use, wheezes Extremities exam: ABSENT: pedal edema, tenderness Musculoskeletal exam: ABSENT: ambulatory Psychiatric exam: PRESENT: appropriate affect, normal mood Results Laboratory Results: 03/03/17 05:03 03/03/17 05:03 03/03/17 03/03/17 05:03 05:03 WBC 9.4 RBC 3.65 L Hgb 8.5 L Hct 27.0 L MCV 74 L MCH 23.3 L MCHC 31.5 L RDW 18.5 H Plt Count 415 Seg Neutrophils % 81.0 H Lymphocytes % 7.5 L Monocytes % 9.9 Eosinophils % 1.4 Basophils % 0.2 Absolute Neutrophils 7.6 Absolute Lymphocytes 0.7 Absolute Monocytes 0.9 Absolute Eosinophils 0.1 Absolute Basophils 0.0 Sodium 135.5 L Potassium 4.1 Chloride 97 L Carbon Dioxide 31 H Anion Gap 8 BUN 35 H Creatinine 1.10 Est GFR ( Amer) > 60 Est GFR (Non-Af Amer) > 60 Glucose 41 L Calcium 8.1 L Magnesium 1.9 Impressions: Chest X-Ray 02/27/17 18:39 IMPRESSION: No consolidation or pleural effusion. Transfer Plan - Disposition Transfer Plan: return to [facility]; f/u wtih PCP in 1-2 wks for routine hospital f/u - Time Spent with Patient Time spent with patient: Greater than 30 Minutes Qualifiers PATEINT BEING DISCHARGED WITH ANY OF THE FOLLOWING DIAGNOSIS?: No VTE patient discharged on overlapping Therapy?: No Reason(s) for not prescribing Overlap Therapy:: Not indicated
[2017-03-03] MEDS: ASPIRIN 81 MG TABLET, ENT COATED PO SCH (09:34)
[2017-03-03] MEDS: FERROUS SULFATE 325 MG TABLET PO SCH (09:34)
[2017-03-03] MEDS: MULTIVITAMIN TABLET PO SCH (09:35)
[2017-03-03] MEDS: FINASTERIDE 5 MG TABLET PO SCH (09:35)
[2017-03-03] MEDS: DOCUSATE SODIUM 100 MG CAPSULE PO SCH (09:35)
[2017-03-03] MEDS: GUAIFENESIN 600 MG TABLET.SA PO SCH (09:35)
[2017-03-03] MEDS: GABAPENTIN 100 MG CAPSULE PO SCH (09:35)
[2017-03-03] MEDS: FUROSEMIDE 20 MG TABLET PO SCH (09:35)
[2017-03-03] MEDS: FLUOXETINE HCL 20 MG CAPSULE PO SCH (09:35)
[2017-03-03] MEDS: IRON POLYSACCHARIDES COMPLEX 150 MG CAPSULE PO SCH (09:36)
[2017-03-03] MEDS: FLUTICASONE/SALMETEROL DISKUS 250-50 MCG/DOSE IH SCH (09:36)
[2017-03-03] MEDS: RANOLAZINE 500 MG TAB.SR.12H PO SCH (09:36)
[2017-03-03] MEDS: POLYETHYLENE GLYCOL 3350 POWDER 17 GM/1 PACKET PO PRN (09:44)
[2017-03-03] MEDS: INSULIN LISPRO 100 UNIT/ML 3 ML VIAL SUBCUT PRN (12:49)
[2017-03-03] MEDS ORDERED: POLYETHYLENE GLYCOL 3350 POWDER 17 GM/1 PACKET PO PRN (14:23)
[2017-03-03 17:16] VITALS: BP 108/52
== END 2017-03-03 18:21 | DRG 189 ==
LOC: ER 18:34 → EH 20:29 → UNDOADMIN 20:44 → EH 20:44 → 4S 22:08
PROVIDERS: ADMIT Internal Medicine; ATTEND Internal Medicine
PROC: 5A09457 Assistance with Respiratory Ventilation, 24-96 Consecutive Hours, Continuous Positive Airway Pressure (ICD-10-PCS; principal; 2017-02-27)
DX: J96.22 Acute and chronic respiratory failure with hypercapnia (principal); I50.43 Acute on chronic combined systolic (congestive) and diastolic (congestive) heart failure; I13.0 Hypertensive heart and chronic kidney disease with heart failure and stage 1 through stage 4 chronic kidney disease, or unspecified chronic kidney disease; J44.1 Chronic obstructive pulmonary disease with (acute) exacerbation; N39.0 Urinary tract infection, site not specified; E44.0 Moderate protein-calorie malnutrition; E87.1 Hypo-osmolality and hyponatremia; Z68.1 Body mass index [BMI] 19.9 or less, adult; E11.22 Type 2 diabetes mellitus with diabetic chronic kidney disease; N18.3 Chronic kidney disease, stage 3 (moderate); B96.4 Proteus (mirabilis) (morganii) as the cause of diseases classified elsewhere; E87.5 Hyperkalemia; D50.9 Iron deficiency anemia, unspecified; I71.2 Thoracic aortic aneurysm, without rupture; E78.5 Hyperlipidemia, unspecified; I25.10 Atherosclerotic heart disease of native coronary artery without angina pectoris; F32.9 Major depressive disorder, single episode, unspecified; Z79.4 Long term (current) use of insulin; Z79.899 Other long term (current) drug therapy; Z87.891 Personal history of nicotine dependence; Z88.8 Allergy status to other drugs, medicaments and biological substances
CPT/HCPCS: 36415; 71010; 80048; 80053; 81001; 82607; 82728; 82746; 82803; 82962; 83540; 83550; 83605; 83735; 83880; 84484; 85025; 85045; 85610; 87040; 87077; 87086; 87088; 87186; 94660; 94667; 94668; 99291; G8978-GP; G8979-GP; J0696; J1644; J1815; J1940; J2930; J3475; J3490; J7620

== ENCOUNTER 2017-03-27 08:05 | Inpatient (IN) | payer MEDICARE, MEDICAID ==
[2017-03-27 09:00] LABS: VENOUS BLOOD BASE EXCESS 8.6 mmol/L; VENOUS BLOOD HCO3 36.3 mmol/L (20-32); VENOUS BLOOD PH 7.35 (7.30-7.42)
[2017-03-27 09:01] LABS: VENOUS BLOOD PCO2 67.5 mmHg (35-63)
[2017-03-27 09:02] LABS: PROTHROMBIN TIME 13.1 SEC (11.4-15.4)
[2017-03-27 09:11] LABS: ABSOLUTE MONOCYTES (AUTO) 0.4 10^3/uL (0.1-1.4); ABSOLUTE NEUT (AUTO) 6.4 10^3/uL (1.7-8.2); ALANINE AMINOTRANSFERASE 17 U/L (21-72); ALBUMIN 3.2 g/dL (3.5-5.0); ALKALINE PHOSPHATASE 90 U/L (38-126); ANION GAP 7 (5-19); ASPARTATE AMINO TRANSFERASE 22 U/L (17-59); BASOPHILS % (AUTO) 0.3 % (0-2); BILIRUBIN,DIRECT 0.4 mg/dL (0.0-0.4); BILIRUBIN,TOTAL 0.5 mg/dL (0.2-1.3); BLOOD UREA NITROGEN 25 mg/dL (7-20); CALCIUM 8.6 mg/dL (8.4-10.2); CARBON DIOXIDE 33 mmol/L (22-30); CHLORIDE 98 mmol/L (98-107); CREATININE RESULT 1.15 mg/dL (0.52-1.25); EOSINOPHILS % (AUTO) 0.2 % (0-6); GLUCOSE 107 mg/dL (75-110); HEMATOCRIT 32.7 % (37.9-51.0); HEMOGLOBIN 10.2 g/dL (13.5-17.0); HGB HCT DIFFERENCE -2.1; LYMPHOCYTES % (AUTO) 12.8 % (13-45); MEAN CORPUSCULAR HEMOGLOBIN 24.3 pg (27.0-33.4); MEAN CORPUSCULAR HGB CONC 31.2 g/dL (32.0-36.0); MONOCYTES % (AUTO) 4.9 % (3-13); POTASSIUM 5.1 mmol/L (3.6-5.0); SEGMENTED NEUTROPHILS % (AUTO) 81.8 % (42-78); SODIUM 138.1 mmol/L (137-145); TOTAL PROTEIN 7.4 g/dL (6.3-8.2); WHITE BLOOD COUNT 7.9 10^3/uL (4.0-10.5)
[2017-03-27 09:22] LABS: MEAN CORPUSCULAR VOLUME 78 fl (80-97)
--- NOTE | 2017-03-27 10:06 | RADIOLOGY REPORT (SQ) ---
EXAM DESCRIPTION: CHEST PA/LAT COMPLETED DATE/TIME: 03/27/2017 9:50 am REASON FOR STUDY: sepsis COMPARISON: 10/28/2016. NUMBER OF VIEWS: Two view. TECHNIQUE: Frontal and lateral radiographic views of the chest acquired. LIMITATIONS: None. FINDINGS: LUNGS AND PLEURA: Chronic scarring. No infiltrates, masses or pneumothorax. No pleural ef fusion. Attenuated blood vessels and flattened aubree-diaphragms. MEDIASTINUM AND HILAR STRUCTURES: No masses. No contour abnormalities. HEART AND VASCULAR STRUCTURES: Heart normal in size and contour. No evidence for failure. BONES: No acute findings. HARDWARE: None in the chest. OTHER: No other significant finding. IMPRESSION: COPD. STABLE CHRONIC SCARRING. NO ACUTE RADIOGRAPHIC FINDING IN THE CHEST. TECHNICAL DOCUMENTATION: JOB ID: [id number] [employer]- All Rights Reserved
[2017-03-27 10:29] LABS: APPEARANCE,URINE CLOUDY; BILIRUBIN,URINE NEGATIVE (NEGATIVE); GLUCOSE, URINE NEGATIVE (NEGATIVE); KETONES,URINE NEGATIVE (NEGATIVE); LEUKOCYTE ESTERASE,URINE LARGE (NEGATIVE); NITRITE,URINE POSITIVE (NEGATIVE); PROTEIN,URINE 30 mg/dL (NEGATIVE); URINE SPECIFIC GRAVITY 1.012; UROBILINOGEN,URINE NEGATIVE mg/dL (<2.0)
[2017-03-27] MEDS ORDERED: CEFTRIAXONE 1 GM/D5W RTU 50 ML IV ONE (11:44)
--- NOTE | 2017-03-27 12:20 | ER Document Report ---
ED General - General Chief Complaint: Altered Mental Status Stated Complaint: LOW BODY TEMPERATURE Time Seen by Provider: 03/27/17 08:28 TRAVEL OUTSIDE OF THE [place] IN LAST 30 DAYS: No - HPI Patient complains to provider of: Hypothermia Notes: Patient is coming in [facility] local [facility] due to hypothermia and possible altered mental status. Upon my evaluation patient is very alert understanding was going on states that he is cold. Patient is ANO 2 patient does not know the year. Patient otherwise has no complaints denies fevers chills nausea vomiting diarrhea patient does state he is hungry and wishes to have hot coffee or hot cocoa. - Related Data Allergies/Adverse Reactions: cortisone [Cortisone] Allergy (Intermediate, Verified 02/27/17 20:23) Abnormal behavior lisinopril Allergy (Verified 02/27/17 20:23) pepper Allergy (Verified 02/27/17 20:23) Home Medications: Current Home Medications Acetaminophen [Tylenol 325 mg Tablet] 650 mg PO Q6HP PRN 03/27/17 [History] Aspirin [Ecotrin 81 mg EC Tablet] 81 mg PO DAILY 03/27/17 [History] Atorvastatin Calcium [Lipitor 10 mg Tablet] 5 mg PO QHS 03/27/17 [History] Bisacodyl [Dulcolax 10 mg Supp.rect] 10 mg ND DAILYP PRN 03/27/17 [History] Carvedilol [Coreg 3.125 mg Tablet] 3.125 mg PO Q12 03/27/17 [History] Docusate Sodium [Colace 100 mg Capsule] 100 mg PO BID 03/27/17 [History] Ferrous Sulfate [Feosol 325 mg Tablet] 325 mg PO DAILY 03/27/17 [History] Finasteride [Proscar 5 mg Tablet] 5 mg PO DAILY 03/27/17 [History] Fluoxetine HCl [Prozac] 20 mg PO DAILY 03/27/17 [History] Fluticasone/Salmeterol [Advair 250-50 Diskus 28 dose] 1 inh IH Q12 03/27/17 [ History] Furosemide [Lasix] 10 mg PO DAILY 03/27/17 [History] Gabapentin [Neurontin 100 mg Capsule] 100 mg PO Q12 03/27/17 [History] Guaifenesin [Mucinex] 600 mg PO Q12 03/27/17 [History] Insulin Glargine,Hum.rec.anlog [Lantus] 100 unit SQ 15 03/27/17 [History] Insulin Lispro [Humalog Insulin 100 Unit/1 ml 3 ml Vial] 0 unit SUBCUT .SLD SCALE 03/27/17 [History] Levalbuterol HCl [Xopenex Neb 1.25 mg/3 ml Ampul] 1.25 mg NEB RTQ4HP PRN [History] Levalbuterol Tartrate [Xopenex Hfa] 1 puff IH BIDP PRN 03/27/17 [History] Melatonin/Pyridoxine [Melatonin 5 mg Tablet] 10 mg PO HSP PRN 03/27/17 [History] Mirtazapine [Remeron 15 mg Tablet] 15 mg PO QHS 03/27/17 [History] Multivitamin/Iron/Folic Acid [Centrum Adults Tablet] 1 each PO DAILY 03/27/17 [ History] Omeprazole 20 mg PO QAM 03/27/17 [History] Polyethylene Glycol 3350 [Miralax] 17 gm PO DAILYP PRN 03/27/17 [History] Ranolazine [Ranexa 500 mg Tab.sr] 500 mg PO Q12 03/27/17 [History] Tamsulosin HCl [Flomax 0.4 mg Cap.sr] 0.4 mg PO DAILY 03/27/17 [History] Umeclidinium [place] [Incruse Ellipta] 1 puff IH DAILY 03/27/17 [History] Past Medical History - Social History Smoking Status: Former Smoker Chew tobacco use (# tins/day): No Frequency of alcohol use: None Drug Abuse: None Family History: Reviewed & Not Pertinent, DM, Malignancy - Past Medical History Cardiac Medical History: Reports: Hx Hypercholesterolemia, Hx Hypertension Pulmonary Medical History: Reports: Hx Asthma, Hx Bronchitis, Hx COPD, Hx Pneumonia Denies: Hx Tuberculosis Endocrine Medical History: Reports: Hx Diabetes Mellitus Type 1, Hx Diabetes Mellitus Type 2 Renal/ Medical History: Reports: Hx Kidney Stones. Denies: Hx Peritoneal Dialysis Musculoskeltal Medical History: Reports Hx Arthritis Skin Medical History: Reports Hx MRSA Psychiatric Medical History: Reports: Hx Anxiety, Hx Depression Past Surgical History: Reports: Hx Tonsillectomy, Hx Urinary Tract Surgery - Immunizations Hx Diphtheria, Pertussis, Tetanus Vaccination: No Hx Pneumococcal Vaccination: 09/22/12 Review of Systems - Review of Systems Constitutional: Other - Hypothermia EENT: No symptoms reported Cardiovascular: No symptoms reported Respiratory: No symptoms reported Gastrointestinal: No symptoms reported Genitourinary: No symptoms reported Male Genitourinary: No symptoms reported Musculoskeletal: No symptoms reported Skin: No symptoms reported Hematologic/Lymphatic: No symptoms reported Neurological/Psychological: No symptoms reported -: Yes All other systems reviewed and negative Physical Exam - Vital signs Vitals: Resp 21 H 03/27/17 08:17 Interpretation: Other - Hypothermia - General General appearance: Appears well, Alert - HEENT Head: Normocephalic, Atraumatic Eyes: Normal Pupils: PERRL - Respiratory Respiratory status: No respiratory distress Chest status: Nontender Breath sounds: Normal Chest palpation: Normal - Cardiovascular Rhythm: Regular Heart sounds: Normal auscultation Murmur: No - Abdominal Inspection: Normal Distension: No distension Bowel sounds: Normal Tenderness: Nontender Organomegaly: No organomegaly - Back Back: Normal, Nontender - Extremities General upper extremity: Normal inspection, Nontender, Normal color, Normal ROM , Normal temperature General lower extremity: Normal inspection, Nontender, Normal color, Normal ROM , Normal temperature, Normal weight bearing. No: Navdeep's sign - Neurological Neuro grossly intact: Yes Cognition: Normal Orientation: Disoriented to time [place] Coma Scale Eye Opening: Spontaneous [place] Coma Scale Verbal: Oriented [place] Coma Scale Motor: Obeys Commands [place] Coma Scale Total: 15 Speech: Normal Motor strength normal: LUE, RUE, LLE, RLE Sensory: Normal - Psychological Associated symptoms: Normal affect, Normal mood - Skin Skin Temperature: Warm Skin Moisture: Dry Skin Color: Normal Course - Re-evaluation Re-evalutation: 03/27/17 15:04 Center for possible sepsis therefore septic workup was performed. Patient does have urinary tract infection warming blankets were applied to the patient increasing his core temperature to 95 patient does have urinary tract infection previous urine cultures were reviewed showing Proteus species sensitive to Rocephin Rocephin was given urine culture was sent patient will be admitted to the hospital service for evaluation. - Vital Signs Vital signs: Temp Pulse Resp BP Pulse Ox 95.0 F L 20 109/64 100 03/27/17 11:49 03/27/17 10:01 03/27/17 10:01 03/27/17 10:01 - Laboratory Result Diagrams: 03/27/17 08:30 03/27/17 08:30 Laboratory results interpreted by me: 03/27/17 03/27/17 03/27/17 08:30 08:30 08:30 RBC 4.20 L Hgb 10.2 L Hct 32.7 L MCV 78 L D MCH 24.3 L MCHC 31.2 L RDW 19.0 H Seg Neutrophils % 81.8 H Lymphocytes % 12.8 L VBG pCO2 67.5 H* VBG HCO3 36.3 H Potassium 5.1 H Carbon Dioxide 33 H BUN 25 H POC Glucose ALT 17 L Albumin 3.2 L Urine Protein Urine Blood Urine Nitrite Ur Leukocyte Esterase Urine Ascorbic Acid 03/27/17 03/27/17 09:51 10:00 RBC Hgb Hct MCV MCH MCHC RDW Seg Neutrophils % Lymphocytes % VBG pCO2 VBG HCO3 Potassium Carbon Dioxide BUN POC Glucose 127 H ALT Albumin Urine Protein 30 H Urine Blood LARGE H Urine Nitrite POSITIVE H Ur Leukocyte Esterase LARGE H Urine Ascorbic Acid 20 H Critical Care Note - Critical Care Note Total time excluding time spent on procedures (mins): 35 Comments: Multiple evaluations due to hypothermia. Discharge - Discharge Clinical Impression: Hypothermia Qualifiers: Encounter type: initial encounter Qualified Code(s): T68.XXXA - Hypothermia, initial encounter UTI (urinary tract infection) Qualifiers: Urinary tract infection type: acute cystitis Hematuria presence: without hematuria Qualified Code(s): N30.00 - Acute cystitis without hematuria Altered mental state Qualifiers: Altered mental status type: unspecified Qualified Code(s): R41.82 - Altered mental status, unspecified Condition: Fair Disposition: ADMITTED INPATIENT Admitting Provider: [facility] [place] [facility] Admitted: [facility]
[2017-03-27] MEDS ORDERED: GLUCAGON,HUMAN RECOMB 1 MG INJ IM PRN (13:13)
[2017-03-27] MEDS ORDERED: DEXTROSE 50%-WATER 25 GM/50 ML DISP.SYRIN IV PRN ×2 (13:13)
[2017-03-27] MEDS ORDERED: DEXTROSE 40% GEL 15 GM TUBE PO PRN ×2 (13:13)
--- NOTE | 2017-03-27 14:52 | HISTORY AND PHYSICAL E ---
History and Physical NAME: ZEFERINO URBINA : 1930 AGE: 86Y ADMITTED: 03/27/2017 ROOM: ED11 PRIMARY CARE PROVIDER: Dr. Peng. FACILITY: [facility]. CODE STATUS: DO NOT RESUSCITATE/DO NOT INTUBATE. CHIEF COMPLAINT: Confusion. HISTORY OF PRESENT ILLNESS: The patient is an 86-year-old male with a past medical history that is remarkable for COPD and recurrent urinary tract infections, well known to the hospitalist service. The patient was last on our service 02/27/17-03/03/17 due to [id number] respiratory failure. The patient presented today via EMS secondary to confusion. Apparently at the facility the patient was noted to have a change in his normal mental status and upon checking the patient's temperature, he was found to be hypothermic of 92. Upon arrival to the emergency department the patient was placed with warm blankets and his core temperature improved to 95 rectally. The patient was not tachycardic, not hypotensive, no evidence of respiratory distress. As the patient's body temperature warmed up, his cognition and mental status returned to baseline. The patient has chronic hypocapnia and, therefore, his PCO2 of 67 on venous blood gas is around the patient's baseline. Upon my assessment of the patient, he stated that he has felt poorly over the past 2 days. He denied any urinary symptoms but stated that he felt extremely weak which was consistent with previous admissions. The patient stated that he developed severe chills but denied any feelings of fever and denied any respiratory symptoms. The patient was alert and oriented to person, place, time and situation and upon conversation, the patient had been a DNR/DNI in the past and the patient has again expressed a desire for a natural by DNR/DNI. PAST MEDICAL HISTORY: Remarkable for: 1. Hypercholesterolemia. 2. Hypertension. 3. Chronic obstructive pulmonary disease. 4. Previous admissions for pneumonia. 5. Diabetes mellitus 6. Nephrolithiasis. 7. Osteoarthritis. 8. History of MRSA. 9. Depression. 10. Anxiety. 11. Recurrent urinary tract infections. 12. GERD. 13. Chronic constipation. 14. Chronic systolic congestive heart failure with an EF of 35% to 40%. 15. Diastolic dysfunction. PAST SURGICAL HISTORY: Remarkable for: 1. Tonsillectomy. 2. Cystoscopy. ALLERGIES: 1. CORTISONE. 2. LISINOPRIL. 3. PEPPER. HOME MEDICATIONS: 1. Tylenol 650 mg p.o. q.6 h. p.r.n. 2. Aspirin 81 mg p.o. daily. 3. Lipitor 5 mg p.o. every hour of sleep. 4. Dulcolax 10 mg suppositories 1 suppository daily p.r.n. 5. Coreg 3.125 mg p.o. q.12 h. 6. Colace 100 mg p.o. b.i.d. 7. Ferrous sulfate 325 mg p.o. daily. 8. Proscar 5 mg p.o. daily. 9. Prozac 20 mg p.o. daily. 10. Advair 250/50 one puff inhalation q.12 h. 11. Lasix 10 mg p.o. daily. 12. Neurontin 100 mg p.o. q.12 h. 13. Mucinex XR 600 mg p.o. b.i.d. 14. Lantus 15 units subcutaneous every hour of sleep. 15. NovoLog sliding scale coverage before meals and at bedtime. 16. Xopenex 1.25 mg nebs q.4 h. p.r.n. 17. Xopenex HFA 1 puff inhalation b.i.d. p.r.n. 18. Melatonin 10 mg p.o. every hour of sleep. 19. Remeron 15 mg p.o. every hour of sleep. 20. Multivitamin 1 tablet p.o. daily. 21. Omeprazole 20 mg p.o. q.a.m. 22. MiraLax 17 gm p.o. daily. 23. Ranexa 500 mg p.o. q.12 h. 24. Flomax 0.4 mg p.o. supper. 25. Incruse Ellipta 1 puff inhalation daily. SOCIAL HISTORY: The patient currently resides at [facility]. The patient is . The patient has not designated any family member. The patient does have 4 sons. The patient denies any alcohol use or illicit drug use. The patient does have a remote history of tobacco use. FAMILY MEDICAL HISTORY: The patient's mother is ; she did have diabetes and intestinal cancer. The patient's father in his 50s due to problems associated with alcoholism. The patient does have 4 sons, all of which are healthy. Unable to recall any medical problems within the siblings. REVIEW OF SYSTEMS: CONSTITUTIONAL: The patient denies any fevers, no dizziness, loss of appetite. Positive for chills and weakness. INTEGUMENTARY: Denies any diaphoresis, rash, bruising or itching. HEENT: Denies any vision or hearing loss, nasal drainage, sore throat, or headache. CARDIOVASCULAR: Denies any chest pain, edema, or heart palpitations. RESPIRATORY: Denies any cough, sputum production or hemoptysis. GASTROINTESTINAL: Denies any nausea, vomiting, abdominal pain, diarrhea, bloating, hematemesis, constipation, melena, hematochezia. GENITOURINARY: Denies any hematuria, pyuria or dysuria. MUSCULOSKELETAL: Denies any chronic joint pain. NEUROLOGIC: No seizures, tremors or loss of consciousness. HEMATOLOGICAL: Denies any alfie bleeding or easy bruising. ENDOCRINE: Denies any recent weight changes. PSYCHIATRIC: Denies suicidal or homicidal ideation. The rest of the review of the other organ systems is negative. PHYSICAL EXAMINATION: GENERAL: On examination, the patient is a well-developed, frail, chronically ill-appearing 86-year-old male who is awake, alert and oriented to person, place, time and situation. He is verbal and conversational, just a little delayed. He does not appear to be in any acute distress. VITAL SIGNS: Temperature 95.0, pulse 73, respirations 20, blood pressure 109/64, oxygen saturation is 100% on room air. SKIN: Pale and is very, very dry. He is not diaphoretic. HEENT: Pupils are equal, round, and reactive to light and accommodation. Conjunctivae are pink. Sclerae are not icteric. There are no mouth lesions. Tongue is midline. NECK: Supple. No JVD. No palpable lymphadenopathy or thyromegaly. CARDIOVASCULAR: Heart is regular. There is no murmur or rub. CHEST: Clear, symmetrical and unlabored. ABDOMEN: Soft, nontender, nondistended. Bowel sounds are present. No palpable hepatomegaly. BACK: No CVA tenderness or sacral edema. EXTREMITIES: No clubbing, cyanosis or edema or peripheral signs of embolization. There are +1 pedal pulses are noted bilaterally. PSYCHIATRIC: Appropriate affect. Pleasant mood. Just a little delayed. DIAGNOSTICS: Labs are as follows: Hematology obtained on 03/27/2017: WBC 7.9, hemoglobin 10.2, hematocrit 32.7, platelet count is 409,000. Coagulation obtained on 03/27/2017: PT 13.1, INR 0.93. Venous blood gas obtained on 03/27/2017: pH of 7.35, PCO2 of 37.5, bicarbonate is 36.6. Chemistry obtained on 03/27/2017: Sodium 138, potassium 5.1, chloride 98, carbon dioxide 33, BUN 25, creatinine 1.15, glucose 107, lactic acid 1.4, calcium 8.6, bilirubin 0.5, AST 22, ALT 17, alk phos 90, total protein 7.4, albumin 3.2. Urinalysis obtained on 03/27/2017: Color yellow, appearance cloudy, pH 5.0, specific gravity is 1.012, protein 30, glucose negative, ketones negative, occult blood large, nitrite negative, bilirubin negative, urobilinogen negative, leukocyte esterase is large, WBC is greater than 182, RBC is greater than 182, bacteria trace. Blood cultures obtained on 03/27/2017 are pending. Urine culture obtained on 03/27/2017 is pending. IMPRESSION AND PLAN: 1. Urinary tract infection. It appears the patient has had Proteus in the past. Will continue Rocephin, as he did get a dose in the ER and continue to follow. Will place the patient on a Thiago Hugger. 2. Sepsis secondary to #1. The patient's core temperature has improved. Will continue antibiotic coverage and follow. 3. Chronic hypocapnic respiratory failure. The patient's PCO2 is at baseline. Will continue his CPAP at night. 4. Chronic obstructive pulmonary disease. Will continue the patient's home inhalers and follow. 5. Hypertension. The patient's blood pressure is in a good range. Will continue current medications. 6. Diabetes mellitus type 2. Will continue the patient's home insulin as well as sliding scale coverage. 7. Benign prostatic hyperplasia. Will continue the patient's home medication. 8. Chronic constipation. Will continue the patient's home cathartics. 9. DVT Prophylaxis. Will continue subcutaneous heparin. 10. Chronic systolic congestive heart failure. The patient appears euvolemic at this time. Will continue the patient's home medications. 11. Chronic diastolic dysfunction. The patient appears compensated at this time. DISPOSITION: The patient is a DO NOT RESUSCITATE/DO NOT INTUBATE. Pending patient's symptomatology and diagnostic findings, will evaluate in the a.m. The patient can be admitted to inpatient IMCU, as the patient's expected length of stay will surpass 2 midnights. Time spent on this admission including assessment, plan, physical examination, patient education and review of records is 45 minutes. DICTATING PHYSICIAN: MARK MONTENEGRO NP [id number] PHY#: [id number] ID: [id number] JOB#: [id number] ACCT: [id number] cc:SHABNAM RODRIGUEZ M.D., MICHAEL NP >
[2017-03-27] MEDS: HEPARIN SOD (PORCINE) 5,000 UNIT/ML 1 ML SYRINGE SUBCUT SCH ×2 (15:25→22:35)
[2017-03-27] MEDS ORDERED: ACETAMINOPHEN 325 MG TABLET PO PRN (15:42)
[2017-03-27] MEDS ORDERED: BISACODYL 10 MG SUPP.RECT PR PRN (15:42)
[2017-03-27] MEDS ORDERED: (PENDING PHARMACY ID) (Polyethylene Glycol 3350 [Miralax] 17 GM) PO PRN (15:42)
[2017-03-27] MEDS ORDERED: LEVALBUTEROL HCL NEB 1.25 MG/3 ML AMPUL NEB PRN (15:42)
[2017-03-27] MEDS ORDERED: POLYETHYLENE GLYCOL 3350 POWDER 17 GM/1 PACKET PO PRN (15:48)
--- NOTE | 2017-03-27 17:06 | EKG REPORT ---
SEVERITY:- ABNORMAL ECG - SINUS RHYTHM RIGHT BUNDLE BRANCH BLOCK LAFB : Confirmed by: Pedrito Jefferson MD 27-Mar-2017 17:05:38
[2017-03-27] MEDS: DOCUSATE SODIUM 100 MG CAPSULE PO SCH (19:37)
[2017-03-27] MEDS: TAMSULOSIN HCL 0.4 MG CAP.SR.24H PO SCH (19:37)
[2017-03-27] MEDS ORDERED: INSULIN GLARGINE,HUM.REC.ANLOG 1,000 UNIT/10 ML UNIT SUBCUT SCH (22:00)
[2017-03-27] MEDS ORDERED: (PENDING PHARMACY ID) (Guaifenesin [Mucinex] 600 MG) PO SCH (22:00)
[2017-03-27] MEDS: MIRTAZAPINE 15 MG TABLET PO SCH (22:33)
[2017-03-27] MEDS: ATORVASTATIN CALCIUM 10 MG TABLET PO SCH (22:34)
[2017-03-27] MEDS: RANOLAZINE 500 MG TAB.SR.12H PO SCH (22:34)
[2017-03-27] MEDS: GABAPENTIN 100 MG CAPSULE PO SCH (22:34)
[2017-03-27] MEDS: CARVEDILOL 3.125 MG TABLET PO SCH (22:35)
[2017-03-27] MEDS: GUAIFENESIN 600 MG TABLET.SA PO SCH (22:36)
[2017-03-27] MEDS ORDERED: FLUTICASONE/SALMETEROL DISKUS 250-50 MCG/DOSE IH ONE (22:39)
[2017-03-27] MEDS: FLUTICASONE/SALMETEROL DISKUS 250-50 MCG/DOSE IH SCH (22:44)
[2017-03-28] MEDS: HEPARIN SOD (PORCINE) 5,000 UNIT/ML 1 ML SYRINGE SUBCUT SCH ×3 (06:03→22:20)
--- NOTE | 2017-03-28 09:12 | PROGRESS NOTE E ---
Progress Note NAME: ZEFERINO URBINA : 1930 AGE: 86Y DATE: 03/28/2017 ROOM: 307 SUBJECTIVE: The patient is siting up eating breakfast this morning. The patient states that his breakfast "is the best thing that has happened to him in a long time." The patient is devouring his tray, stating that he was very hungry. Overnight the patient's glucose did drop to 37 and he received some D50. The patient denies any nausea, vomiting, diarrhea, shortness of breath, dizziness, chest pain. The symptoms that brought the patient to the emergency department he stated have resolved, and the patient does not voice any other concerns at this time. REVIEW OF SYSTEMS: The rest of the review of systems is negative. MEDICATIONS: Medications have been reviewed. OBJECTIVE: GENERAL: The patient is an 86-year-old male who is awake, alert, and oriented to person, place, time, and situation. He is verbal, conversational, does not appear to be in any acute distress. VITAL SIGNS: As follows: Temperature is 98.4, pulse 89, respirations 20, blood pressure is 100/53, oxygen saturation is 96% on 1.5 L nasal cannula. SKIN: Warm and dry. No rash, not diaphoretic. HEENT: Pupils equal, round, and reactive to light and accommodation. Conjunctivae pink. No JVP. CARDIOVASCULAR: Heart is regular. There is no murmur or rub. CHEST: Clear, symmetrical, unlabored. ABDOMEN: Soft, nontender, nondistended. BACK: No CVA tenderness or sacral edema. EXTREMITIES: No clubbing, cyanosis, edema. PSYCHIATRIC: Appropriate affect. Pleasant mood. DIAGNOSTICS: Lab values are as follows. Hematology obtained on 03/27/2017: WBCs are 7.9, hemoglobin is 10.2, hematocrit is 32.7, platelet count is 409,000. Chemistry obtained on 03/27/2017: Sodium is 138, potassium 4.1, chloride is 98, carbon dioxide is 33, BUN 25, creatinine 1.17, glucose 107, lactic acid is 1.4, calcium is 8.7, AST 22, ALT is 17, alk phos 90, total protein 7.4, albumin 3.2. IMPRESSION AND PLAN: 1. URINARY TRACT INFECTION. The patient has grown Proteus and the past two organisms are currently identified. Will continue Rocephin for now since the patient has made significant improvement. 2. SEPSIS SECONDARY TO #1. The patient's core temperature has improved. Continue antibiotic coverage. 3. CHRONIC HYPERCAPNIC RESPIRATORY FAILURE. PCO2 is at baseline. Continue as needed. 4. CHRONIC OBSTRUCTIVE PULMONARY DISEASE. Will continue the patient's home inhalers. 5. HYPERTENSION. The patient's blood pressures have been in a decent range. Will continue to follow. 6. DIABETES MELLITUS, TYPE 2. Will continue the patient's home insulin as well as sliding-scale coverage. 7. BENIGN PROSTATIC HYPERPLASIA. Will continue the patient's home medication. 8. CHRONIC CONSTIPATION. Will continue the home cathartics. 9. CHRONIC DIASTOLIC DYSFUNCTION. The patient is compensated at this time. 10. CHRONIC SYSTOLIC CONGESTIVE HEART FAILURE. The patient appears 11. DVT PROPHYLAXIS. Will continue subcutaneous heparin. DISPOSITION: THE PATIENT IS A DO NOT RESUSCITATE/DO NOT INTUBATE. Pending the patient's symptomatology and diagnostic findings, will re-evaluate in the a.m. for possible transfer. Time spent on this followup, including assessment/plan, physical examination, patient education, is 25 minutes. DICTATING PHYSICIAN: MARK MONTENEGRO NP [id number] PHY#: [id number] ID: [id number] JOB#: [id number] ACCT: [id number] cc: > MTDD
[2017-03-28] MEDS: CARVEDILOL 3.125 MG TABLET PO SCH ×2 (09:37→22:21)
[2017-03-28] MEDS: MULTIVITAMIN TABLET PO SCH (09:37)
[2017-03-28] MEDS: GABAPENTIN 100 MG CAPSULE PO SCH ×2 (09:38→22:22)
[2017-03-28] MEDS: FERROUS SULFATE 325 MG TABLET PO SCH (09:38)
[2017-03-28] MEDS: FUROSEMIDE 20 MG TABLET PO SCH (09:38)
[2017-03-28] MEDS: FINASTERIDE 5 MG TABLET PO SCH (09:39)
[2017-03-28] MEDS: DOCUSATE SODIUM 100 MG CAPSULE PO SCH ×2 (09:39→18:09)
[2017-03-28] MEDS: FLUOXETINE HCL 20 MG CAPSULE PO SCH (09:39)
[2017-03-28] MEDS: ASPIRIN 81 MG TABLET, ENT COATED PO SCH (09:40)
[2017-03-28] MEDS: LANSOPRAZOLE 15 MG TAB.RAP.DR PO SCH (09:40)
[2017-03-28] MEDS: FLUTICASONE/SALMETEROL DISKUS 250-50 MCG/DOSE IH SCH ×2 (09:40→22:20)
[2017-03-28] MEDS: GUAIFENESIN 600 MG TABLET.SA PO SCH ×2 (09:40→22:20)
[2017-03-28] MEDS: RANOLAZINE 500 MG TAB.SR.12H PO SCH ×2 (09:57→22:20)
[2017-03-28] MEDS ORDERED: (PENDING PHARMACY ID) (Multivitamin/Iron/Folic Acid [Centrum Adults Tablet] 1 EACH) PO SCH (10:00)
[2017-03-28] MEDS ORDERED: CEFTRIAXONE 1 GM/D5W RTU 1 GM/50 ML RTUPB IV SCH (12:00)
[2017-03-28] MEDS: INSULIN LISPRO 100 UNIT/ML 3 ML VIAL SUBCUT PRN (12:01)
[2017-03-28] MEDS: TAMSULOSIN HCL 0.4 MG CAP.SR.24H PO SCH (18:09)
[2017-03-28] MEDS ORDERED: INSULIN GLARGINE,HUM.REC.ANLOG 300 UNIT/3 ML INSULN.PEN SUBCUT SCH ×2 (22:00)
[2017-03-28] MEDS: MIRTAZAPINE 15 MG TABLET PO SCH (22:19)
[2017-03-28] MEDS: ATORVASTATIN CALCIUM 10 MG TABLET PO SCH (22:21)
[2017-03-29 04:55] LABS: HEMOGLOBIN 9.2 g/dL (13.5-17.0); HGB HCT DIFFERENCE -1.4; MEAN CORPUSCULAR HEMOGLOBIN 24.3 pg (27.0-33.4); MEAN CORPUSCULAR HGB CONC 31.9 g/dL (32.0-36.0); MEAN CORPUSCULAR VOLUME 76 fl (80-97); RED CELL DISTRIBUTION WIDTH 18.6 % (11.5-14.0); WHITE BLOOD COUNT 7.8 10^3/uL (4.0-10.5)
[2017-03-29 05:16] LABS: ANION GAP 9 (5-19); BLOOD UREA NITROGEN 26 mg/dL (7-20); CALCIUM 8.1 mg/dL (8.4-10.2); CARBON DIOXIDE 27 mmol/L (22-30); CHLORIDE 99 mmol/L (98-107); CREATININE RESULT 1.08 mg/dL (0.52-1.25); GLUCOSE 167 mg/dL (75-110); MAGNESIUM 1.9 mg/dL (1.6-2.3); POTASSIUM 4.5 mmol/L (3.6-5.0); SODIUM 135.2 mmol/L (137-145)
[2017-03-29] MEDS: HEPARIN SOD (PORCINE) 5,000 UNIT/ML 1 ML SYRINGE SUBCUT SCH ×2 (06:15→14:05)
[2017-03-29] MEDS: LANSOPRAZOLE 15 MG TAB.RAP.DR PO SCH (08:22)
--- NOTE | 2017-03-29 09:52 | TRANSFER SUMMARY E ---
Transfer Summary NAME: ZEFERINO URBINA : 1930 AGE: 86Y ADMITTED: 03/27/2017 TRANSFERRED: 03/29/2017 CODE STATUS: DO NOT RESUSCITATE/DO NOT INTUBATE with portable DNR. PRIMARY CARE PROVIDER: Judson Peng [facility] DIAGNOSES: 1. Urinary tract infection most likely Proteus. 2. Sepsis secondary to #1 which is resolved. 3. Chronic hypercapnic respiratory failure. 4. Chronic obstructive pulmonary disease. 5. Hypertension. 6. Diabetes mellitus type 2. 7. Benign prostatic hyperplasia. 8. Chronic constipation. 9. Chronic diastolic dysfunction. 10. Chronic systolic congestive heart failure. DISCHARGE MEDICATIONS: 1. Augmentin 875 q.12.h x 20 doses. 2. Tylenol 650 mg p.o. q.6 hours p.r.n. 3. Aspirin 81 mg p.o. daily. 4. Lipitor 5 mg p.o. at hour of sleep. 5. Dulcolax 10 mg suppository daily as needed. 6. Coreg 3.125 mg p.o. q.12 hours. 7. Colace 100 mg p.o. b.i.d. 8. Ferrous sulfate 325 mg p.o. daily. 9. Proscar 5 mg p.o. daily. 10. Prozac 20 mg p.o. daily. 11. Advair 250/50 one puff inhalation q.12 hours. 12. Lasix 10 mg p.o. daily. 13. Neurontin 100 mg p.o. q.12 hours. 14. Mucinex 600 mg p.o. q.12 hours. 15. Lantus 15 units subcutaneous at hour of sleep. 16. Humalog sliding scale coverage before meals and at bedtime. 17. Xopenex 1.25 mg nebs q.4 hours p.r.n. 18. Xopenex HFA 1-2 puffs inhalation b.i.d. p.r.n. 19. Melatonin 10 mg p.o. at hour of sleep. 20. Remeron 15 mg p.o. at hour of sleep. 21. Centrum 1 tablet p.o. daily. 22. Omeprazole 20 mg p.o. q.a.m. 23. MiraLax 17 gm p.o. daily p.r.n. 24. Ranexa 500 mg p.o. q.12 hours. 25. Flomax 0.4 mg p.o. daily. 26. Incruse Ellipta 1 puff inhalation daily. DIET: Regular as tolerated. ACTIVITY: As per rehab standards. HISTORY OF PRESENT ILLNESS: The patient is an 86-year-old male that is known to the hospitalist service due to history of recurrent urinary tract infections. The patient presented to the emergency department secondary to confusion. Prior to this admission, the patient was last on our service 02/27/2017- 03/03/2017 due to bodos-pn-tydzacb respiratory failure. The patient presented the day of admission via EMS due to being found confused at his facility. Apparently the patient had change in his normal mentation and upon checking the patient's temperature, he was found to be hypothermic at 92. Upon arrival to the emergency department, the patient was placed on warming blankets and his core temperature improved to 99. Patient was not tachycardiac and not hypotensive. No evidence of respiratory distress. However, as the patient's body temperature warmed up, his cognition improved and returned to baseline. The patient has chronic hypercapnia and therefore his PcO2 of 67 on venous blood gas was at his baseline. Upon assessment, the patient stated that he had felt poorly for 2 days. He denied any urinary tract symptoms but felt extremely weak which was consistent with previous admissions. The patient stated that he developed severe chills but denied any feelings of fever and denied any respiratory symptoms. The patient was alert and oriented on presentation and expresses desire for a natural and therefore DNR/DNI was signed. HOSPITAL COURSE: The patient was admitted to continuous telemetry unit. The patient was placed on IV Rocephin for which he tolerated well. The patient's temperature returned to baseline without a bear hugger or intervention such as that, only treating the underlying infection. The patient was gently hydrated overnight during admission and the patient's electrolytes remained in a good range. The patient did have 1 low of hypoglycemia 37. The patient's basal insulin was not adjusted; however, his diet was liberalized at his request. The patient was given a regular diet and has ate almost 100% of all meals with this. The patient's blood cultures remained negative and the patient's urine culture is consistent with a gram negative raúl but given that the patient has responded, we will go ahead and proceed to send him out on Ceftin since he has been responsive to Rocephin. DIAGNOSTICS: Lab values are as follow: Hematology obtained on 03/29/2017: WBCs are 7.8, hemoglobin is 9.2, hematocrit is 29.0, platelet count is 384,000. Coagulation obtained on 03/27/2017: PT is 13.1. INR is 0.93. Venous blood gas obtained on 03/27/2017: pH is 7.35, pCO2 is 37.5, bicarb is 36.3. Chemistry obtained on 03/29/2017: Sodium is 135, potassium is 4.5, chloride is 99, carbon dioxide 27, BUN 26, creatinine is 1.08, glucose 106, lactic acid is 1.4, calcium is 8.1, magnesium is 9.1, bilirubin is 0.5, AST 22, ALT is 17, alk phos 90, total protein is 7.4, albumin 3.2. Urinalysis obtained on 03/27/2017: Color yellow, appearance cloudy, pH 5.0, specific gravity is 1.012, protein 30, glucose negative, ketones negative, occult blood large, nitrite positive, bilirubin negative, urobilinogen negative, leukocyte esterase is large, WBCs are greater than 182, RBC is greater than 182, bacteria trace, WBCs many, ascorbic acid is 20. Microbiology: Blood cultures obtained on 03/27/2017 reveal no growth. Urine culture obtained on 03/27/2017 reveals gram negative raúl. Chest x-ray obtained on 03/27/2017 reveals COPD, stable chronic scarring. No acute radiographic findings of the chest. PHYSICAL EXAMINATION: GENERAL: On examination, the patient is a frail, chronically ill appearing, 86-year-old male who is awake, alert, and oriented to person, place, time, and situation. He is verbal and conversational but just little delayed. Does not appear to be in any acute distress. VITAL SIGNS: Temperature 97.8, pulse 81, respirations 20, blood pressure 126/63, oxygen saturation is 98% on 1 L nasal cannula. SKIN: Warm and dry. No rash. He is not diaphoretic. HEENT: Pupils equal, round, reactive to light and accommodation. Conjunctivae are pink. No JVP. CARDIOVASCULAR: Heart is regular with no murmur or rub. CHEST: The patient does have some coarse lung sounds but does improve with cough. Symmetrical, unlabored. ABDOMEN: Soft, nontender, nondistended. BACK: No CVA tenderness or sacral edema. EXTREMITIES: No clubbing, cyanosis, or edema. PSYCHIATRIC: Appropriate affect. Pleasant mood. DISCHARGE PLANNING: The patient will follow up with his primary care provider within 1 week for hospital followup. Time spent on this discharge including assessment, plan, physical examination, patient education, and resource alignment is 35 minutes. DICTATING PHYSICIAN: MARK MONTENEGRO NP [id number] PHY#: [id number] ID: [id number] JOB#: [id number] ACCT: [id number] cc:MARK MONTENEGRO NP > [facility]
[2017-03-29] MEDS: GABAPENTIN 100 MG CAPSULE PO SCH (09:56)
[2017-03-29] MEDS: RANOLAZINE 500 MG TAB.SR.12H PO SCH (09:56)
[2017-03-29] MEDS: GUAIFENESIN 600 MG TABLET.SA PO SCH (09:56)
[2017-03-29] MEDS: MULTIVITAMIN TABLET PO SCH (09:56)
[2017-03-29] MEDS: FLUOXETINE HCL 20 MG CAPSULE PO SCH (09:57)
[2017-03-29] MEDS: FINASTERIDE 5 MG TABLET PO SCH (09:57)
[2017-03-29] MEDS: ASPIRIN 81 MG TABLET, ENT COATED PO SCH (09:57)
[2017-03-29] MEDS: CARVEDILOL 3.125 MG TABLET PO SCH (09:57)
[2017-03-29] MEDS: FERROUS SULFATE 325 MG TABLET PO SCH (09:57)
[2017-03-29] MEDS: FLUTICASONE/SALMETEROL DISKUS 250-50 MCG/DOSE IH SCH (09:58)
[2017-03-29] MEDS: DOCUSATE SODIUM 100 MG CAPSULE PO SCH (09:58)
[2017-03-29] MEDS: FUROSEMIDE 20 MG TABLET PO SCH (09:58)
[2017-03-29] MEDS: INSULIN LISPRO 100 UNIT/ML 3 ML VIAL SUBCUT PRN (12:41)
[2017-03-29 16:16] VITALS: BP 136/69
== END 2017-03-29 16:18 | DRG 872 ==
LOC: ER 08:05 → EH 12:57 → 3N 18:30
PROVIDERS: ADMIT Family Medicine; ATTEND Family Medicine
DX: A41.9 Sepsis, unspecified organism (principal); N39.0 Urinary tract infection, site not specified; J96.12 Chronic respiratory failure with hypercapnia; I50.32 Chronic diastolic (congestive) heart failure; I11.0 Hypertensive heart disease with heart failure; B96.4 Proteus (mirabilis) (morganii) as the cause of diseases classified elsewhere; J44.9 Chronic obstructive pulmonary disease, unspecified; E11.9 Type 2 diabetes mellitus without complications; N40.0 Benign prostatic hyperplasia without lower urinary tract symptoms; K59.09 Other constipation; Z79.82 Long term (current) use of aspirin; Z79.4 Long term (current) use of insulin; Z79.899 Other long term (current) drug therapy; Z66 Do not resuscitate; Z87.442 Personal history of urinary calculi
CPT/HCPCS: 36415; 71020; 80048; 80053; 81001; 82803; 82962; 83605; 83735; 85025; 85027; 85610; 87040; 87086; 87088; 87186; 93005; 93010; 96365; 99291; G8978-GP; G8979-GP; J0696; J1644; J1815; J3490

== ENCOUNTER 2017-04-09 02:00 | Emergency (ER) | payer MEDICARE, MEDICAID ==
[2017-04-09] MEDS ORDERED: IPRATROPIUM/ALBUTEROL 0.5-2.5 MG/3 ML AMPUL NEB ONE (03:11)
[2017-04-09] MEDS ORDERED: MAGNESIUM SULFATE/D5W 1 GM/100 ML RTUPB IV ONE (03:15)
[2017-04-09] MEDS ORDERED: NORMAL SALINE 1000 ML 1,000 ML IV ONE (03:15)
[2017-04-09] MEDS ORDERED: NORMAL SALINE 500 ML IV ONE (03:17)
[2017-04-09 04:04] LABS: HEMATOCRIT 30.7 % (37.9-51.0); HEMOGLOBIN 9.7 g/dL (13.5-17.0); HGB HCT DIFFERENCE -1.6; MEAN CORPUSCULAR HEMOGLOBIN 24.4 pg (27.0-33.4); MEAN CORPUSCULAR HGB CONC 31.4 g/dL (32.0-36.0); MEAN CORPUSCULAR VOLUME 78 fl (80-97); RED BLOOD COUNT 3.97 10^6/uL (4.35-5.55); RED CELL DISTRIBUTION WIDTH 17.8 % (11.5-14.0); WHITE BLOOD COUNT 11.2 10^3/uL (4.0-10.5)
[2017-04-09 04:17] LABS: ALANINE AMINOTRANSFERASE 18 U/L (21-72); ALKALINE PHOSPHATASE 96 U/L (38-126); ANION GAP 6 (5-19); ASPARTATE AMINO TRANSFERASE 17 U/L (17-59); BILIRUBIN,DIRECT 0.5 mg/dL (0.0-0.4); BILIRUBIN,TOTAL 0.5 mg/dL (0.2-1.3); BLOOD UREA NITROGEN 26 mg/dL (7-20); CALCIUM 8.6 mg/dL (8.4-10.2); CARBON DIOXIDE 31 mmol/L (22-30); CHLORIDE 96 mmol/L (98-107); CREATININE RESULT 1.25 mg/dL (0.52-1.25); GLUCOSE 331 mg/dL (75-110); POTASSIUM 5.3 mmol/L (3.6-5.0); SODIUM 133.3 mmol/L (137-145); TOTAL PROTEIN 7.1 g/dL (6.3-8.2)
[2017-04-09 04:18] LABS: CREATINE KINASE < 20 U/L (55-170)
[2017-04-09 04:25] LABS: BAND NEUTROPHILS % (MANUAL) 1 % (3-5); BASOPHILS % (MANUAL) 0 % (0-2); EOSINOPHILS % (MANUAL) 0 % (0-6); LYMPHOCYTES % (MANUAL) 5 % (13-45); TOTAL CELLS COUNTED 100
[2017-04-09 04:26] LABS: ANISOCYTOSIS 1+; MICROCYTOSIS SLIGHT
--- NOTE | 2017-04-09 04:26 | RADIOLOGY REPORT (SQ) ---
EXAM DESCRIPTION: CHEST SINGLE VIEW COMPLETED DATE/TIME: 04/09/2017 3:42 am REASON FOR STUDY: sob COMPARISON: 03/27/2017. 10/03/2016 with. EXAM PARAMETERS: NUMBER OF VIEWS: One view. TECHNIQUE: Single frontal radiographic view of the chest acquired. RADIATION DOSE: NA LIMITATIONS: None. FINDINGS: LUNGS AND PLEURA: Tmci-vm-tjoldtzs chronic interstitial markings and/or fibrosis pattern. Moderate emphysematous hyperinflation. MEDIASTINUM AND HILAR STRUCTURES: No masses. Contour normal. HEART AND VASCULAR STRUCTURES: Heart normal in size. Normal vasculature. BONES: No acute findings. HARDWARE: None in the chest. OTHER: No other significant finding. IMPRESSION: No acute cardiopulmonary findings. Cjgr-eg-[id number] chronic interstitial lung disease/ fibrosis pattern. TECHNICAL DOCUMENTATION: JOB ID: [id number]
[2017-04-09 04:28] LABS: CREATINE KINASE MB 0.96 ng/mL (<4.55)
[2017-04-09] MEDS ORDERED: MAGNESIUM SULFATE/D5W 0 GM/0 ML RTUPB IV ONE (04:28)
[2017-04-09 04:31] LABS: TROPONIN I 0.039 ng/mL
--- NOTE | 2017-04-09 04:54 | ER Document Report ---
HPI - HPI Notes: Patient is an 86-year-old male with a history of diabetes, CAD, CKD, anemia, BPH , GERD, hypertension, COPD presents to the ED complaining of shortness of breath 1 day. Patient arrived by EMS. custodial states that he was saturating at 60% which came up to 70% on 3 L via NC. EMS placed him on 8 L via NC and his oxygen improved to 96%. Patient states that he is nonambulatory at the residential. Patient states that he was still eating and drinking without any difficulties. Patient denies any history of [place] or CVAs. Otherwise , patient states that he is feeling okay. Patient has an allergy to cortisone and lisinopril. Patient has an extensive medication list. Denies any headache , fever, neck pain/stiffness, changes in vision/speech/mentation/hearing, URI, sore throat, chest pain, palpitations, syncope, abdominal pain, nausea/vomiting/ diarrhea, urinary retention, dysuria, hematuria, numbness/tingling, muscle paralysis/weakness, or rash. - ROS Notes: REVIEW OF SYSTEMS: CONSTITUTIONAL : Denies fever, chills, or sweats. Denies recent illness. EENT: Denies eye, ear, throat, or mouth pain or symptoms. Denies nasal or sinus congestion or discharge. Denies throat, tongue, or mouth swelling or difficulty swallowing. CARDIOVASCULAR: Denies chest pain. Denies palpitations or racing or irregular heart beat. Denies ankle edema. RESPIRATORY: see hpi GASTROINTESTINAL: Denies abdominal pain or distention. Denies nausea, vomiting , or diarrhea. Denies blood in vomitus, stools, or per rectum. Denies black, tarry stools. Denies constipation. GENITOURINARY: Denies difficulty urinating, painful urination, burning, frequency, blood in urine, or discharge. MUSCULOSKELETAL: chronic pains. SKIN: Denies rash, lesions or sores. NEUROLOGICAL: Denies confusion or altered mental status. Denies passing out or loss of consciousness. Denies dizziness or lightheadedness. Denies headache. Denies weakness or paralysis or loss of use of either side. Denies problems with gait or speech. Denies sensory loss, numbness, or tingling. ALL OTHER SYSTEMS REVIEWED AND NEGATIVE. Dictation was performed using cicayda voice recognition software - REPRODUCTIVE Reproductive: DENIES: : Past Medical History - Social History Smoking Status: Former Smoker Family History: Reviewed & Not Pertinent, DM, Malignancy - Past Medical History Cardiac Medical History: Reports: Hx Hypercholesterolemia, Hx Hypertension Pulmonary Medical History: Reports: Hx Asthma, Hx Bronchitis, Hx COPD, Hx Pneumonia Denies: Hx Tuberculosis Endocrine Medical History: Reports: Hx Diabetes Mellitus Type 1, Hx Diabetes Mellitus Type 2 Renal/ Medical History: Reports: Hx Kidney Stones. Denies: Hx Peritoneal Dialysis Musculoskeltal Medical History: Reports Hx Arthritis Skin Medical History: Reports Hx MRSA Psychiatric Medical History: Reports: Hx Anxiety, Hx Depression Past Surgical History: Reports: Hx Tonsillectomy, Hx Urinary Tract Surgery - Immunizations Hx Diphtheria, Pertussis, Tetanus Vaccination: No Hx Pneumococcal Vaccination: 09/22/12 Vertical Provider Document - CONSTITUTIONAL Agree With Documented VS: Yes Notes: PHYSICAL EXAMINATION: GENERAL: Well-appearing, cachectic and in no acute distress. Communicative. A& O x3 HEAD: Atraumatic, normocephalic. EYES: Pupils equal round and reactive to light, extraocular movements intact, sclera anicteric, conjunctiva are normal. ENT: EAC clear b/l. TM's intact b/l without erythema, fluid, or perforation. Nares patent and without discharge. oropharynx clear without exudates. No tonsilar hypertrophy or erythema. Moist mucous membranes. No sinus tenderness. NECK: Normal range of motion, supple without lymphadenopathy. No rigidity/ meningismus. LUNGS: diminished breath sounds. prolonged expirations and expiratory wheezes b /l. HEART: Regular rate and rhythm without murmurs, rubs, gallops. ABDOMEN: Soft, nontender, nondistended abdomen. No guarding, no rebound. No masses appreciated. Normal bowel sounds present. No CVA tenderness bilaterally. Musculoskeletal: Ext b/l: Strength 5+/5 and equal. Extremities: No cyanosis, clubbing, or edema b/l. Peripheral pulses 2+. Capillary refill less than 3 seconds. NEUROLOGICAL: MMSE intact. Cranial nerves grossly intact. Normal speech. Normal sensory, motor exams PSYCH: Normal mood, normal affect. SKIN: Warm, Dry, normal turgor, no rashes or lesions noted. - INFECTION CONTROL TRAVEL OUTSIDE OF THE [place] IN LAST 30 DAYS: No - RESPIRATORY O2 Sat by Pulse Oximetry: 96 Course - Re-evaluation Re-evalutation: 04/09/17 06:25 Patient is an afebrile, well-hydrated, 86-year-old male who presents the ED with suspected acute exacerbation of COPD. Vitals are stable with an oxygen saturation staying above 96% on 2 L via NC. PE otherwise unremarkable for any focal neurological deficits. CBC, CMP showed some abnormalities, but were found to be running near his baseline. Unable to obtain UA, most likely due to his BPH. Chest x-ray also appeared to look like his baseline. EKG and cardiac enzymes were unremarkable at this time. Low suspicion for any ACS, PE, pneumothorax, dissection, pericarditis, sepsis, meningitis, or other emergent systemic condition at this time. Pt is aware that condition can change from initial presentation and he needs to monitor symptoms closely and seek medical attention with any acute changes. 500 mL normal saline was given along with 2 g of magnesium and a DuoNeb treatment was provided. Patient states that he feels much better than prior to arrival. Patient is tolerating p.o. intake. Case was reviewed with Dr. Roque who recommended trying to get patient admitted for observation. Reviewed the case with Dr. Singh who reviewed patient's current visit and labs and declined admission. Dr. Roque did a brief eval of the patient thereafter and is okay with discharge and close f/u with strict return precautions. No antibiotic at this time due to risk of c-dif and worsening condition. Conservative measures for symptoms otherwise. Close follow-up with his PCM in 2 -3 days. Return to the ED with any worsening/concerning symptoms otherwise as reviewed discharge. Patient is in agreement. - Vital Signs Vital signs: Temp Pulse Resp BP Pulse Ox 98.2 F 95 18 105/61 96 04/09/17 03:00 04/09/17 03:00 04/09/17 03:00 04/09/17 03:00 04/09/17 03:00 - Laboratory Result Diagrams: 04/09/17 04:00 04/09/17 04:00 Laboratory results interpreted by me: 04/09/17 04/09/17 04:00 04:00 WBC 11.2 H RBC 3.97 L Hgb 9.7 L Hct 30.7 L MCV 78 L MCH 24.4 L MCHC 31.4 L RDW 17.8 H Seg Neuts % (Manual) 93 H Band Neutrophils % 1 L Lymphocytes % (Manual) 5 L Monocytes % (Manual) 1 L Abs Neuts (Manual) 10.5 H Sodium 133.3 L Potassium 5.3 H Chloride 96 L Carbon Dioxide 31 H BUN 26 H Est GFR (Non-Af Amer) 55 L Glucose 331 H Direct Bilirubin 0.5 H ALT 18 L Creatine Kinase < 20 L Albumin 3.0 L Discharge - Discharge Clinical Impression: COPD exacerbation, Shortness of breath Condition: Stable Disposition: HOME, SELF-CARE Instructions: Chronic Obstructive Lung Disease ([facility]), Doxycycline ([facility]), Follow -Up Care ([facility]) Additional Instructions: Maintain adequate fluid/food intake Continue O2 continuously at 2L via NC as previously prescribed Take home medications as directed Take antibiotic as directed Recheck with your PCM in 2-3 days Return to the ED with any worsening symptoms and/or development of fever, headache, chest pain, palpitations, syncope, shortness of breath, trouble breathing, abdominal pain, n/v/d, blood in stool/urine,muscle weakness/paralysis , numbness/tingling, or other worsening symptoms that are concerning to you. Referrals: SHAISTA FREED MD [ACTIVE STAFF] - 04/11/17
[2017-04-09 05:28] LABS: VENOUS BLOOD BASE EXCESS 2.7 mmol/L; VENOUS BLOOD HCO3 28.9 mmol/L (20-32); VENOUS BLOOD PCO2 52.5 mmHg (35-63); VENOUS BLOOD PH 7.36 (7.30-7.42)
[2017-04-09] MEDS ORDERED: LIDOCAINE 2% URO-JET 5 ML KIT MM ONE (05:31)
--- NOTE | 2017-04-09 07:40 | EKG REPORT ---
SEVERITY:- ABNORMAL ECG - SINUS RHYTHM RBBB AND LAFB : Confirmed by: Pedrito Jefferson MD 09-Apr-2017 07:39:14
[2017-04-09 09:06] VITALS: BP 147/88
== END 2017-04-09 09:15 | disposition home or self-care (01) ==
LOC: ER 02:00
DX: J44.1 Chronic obstructive pulmonary disease with (acute) exacerbation (principal); I12.9 Hypertensive chronic kidney disease with stage 1 through stage 4 chronic kidney disease, or unspecified chronic kidney disease; N18.9 Chronic kidney disease, unspecified; E11.22 Type 2 diabetes mellitus with diabetic chronic kidney disease; I25.10 Atherosclerotic heart disease of native coronary artery without angina pectoris; Z87.891 Personal history of nicotine dependence
CPT/HCPCS: 93005; 94640; 99285; 51701; 96365; 36415; 82553; 82550; 85025; 80053; 84484; 82803; 71010; 93010; J3475; A9270; J7620